=== PATIENT | female | born 1985 | race Caucasian/White ===

== ENCOUNTER → 2018-09-21 15:39 | Outpatient (CLI) | payer BC, SELFPAY ==
--- NOTE | 2018-09-21 15:41 | MR_ITS ---
MR lumbar spine wo con, MR 3-d myelogram/MRCP HISTORY: Low back pain, reported fracture by the patient. RT sided LBP. ITS.REASON: back pain ORDERING PHYSICIAN: Gen Yang MD PATIENT AGE: 33 years Comparison: None TECHNIQUE: Standard multiplanar multiecho sequences are performed without contrast. 3-D MIP and myelographic images are also rendered and reviewed FINDINGS: There is normal alignment. The spinal cord ends at the L1-L2 level. No obvious fracture or dislocation. No bone marrow edema evident within the lumbar vertebra. No disc herniation or canal stenosis. There is some mild facet and ligamentum flavum hypertrophy at L4-L5 and L5-S1 with mild bilateral foraminal narrowing. No paraspinal mass or paraspinal hematoma evident. IMPRESSION: 1. No acute finding. No fracture, disc herniation, or canal stenosis. 2. Mild bilateral foraminal narrowing at L4-L5 and L5-S1 from facet and ligamentum flavum hypertrophy
== END ==
PROVIDERS: PCP Emergency Medicine; Visit Provider Emergency Medicine
DX: S32.009A Unspecified fracture of unspecified lumbar vertebra, initial encounter for closed fracture (principal)
CPT/HCPCS: 72148; 76376

== ENCOUNTER → 2018-11-08 15:55 | Outpatient (POV) | payer BC, SELFPAY ==
[2018-11-08 16:06] VITALS: BP 158/98; PULSE 110; RESP 18; O2SAT 99
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
== END ==
PROVIDERS: PCP Emergency Medicine; Visit Provider Clinical Nurse Specialist Family Health
DX: M54.9 Dorsalgia, unspecified (principal); M99.83 Other biomechanical lesions of lumbar region; M46.00 Spinal enthesopathy, site unspecified
CPT/HCPCS: 99202

== ENCOUNTER → 2019-03-21 12:44 | Outpatient (POV) | payer BC, SELFPAY ==
[2019-03-21 13:21] VITALS: BP 153/98; PULSE 127; RESP 18; O2SAT 98; BMI 30.7
--- NOTE | 2019-03-21 13:37 | HMH.PAINSOAP ---
[facility] Pain Management SOAP Note Subjective:: Patient is a 33-year-old white female who we are treating for low back pain. Patient had an epidural injection back in November she stated it did not help her much she rates her pain today 4 out of 10 she states it gets worse throughout the day if she stands. She does state leaning forward does benefit her. She also has some positive facet loading. Patient and I had a long conversation in regards to moving forward. She has an MRI showing ligamentum flavum hypertrophy along with facet hypertrophy. ROS General: no recent weight change, no fever, no sleep disturbances Respiratory: no cough, no shortness of air, no recurring pulmonary infections Cardiovascular/Peripheral Vascular: No chest pain, No palpitations, no edema, no shortness of breath. Gastrointestinal: no incontinence, normal bowel movements reported Genitourinary: no incontinence Musculoskeletal: Back pain Psychiatric: normal mood/ affect, Neurological: [denies weakness in extremities], [denies balance issues] Objective:: Physical Exam General: Alert and oriented x3, no acute distress, pleasant and cooperative, [on room air] Lungs: Resps E/U, Symmetrical chest expansion, Eyes: PERRL Musculoskeletal: Flexion and extension of lumbar spine somewhat guarded secondary to pain, deep tendon reflexes normal, strength in upper and lower extremities [5/5], normal gait noted Neurological: speech clear, outside industrial sales representative equal, no gross sensory deficits Assessment:: Degenerative disc disease lumbar spine, ligamentum flavum hypertrophy, spinal stenosis, facet arthropathy Plan:: We will schedule an L4-L5 L5-S1 medial branch block bilaterally see if this is beneficial for the patient. If it is not we will follow-up with her and potentially discuss a vertiflex procedure. Patient's been instructed to call the office if she has any issues prior to her next appointment. She is currently not on any anticoagulation therapy. She is had this pain over 6 months. She is continuing a home stretching program. Dr. Hopkins has reviewed this note and agrees with this plan of care. This note was dictated using voice recognition software and may contain errors or omissions
== END ==
PROVIDERS: PCP Emergency Medicine; Visit Provider Clinical Nurse Specialist Family Health
DX: M51.36 Other intervertebral disc degeneration, lumbar region (principal); M46.00 Spinal enthesopathy, site unspecified; M48.00 Spinal stenosis, site unspecified; M12.88 Other specific arthropathies, not elsewhere classified, other specified site
CPT/HCPCS: 99212

== ENCOUNTER → 2019-03-29 11:47 | Outpatient (POV) | payer BC, SELFPAY ==
[2019-03-29 12:06] VITALS: BP 146/98; PULSE 119; RESP 18; O2SAT 98; BMI 31.9
--- NOTE | 2019-03-29 12:26 | XR_ITS ---
EXAM: XR lumbar spine 6V w bending HISTORY: ITS.REASON: BACK PAIN ORDERING PHYSICIAN: Gail Kumar APRN PATIENT AGE: 33 years COMPARISON: None FINDINGS: Normal alignment. No fracture or dislocation. No lytic or blastic change. No significant degenerative change. The disc spaces are preserved. Flexion-extension views are also obtained showing no evidence of abnormal subluxation in flexion or extension.. Incidental note made of spina bifida occulta of L1 IMPRESSION: Negative lumbar spine with no abnormal subluxation in flexion or extension
--- NOTE | 2019-03-29 16:00 | HMH.PAINSOAP ---
[facility] Pain Management SOAP Note Subjective:: Patient is a pleasant 33-year-old white female who presents today for low back pain. She is following up after a medial branch block/facet injection at L4-L5 and L5-S1. Patient says that this injection was not beneficial to her, but actually caused her worsening pain to her back after the injection. Patient says that she feels worse with standing and walking, but feels better when she leans forward. Patient has had pain for greater than 6 months. Patient has tried physical therapy, along with injective therapy, and anti-inflammatories with little to no relief. Patient is interested in discussing the Veriflex procedure. She had an MRI in the past that did show ligamentum flavum hypertrophy along with facet hypertrophy. Review of Systems General: No recent weight changes, no fever, no sleep disturbances Respiratory: No cough, no shortness of air, no recurring pulmonary infections Cardiovascular/peripheral vascular: No chest pain, no palpitations, no edema, no shortness of breath Gastrointestinal: No new onset incontinence, normal bowel movements reported Genitourinary: No new onset incontinence Musculoskeletal: Back pain Psychiatric: Normal mood/affect Neurological: [Denies weakness in extremities], [denies balance issues] Objective:: Physical exam General: Alert and oriented x3, no acute distress, pleasant and cooperative, [on room air] Lungs: Respirations even and unlabored, symmetrical chest expansion Eyes: PERRL Musculoskeletal: Flexion and extension of lumbar spine somewhat guarded secondary to pain, deep tendon reflexes normal, strength in upper and lower extremities [5/5], normal gait noted Neurological: Speech clear, dry ice maker equal, no gross sensory deficit Assessment:: Degenerative disc disease lumbar spine, ligamentum flavum hypertrophy, spinal stenosis, facet arthropathy Plan:: The patient would like to proceed with a vertical flex procedure. She is not on any anticoagulation therapy. She understands she will require x-rays prior to scheduling of the procedure. We will send her today for flexion and extension x-ray spine. We will follow-up with her after the x-ray to discuss the plan of care. She is been instructed to call the office if she has any concerns prior to her next appointment. Dr. Hopkins has reviewed this note and agrees with this plan of care. This note was dictated using voice recognition software and make contain errors or omissions.
--- NOTE | 2019-03-29 16:04 | P.CONS_ITS ---
[facility] Pain Management SOAP Note Subjective:: Patient is a pleasant 33-year-old white female who presents today for low back pain. She is following up after a medial branch block/facet injection at L4-L5 and L5-S1. Patient says that this injection was not beneficial to her, but actually caused her worsening pain to her back after the injection. Patient says that she feels worse with standing and walking, but feels better when she leans forward. Patient has had pain for greater than 6 months. Patient has tried physical therapy, along with injective therapy, and anti-inflammatories with little to no relief. Patient is interested in discussing the Veriflex procedure. She had an MRI in the past that did show ligamentum flavum hypertrop hy along with facet hypertrophy. Review of Systems General: No recent weight changes, no fever, no sleep disturbances Respiratory: No cough, no shortness of air, no recurring pulmonary infections Cardiovascular/peripheral vascular: No chest pain, no palpitations, no edema, no shortness of breath Gastrointestinal: No new onset incontinence, normal bowel movements reported Genitourinary: No new onset incontinence Musculoskeletal: Back pain Psychiatric: Normal mood/affect Neurological: [Denies weakness in extremities], [denies balance issues] Objective:: Physical exam General: Alert and oriented x3, no acute distress, pleasant and cooperative, [on room air] Lungs: Respirations even and unlabored, symmetrical chest expansion Eyes: PERRL Musculoskeletal: Flexion and extension of lumbar spine somewhat guarded secondary to pain, deep tendon reflexes normal, strength in upper and lower extremities [5/5], normal gait noted Neurological: Speech clear, bending machine operator equal, no gross sensory deficit Assessment:: Degenerative disc disease lumbar spine, ligamentum flavum hypertrophy, spinal stenosis, facet arthropathy Plan:: The patient would like to proceed with a vertical flex procedure. She is not on any anticoagulation therapy. She understands she will require x-rays prior to scheduling of the procedure. We will send her today for flexion and extension x-ray spine. We will follow-up with her after the x-ray to discuss the plan of care. She is been instructed to call the office if she has any concerns prior to her next appointment. Dr. Hopkins has reviewed this note and agrees with this plan of care. This note was dictated using voice recognition software and make contain errors or omissions.
== END ==
PROVIDERS: PCP Emergency Medicine; Visit Provider Clinical Nurse Specialist Family Health
DX: M51.36 Other intervertebral disc degeneration, lumbar region (principal); M46.00 Spinal enthesopathy, site unspecified; M48.00 Spinal stenosis, site unspecified; M79.3 Panniculitis, unspecified
CPT/HCPCS: 72114; 99212

== ENCOUNTER → 2019-04-05 09:36 | Outpatient (POV) | payer BC, SELFPAY ==
[2019-04-05 09:49] VITALS: BP 139/94; PULSE 84; RESP 18; O2SAT 99; BMI 30.4
--- NOTE | 2019-04-05 10:04 | HMH.PAINSOAP ---
[facility] Pain Management SOAP Note Subjective:: Patient is a pleasant 33-year-old white female who presents today for follow-up. She is being treated for low back pain with radicular symptoms. Patient was denied a vertiflex procedure. She is here today to discuss this. Patient says that she has tried all therapies and does not understand why she was denied. She says she only hurts when she takes care of her kids. She says that she has had this pain for longer than 6 months. She has also been performing a home stretching program. Patient says that she has been doing more physical activity recently which has increased her pain. She rates her pain a 6 out of 10 today. She would like to discuss other options for pain control. Review of Systems General: No recent weight changes, no fever, no sleep disturbances Respiratory: No cough, no shortness of air, no recurring pulmonary infections Cardiovascular/peripheral vascular: No chest pain, no palpitations, no edema, no shortness of breath Gastrointestinal: No new onset incontinence, normal bowel movements reported Genitourinary: No new onset incontinence Musculoskeletal: Back pain Psychiatric: Normal mood/affect Neurological: [Denies weakness in extremities], [denies balance issues] Objective:: Physical exam General: Alert and oriented x3, no acute distress, pleasant and cooperative, [on room air] Lungs: Respirations even and unlabored, symmetrical chest expansion Eyes: PERRL Musculoskeletal: Flexion and extension of lumbar spine somewhat guarded secondary to pain, deep tendon reflexes normal, strength in upper and lower extremities [5/5], normal gait noted Neurological: Speech clear, visually impaired teacher equal, no gross sensory deficit Assessment:: Degenerative disc disease lumbar spine, ligamentum flavum, spinal arthropathy Plan:: We did discuss other options concerning her pain. Patient is not interested in any type of biofeedback therapy, or physical therapy. She is, however, interested in dry needling. We will schedule the patient for dry needling with physical therapy and see her back in a month to reassess her symptoms at that time. She will continue home stretching, along with anti-inflammatories. She is been instructed to call the office if she has any concerns prior to her next appointment. Dr. Hopkins has reviewed this note and agrees with this plan of care. This note was dictated using voice recognition software and make contain errors or omissions.
== END ==
PROVIDERS: PCP Emergency Medicine; Visit Provider Clinical Nurse Specialist Family Health
DX: M51.36 Other intervertebral disc degeneration, lumbar region (principal); M12.88 Other specific arthropathies, not elsewhere classified, other specified site
CPT/HCPCS: 99212

== ENCOUNTER → 2020-08-24 13:41 | Outpatient (CLI) | payer OTHER, SELFPAY ==
[2020-08-26 09:02] LABS: Covid-19 Nasal PCR Sendout UK Not Detected
== END ==
PROVIDERS: PCP Emergency Medicine; Visit Provider Emergency Medicine
DX: Z03.818 Encounter for observation for suspected exposure to other biological agents ruled out (principal)
CPT/HCPCS: U0003

== ENCOUNTER 2021-04-15 15:47 | Emergency (ER) | payer OTHER, SELFPAY ==
[2021-04-15 15:47] VITALS: BP 156/100; PULSE 102; RESP 18; TEMP 36.8; O2SAT 97; BMI 30.7
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
[2021-04-15 18:35] VITALS: BP 133/91; PULSE 90; RESP 18; TEMP 36.9; O2SAT 94
== END 2021-04-15 18:36 | disposition home or self-care (01) ==
PROVIDERS: Emergency Provider Emergency Medicine; PCP Emergency Medicine
DX: M43.6 Torticollis (principal); V53.5XXA Driver of pick-up truck or van injured in collision with car, pick-up truck or van in traffic accident, initial encounter; Y92.414 Local residential or business street as the place of occurrence of the external cause
CPT/HCPCS: 70450; 72125; 99282

== ENCOUNTER → 2021-05-23 15:43 | Outpatient (CLI) | payer OTHER, SELFPAY ==
--- NOTE | 2021-05-23 15:43 | MR_ITS ---
PROCEDURE: MR LUMBAR SPINE WO CON CLINICAL INDICATION: back pain COMPARISON: MR SPLUMBWO MR lumbar spine wo con from 09/21/2018 TECHNIQUE: Standard multiplanar multiecho sequences are performed without contrast. 3-D MIP and myelographic images are also rendered and reviewed FINDINGS: Normal alignment. Spinal cord ends at the L1-L2 level. L1-L2: Unremarkable. L2-L3: Unremarkable. L3-L4: Unremarkable. L4-5: Mild facet and ligamentum hypertrophic change with mild bilateral lateral recess and mild left-sided foraminal narrowing. L5-S1: Minimal bulging disc. Facet and ligamentum hypertrophic change with mild bilateral foraminal narrowing left greater than right. No extruded herniated disc. No bony canal stenosis. IMPRESSION: 1. L4-5: Mild facet and ligamentum hypertrophic change with mild bilateral lateral recess and mild left-sided foraminal narrowing. L5-S1: Minimal bulging disc. Facet and ligamentum hypertrophic change with mild bilateral foraminal narrowing left greater than right. 2. No extruded herniated disc. 3. No bony canal stenosis. Dictated by: Darius Hair MD 05/24/2021 14:42 Darius Hair MD in [place] 05/24/2021 14:42
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
--- NOTE | 2021-05-23 17:03 | MR_ITS ---
PROCEDURE: MR HEAD/BRAIN WO CON CLINICAL INDICATION: concussion headache COMPARISON: CT CT HEAD/BRAIN WO CON from 04/15/2021 TECHNIQUE: Routine multiplanar multi echo sequences are performed without gadolinium enhancement. FINDINGS: No midline shift, mass effect, intracranial hemorrhage, or hydrocephalus is evident. No evidence of acute infarction. The cerebellopontine angle, cerebellum, and brainstem have an unremarkable appearance. The pituitary, optic chiasm, corpus callosum, and craniocervical junction are unremarkable. No mastoid effusion or sinus air-fluid level. There is mild leftward nasal septal deviation. The orbits have an unremarkable appearance the hippocampal structures are unremarkable in the temporal horns are symmetric. IMPRESSION: Negative MRI of the brain without contrast Dictated by: Darius Hair MD 05/24/2021 10:40 Darius Hair MD in [place] 05/24/2021 10:40
== END ==
PROVIDERS: PCP Emergency Medicine; Visit Provider Emergency Medicine
DX: M54.2 Cervicalgia (principal); M54.9 Dorsalgia, unspecified; S16.1XXA Strain of muscle, fascia and tendon at neck level, initial encounter; S06.0X9A Concussion with loss of consciousness of unspecified duration, initial encounter; V87.7XXA Person injured in collision between other specified motor vehicles (traffic), initial encounter
CPT/HCPCS: 70551; 72141; 72148; 76376

== ENCOUNTER 2021-06-01 11:41 | Emergency (ER) | payer OTHER, SELFPAY ==
--- NOTE | 2021-06-01 13:13 | HMH.EDUTC ---
[facility] [place] Clinical Impression: Strep throat, Exposure to COVID-19 virus Disposition: Home, Self-Care Condition on Discharge: Good Instructions: Strep Throat, DI for Strep Throat, DI for COVID-19 (Suspected or Confirmed ), Preventing the Spread of Coronavirus Discharge Instructions Additional Instructions: Drink plenty of fluids. Take tylenol or ibuprofen for pain or fever. Take the medications as directed. Follow up with your regular doctor. GO TO THE ER FOR ANY WORSENING SYMPTOMS Throw your tooth brush away and get a new one. Quarantine until you know the results of your covid-19 test. If it is positive, the health department should call you and give you further instructions about your length of Quarantine and other things. Notify your school or workplace of your results and follow their instructions regarding return to work/school. Prescriptions: Brompheniramine/Pseudoephed/Dm [Bromfed Dm Cough Syrup] 5 ml PO Q6HP PRN #240 ml PRN Reason: Cough Transmission Status: Received by [facility] Cefdinir [Omnicef 300mg Capsule] 300 mg PO BID #20 cap Transmission Status: Received by [facility] Referrals: Gen Yang MD [Primary Care Provider] - Forms: Work/School Release Time of Disposition: 14:04 Medical Decision Making - Medical Records Medical records reviewed: No: I reviewed the patient's medical records. - Mihir Inquiry Pt receiving controlled substance: No Vital Signs: 06/01/21 13:14 06/01/21 14:20 Temperature 97.8 F 97.8 F Temperature Source Oral Tympanic Pulse Rate 103 H Pulse Rate [Apical] 103 H Respiratory Rate 18 18 Blood Pressure 167/115 H Blood Pressure [Right Arm] 167/115 H Blood Pressure Mean [Right Arm] 132 Blood Pressure Source Automatic Cuff Blood Pressure Source [Right Arm] Automatic Cuff Blood Pressure Position Sitting Blood Pressure Position [Right Arm] Sitting 02 Sat by Pulse Oximetry 96 Oxygen Delivery Method Room Air Room Air - Lab Data Lab results reviewed: Yes: I reviewed the patient's lab results. Lab Results 06/01/21 13:23: Strep Scn Rapid Clinic Positive A 06/01/21 13:30: Chlamy pneumoniae PCR Not detected, Adenovirus (PCR) Not detected, B. pertussis DNA (PCR) Not detected, Coronavirus OC43 (PCR) Not detected, Coronavirus HKU1 (PCR) Not detected, Coronavirus 229E (PCR) Not detected, SARS-CoV-2 (PCR) Not detected, Coronavirus NL63 (PCR) Not detected, Human Metapneumovir PCR Not detected, Influenza A (H1) PCR Not detected, Influ A (H1N1/09) PCR Not detected, Influenza A (H3) PCR Not detected, Influenza Type A (PCR) Not detected, Influenza Type B (PCR) Not detected, M. pneumoniae (PCR) Not detected, Parainfluenza 1 (PCR) Not detected, Parainfluenza 2 (PCR) Not detected, Parainfluenza 3 (PCR) Not detected, Parainfluenza 4 (PCR) Not detected, RSV (PCR) Not detected, Entero/Rhino (PCR) Not detected [facility] [place] HPI - General Stated complaint: fever, cough,sore throat, soa, Time Seen by Provider: 06/01/21 13:13 - History of Present Illness Provider Complaint: She c/o sore throat, cough, low grade fever and chills for the past 3 days. She is a teacher. She has had the first shot of the 2 shot regimen for covid. - Related Data Previous Rx's Medication Instructions Recorded Lidocaine [Lidoderm 5% transdermal 1 each TP Q12H PRN #10 adh..patch 04/15/21 patch] clonazepam 0.5 mg tablet 0.5 mg PO TID #90 tab 05/01/21 tramadol 50 mg tablet 50 mg PO TID #90 tab 05/01/21 bisoprolol fumarate 5 mg tablet See Rx Instructions .ROUTE 05/22/21 .COMPLEX #90 tab duloxetine 30 mg capsule,delayed See Rx Instructions .ROUTE 05/22/21 release .COMPLEX #90 cap lisinopril 40 mg tablet 40 mg PO DAILY #90 tab 05/22/21 metformin 500 mg tablet 500 mg PO DAILY #30 tab 05/22/21 sumatriptan succinate 25 mg tablet See Rx Instructions .ROUTE 05/22/21 .COMPLEX #9 tab tizanidine 4 mg capsule 4 mg PO TID PRN #90 cap 05/22/21 amitriptyline 100
[2021-06-01 13:14] VITALS: BP 167/115; PULSE 103; RESP 18; TEMP 36.6; O2SAT 96; BMI 32.5
[2021-06-01 13:58] LABS: UTC Strep Screen (Rapid) Positive (Negative)
[2021-06-01 14:20] VITALS: BP 167/115; PULSE 103; RESP 18; TEMP 36.6; O2SAT 96
[2021-06-01 14:30] LABS: Adenovirus,PCR Not Detected (NotDetected); Bordetella Pertussis Not Detected (NotDetected); Chlamydophila Pneumoniae, PCR Not Detected (NotDetected); Coronavirus 19, PCR Not Detected (NotDetected); Coronavirus 229E Not Detected (NotDetected); Coronavirus NL63 Not Detected (NotDetected); Coronavirus OC43 Not Detected (NotDetected); Coronovirus HKU1,PCR Not Detected (NotDetected); Human Metapneumovirus Not Detected (NotDetected); Influenza A, PCR Not Detected (NotDetected); Influenza AH1, 2009 Not Detected (NotDetected); Influenza AH1, PCR Not Detected (NotDetected); Influenza AH3,PCR Not Detected (NotDetected); Influenza B, PCR Not Detected (NotDetected); Mycoplasma Pneumoniae, PCR Not Detected (NotDetected); Parainfluenza 1, PCR Not Detected (NotDetected); Parainfluenza 2, PCR Not Detected (NotDetected); Parainfluenza 3, PCR Not Detected (NotDetected); Parainfluenza 4, PCR Not Detected (NotDetected); Respiratory Syncytial Virus Not Detected (NotDetected); Rhinovirus/Enterovirus Not Detected (NotDetected)
== END 2021-06-01 14:21 | disposition home or self-care (01) ==
PROVIDERS: Emergency Provider Nurse Practitioner Family; PCP Emergency Medicine
DX: J02.0 Streptococcal pharyngitis (principal); Z20.822 Contact with and (suspected) exposure to COVID-19
CPT/HCPCS: 87581; 87632; 87798; 87880; 99202; C9803; G0463; U0003; U0005

== ENCOUNTER 2021-06-28 18:20 | Emergency (ER) | payer OTHER, SELFPAY ==
[2021-06-28 18:54] VITALS: BP 127/92; PULSE 110; RESP 20; TEMP 37.2; O2SAT 98; BMI 32.8
--- NOTE | 2021-06-28 19:00 | HMH.EDUTC ---
[facility] [place] Disposition Clinical Impression: Viral syndrome Disposition: Home, Self-Care Condition on Discharge: Good Instructions: DI for Viral Syndrome, Sore Throat, DI for Headache Additional Instructions: *Monitor Temp, Over the counter Motrin or Tylenol as directed/as needed Tylenol every 4 hours and Motrin every 6 hours (as long as your family doctor has told you that you can take it) for fever or pain. and straight to ER if unable to lower temp less than 101.0 after medication given *Warm salt water gargles may help to soothe the throat *Throat Lozenges *Warm fluids like tea with honey may help to soothe the throat *Sleep elevated *Humidifier/Vaporizer Your throat swab was sent for culture. Those results are typically sent to your primary care. Be sure to follow up in 2-3 days with your family doctor/primary care physician if no improvement so they can review those result and treat if necessary. If you don?t have a primary care doctor, I recommend you get one but in the mean time, you will have to return to a walk in clinic Follow up IMMEDIATELY for new or worsening symptoms or no Noticeable improvement over the next 48-72 hours. 911 for difficulty breathing or swallowing Referrals: Gen Yang MD [Primary Care Provider] - As needed Time of Disposition: 19:16 Medical Decision Making - Mihir Inquiry Pt receiving controlled substance: No Mihir was queried for this patient: No Vital Signs: 06/28/21 18:54 Temperature 98.9 F Temperature Source Temporal Artery Scan Pulse Rate [Right Brachial] 110 H Respiratory Rate 20 Blood Pressure [Right Arm] 127/92 H Blood Pressure Mean [Right Arm] 103 Blood Pressure Source [Right Arm] Automatic Cuff Blood Pressure Position [Right Arm] Standing 02 Sat by Pulse Oximetry 98 Oxygen Delivery Method Room Air - Lab Data Lab results reviewed: Yes: I reviewed the patient's lab results. Lab Results 06/28/21 18:46: Strep Scn Rapid Clinic Negative Orders (Tests/Meds): ORDERS Category Date Time Status Strep Screen Confirmation Stat Micro 06/28/21 18:46 Received [facility] [place] HPI - General Stated complaint: sore throat,vomiting REEVES Time Seen by Provider: 06/28/21 19:00 Mode of Arrival: Ambulatory Source of Information: Patient Limitations: No Limitations Description of Symptoms (Recalled from Triage Doc. by RN): PATIENT C/O SORE THROAT AND HEADACHE HEENT Symptoms (Recalled from RN notes): Yes Resp Symptoms (Recalled from RN notes): No Skin Symptoms (Recalled from RN notes): No MS Symptoms (Recalled from RN notes): No Functional Status (Recalled from RN notes): WNL - History of Present Illness Provider Complaint: Patient states that she thinks she may have strep throat States that she has been having headache and sore throat for about 3 days that hasnt got better and her children have had similar symptoms so she came in to get checked and tested - Related Data Previous Rx's Medication Instructions Recorded Lidocaine [Lidoderm 5% transdermal 1 each TP Q12H PRN #10 adh..patch 04/15/21 patch] clonazepam 0.5 mg tablet 0.5 mg PO TID #90 tab 05/01/21 tramadol 50 mg tablet 50 mg PO TID #90 tab 05/01/21 bisoprolol fumarate 5 mg tablet See Rx Instructions .ROUTE 05/22/21 .COMPLEX #90 tab duloxetine 30 mg capsule,delayed See Rx Instructions .ROUTE 05/22/21 release .COMPLEX #90 cap lisinopril 40 mg tablet 40 mg PO DAILY #90 tab 05/22/21 metformin 500 mg tablet 500 mg PO DAILY #30 tab 05/22/21 sumatriptan succinate 25 mg tablet See Rx Instructions .ROUTE 05/22/21 .COMPLEX #9 tab tizanidine 4 mg capsule 4 mg PO TID PRN #90 cap 05/22/21 amitriptyline 100 mg tablet 100 mg PO DAILY #90 tab 05/24/21 Brompheniramine/Pseudoephed/Dm 5 ml PO Q6HP PRN #240 ml 06/01/21 [Bromfed Dm Cough Syrup] Cefdinir [Omnicef 300mg Capsule] 300 mg PO BID #20 cap 06/01/21 Allergies Allergy/AdvReac Type Severity Reaction Status Date / Time No Known Allergies Allergy Verified
[2021-06-28 19:01] LABS: UTC Strep Screen (Rapid) Negative (Negative)
[2021-06-28 19:17] VITALS: BP 127/92; PULSE 110; RESP 20; TEMP 37.2; O2SAT 98
== END 2021-06-28 19:27 | disposition home or self-care (01) ==
PROVIDERS: Emergency Provider Nurse Practitioner; PCP Emergency Medicine
DX: B34.9 Viral infection, unspecified (principal); J02.9 Acute pharyngitis, unspecified; F41.8 Other specified anxiety disorders
CPT/HCPCS: 87880; 99202; G0463

== ENCOUNTER 2021-08-10 17:04 | Emergency (ER) | payer OTHER, SELFPAY ==
[2021-08-10 17:10] VITALS: BP 127/86; PULSE 109; RESP 19; TEMP 36.9; O2SAT 99; BMI 34.5
--- NOTE | 2021-08-10 17:41 | HMH.EDUTC ---
[facility] [place]: Cough Disposition: Home, Self-Care Condition on Discharge: Good Instructions: Cough, DI for COVID-19 (Suspected or Confirmed ), Preventing the Spread of Coronavirus Discharge Instructions Additional Instructions: ? Monitor temp. Tylenol every 4 hours as needed and / or ibuprofen every 6 hours as needed ( As long as your primary care physician has told you that it ok to take both. For fever/aches/pains ER if no less than 101 despite Tylenol or Motrin ? Humidifier/vaporizer or hot steamy shower *Tessalon Perles will not cause drowsiness but use at bedtime to help stop cough so that you may get some rest. Finish taking the Azithromycin Follow up IMMEDIATELY for new or worsening of symptoms OR no noticeable improvement over the next 48-72 hours. 911 immediately for any life threatening symptoms such as chest pain or difficulty breathing You were tested for today for COVID19 your test result should be back in the next 24-48 hours, you may check for your result on the [facility] [facility] portal if you have trouble logging on you may call for assistance or get you results in person from Health Information office Thursday 8am 430pm You was given a handout with instructions for Self Quarantine and Self isolation for while you wait on test results and what to do if they are positive If you are positive the Health Dept will be contacting you also Prescriptions: Benzonatate [Benzonatate 100mg cap] 100 mg PO Q8HP PRN #30 cap PRN Reason: Cough Transmission Status: Received by [facility] Referrals: Gen Yang MD [Primary Care Provider] - As needed Forms: Work/School Release Medical Decision Making - Mihir Inquiry Pt receiving controlled substance: No Mihir was queried for this patient: No Vital Signs: 08/10/21 17:10 08/10/21 18:02 Temperature 98.4 F 98.4 F Temperature Source Oral Pulse Rate 109 H Pulse Rate [Right Brachial] 109 H Respiratory Rate 19 19 Blood Pressure 127/86 Blood Pressure [Right Arm] 127/86 Blood Pressure Mean [Right Arm] 99 Blood Pressure Source [Right Arm] Automatic Cuff Blood Pressure Position [Right Arm] Sitting 02 Sat by Pulse Oximetry 99 Oxygen Delivery Method Room Air Orders (Tests/Meds): ED MEDICATIONS Discontinued Medications Generic Name Dose Route Start Last Admin Trade Name Freq PRN Reason Stop Dose Admin Ceftriaxone Sodium 1 gm 08/10/21 17:50 08/10/21 18:00 Ceftriaxone 1gm Vial IM 08/10/21 17:51 1 gm ONCE ONE Administration Lidocaine HCl 0 ml 08/10/21 17:50 08/10/21 18:00 Lidocaine 1% 5ml Pf Vial IM 08/10/21 17:51 2 ml ONCE ONE Administration Methylprednisolone Sodium Succinate 125 mg 08/10/21 17:50 08/10/21 18:00 Methylprednisolone Sod Succ 125mg Vial IM 08/10/21 17:51 125 mg ONCE ONE Administration ORDERS Category Date Time Status Covid-19 Nasal PCR ([facility]) Routine Lab 08/10/21 17:20 [place] [facility] [place] - General Stated complaint: cough, congestion Time Seen by Provider: 08/10/21 17:41 Mode of Arrival: Ambulatory Source of Information: Patient Limitations: No Limitations Description of Symptoms (Recalled from Triage Doc. by RN): PATIENT C/O CONGESTION, DRY COUGH AND FATIGUE X 3 DAYS HEENT Symptoms (Recalled from RN notes): Yes Resp Symptoms (Recalled from RN notes): Yes Skin Symptoms (Recalled from RN notes): No MS Symptoms (Recalled from RN notes): No Functional Status (Recalled from RN notes): wnl - History of Present Illness Provider Complaint: Patient states that she was recently exposed to someone that was positive for COVID states that she has been having bad cough, sinus congestion and feeling tired and achy for several days State that today her cough was still happening and she was tired from not being able to sleep from it so she came in to get tested for COVID and try to see if she could get something else for the cough - Related Data Previous Rx's M
[2021-08-10 18:02] VITALS: BP 127/86; PULSE 109; RESP 19; TEMP 36.9; O2SAT 99
== END 2021-08-10 18:13 | disposition home or self-care (01) ==
PROVIDERS: Emergency Provider Nurse Practitioner; PCP Emergency Medicine
DX: Z20.822 Contact with and (suspected) exposure to COVID-19 (principal); J02.9 Acute pharyngitis, unspecified; R05.1 Acute cough; R51.9 Headache, unspecified
CPT/HCPCS: 96372; 99202; C9803; G0463; U0003; U0005

== ENCOUNTER → 2021-09-19 11:31 | Outpatient (CLI) | payer OTHER, SELFPAY ==
--- NOTE | 2021-09-19 11:35 | XR_ITS ---
FINAL REPORT CLINICAL HISTORY: RT WRIST PAIN, after fall FINDINGS: 2 views of the right wrist were obtained. There is no acute fracture. There is no dislocation. The joint spaces are intact. There is no acute soft tissue abnormality. IMPRESSION: No acute process. Reviewed, Interpreted and Dictated by Sae Sharp MD Transcribed by Jose Urbina Authenticated by Sae Sharp MD on 09/19/2021 12:22:16 PM [facility]
== END ==
PROVIDERS: PCP Emergency Medicine; Visit Provider Nurse Practitioner Family
DX: M25.531 Pain in right wrist (principal)
CPT/HCPCS: 73100

== ENCOUNTER → 2021-11-01 16:00 | Outpatient (CLI) | payer OTHER, SELFPAY ==
[2021-11-01 18:43] LABS: HCG,Quantitative < 2 mIU/ml (0-5.42)
== END ==
PROVIDERS: Visit Provider Emergency Medicine
DX: O03.9 Complete or unspecified spontaneous abortion without complication (principal)
CPT/HCPCS: 84702

== ENCOUNTER → 2022-02-11 14:34 | Outpatient (CLI) | payer BC, OTHER, SELFPAY | PROVIDERS: PCP Emergency Medicine; Visit Provider Nurse Practitioner Obstetrics & Gynecology | DX: N92.6 Irregular menstruation, unspecified (principal) | CPT/HCPCS: 36415; 84702 ==

== ENCOUNTER → 2022-02-21 12:52 | Outpatient (CLI) | payer OTHER, SELFPAY ==
--- NOTE | 2022-02-21 12:52 | US_ITS ---
FINAL REPORT CLINICAL HISTORY: for dates FINDINGS: Sonographic images of the pelvis were obtained. A single, living intrauterine is noted. A yolk sac is present and measures 0.64 cm. Mio to rump length measures 2.05 cm which corresponds to 8 weeks 5 days gestation. Heartbeat is identified and measures 160 beats per minute. The right ovary is within normal limits. The left ovary is within normal limits. IMPRESSION: Single, living, intrauterine gestation with 8 weeks 5 days gestational age. Reviewed, Interpreted and Dictated by Manpreet Dunlap III, MD Transcribed by Yesy Aviles Authenticated and . [facility]
== END ==
PROVIDERS: PCP Emergency Medicine; Visit Provider Nurse Practitioner Obstetrics & Gynecology
DX: Z34.90 Encounter for supervision of normal pregnancy, unspecified, unspecified trimester (principal)
CPT/HCPCS: 76801

== ENCOUNTER 2022-03-03 20:22 | Emergency (ER) | payer BC, OTHER, SELFPAY ==
[2022-03-03 20:23] VITALS: BP 151/100; PULSE 133; RESP 16; TEMP 36.7; O2SAT 100; BMI 33.9
--- NOTE | 2022-03-03 20:33 | XR_ITS ---
PROCEDURE INFORMATION: Exam: XR Chest Exam date and time: 03/03/2022 8:51 PM Age: 36 years old Clinical indication: Cough; Additional info: Covid symptoms TECHNIQUE: Imaging protocol: Radiologic exam of the chest. Views: 2 views. COMPARISON: MR CERVICAL SPINE WO CON 05/23/2021 5:09 PM FINDINGS: Lungs: 8 mm nodular opacity within the right lower lung zone. No lobar consolidation. Pleural spaces: No pleural effusion. No pneumothorax. Heart/Mediastinum: No cardiomegaly. Bones/joints: Unremarkable. IMPRESSION: 8 mm opacity within the right lower lung zone which may be a nodule or granuloma. No lobar consolidation.
[2022-03-03 20:43] LABS: Influenza A, PCR Not Detected (NotDetected); Influenza B, PCR Not Detected (NotDetected)
[2022-03-03 21:04] LABS: Basophils # 0.1 K/mm3 (0-0.2); Basophils % 2.4 % (0.1-2.0); Eosinophils # 0.1 K/mm3 (0.0-0.4); Eosinophils % 1.2 % (0.1-12.0); Hematocrit 35.2 % (37.0-47.0); Hemoglobin 11.7 g/dL (12.2-16.2); Lymphocytes # 1.3 K/mm3 (0.7-4.5); Lymphocytes % 25.5 % (10-50); Mean Corpuscular HGB Conc 33.1 g/dL (31.8-35.4); Mean Corpuscular Hemoglobin 29.4 pg (27.0-31.2); Mean Corpuscular Volume 88.9 fl (81-99); Mean Platelet Volume 8.4 fl (7.4-10.4); Monocytes # 0.4 K/mm3 (0.1-1.0); Monocytes % 8.3 % (1.7-9.3); Neutrophils # 3.3 K/mm3 (1.8-7.8); Neutrophils % 62.6 % (37.0-80.0); Platelet Count 341 K/mm3 (142-424); Red Blood Count 3.96 M/mm3 (4.20-5.40); Red Cell Distribution Width 14.6 % (11.5-17.5); White Blood Count 5.2 K/mm3 (4.8-10.8)
[2022-03-03 21:11] LABS: Coronavirus 19, PCR Detected (NotDetected)
[2022-03-03 21:16] LABS: Chloride 100 mmol/L (98-107); Sodium 134 mmol/L (136-145)
[2022-03-03 21:17] LABS: Potassium 3.6 mmoL/L (3.5-5.1)
[2022-03-03 21:19] LABS: Alanine Aminotransferase 19 U/L (12-78); Albumin Level 4.4 g/dl (3.5-5.0); Albumin/Globulin Ratio 1.4 (1.1-1.8); Alkaline Phosphatase 56 U/L (38-126); Anion Gap 10.6 mEq/L (5-15); Aspartate Amino Transferase 29 U/L (14-36); Bilirubin,Total 0.2 mg/dl (0.2-1.3); Blood Urea Nitrogen 7 mg/dl (7-17); Carbon Dioxide 27 mmol/L (22.0-30.0); Creatinine Clearance Estimated 195 mL/min (50-200); Estimated Glomerular Filt Rate 113 ml/min (>60); GFR (African American) 137 ML/MIN (>60); Globulin 3.2 g/dL (1.3-3.2); Glucose 137 mg/dl (74-100); Total Protein,Serum 7.6 g/dl (6.3-8.2)
[2022-03-03 21:20] LABS: Calcium 9.3 mg/dl (8.4-10.2)
--- NOTE | 2022-03-03 22:09 | HMH.EDURI ---
ED Disposition Clinical Impression: COVID-19 Qualifiers: Weeks of gestation: 10 weeks Qualified Code(s): Z3A.10 - 10 weeks gestation of Disposition: Home, Self-Care Condition on Discharge: Good Instructions: DI for COVID-19 (Suspected or Confirmed ) Additional Instructions: fluids and call ob in am Referrals: Gen Yang MD [Primary Care Provider] - - Critical Care Critical Care Time: No Attestation: On 03/03/22, the high probability of a clinically significant, sudden or life threatening deterioration of the following system(s) required my full and direct attention, intervention and personal management. The time I documented below is in addition to time spent performing reported procedures but includes the following listed in this critical care notation. Medical Decision Making - Medical Records Medical records reviewed: Yes: I reviewed the patient's medical records. - Mihir Inquiry Pt receiving controlled substance: No Vital Signs: 03/03/22 20:23 Temperature 98.1 F Temperature Source Oral Pulse Rate [Left Radial] 133 H Respiratory Rate 16 Blood Pressure [Right Arm] 151/100 H Blood Pressure Mean [Right Arm] 117 Blood Pressure Source [Right Arm] Automatic Cuff Blood Pressure Position [Right Arm] Sitting 02 Sat by Pulse Oximetry 100 Oxygen Delivery Method Room Air - Lab Data Lab results reviewed: Yes: I reviewed the patient's lab results. Lab Results 03/03/22 20:26: SARS-CoV-2 (PCR) Detected A, Influenza A Untype (PCR) Not detected, Influenza Type B (PCR) Not detected 03/03/22 20:57: WBC 5.2, RBC 3.96 L, Hgb 11.7 L, Hct 35.2 L, MCV 88.9, MCH 29.4, MCHC 33.1, RDW 14.6, Plt Count 341, MPV 8.4, Neut % (Auto) 62.6, Lymph % (Auto) 25.5, [place] % (Auto) 8.3, Eos % (Auto) 1.2, Baso % (Auto) 2.4 H, Neut # (Auto) 3.3, Lymph # (Auto) 1.3, [place] # (Auto) 0.4, Eos # (Auto) 0.1, Baso # (Auto) 0.1 03/03/22 20:57: Sodium 134 L, Potassium 3.6, Chloride 100, Carbon Dioxide 27, Anion Gap 10.6, BUN 7, Creatinine 0.60, Estimated Creat Clear 195, Estimated GFR 113, Est GFR ( Amer) 137, Glucose 137 H, Calcium 9.3, Total Bilirubin 0.2, AST 29, ALT 19, Alkaline Phosphatase 56, Total Protein 7.6, Albumin 4.4, Globulin 3.2, Albumin/Globulin Ratio 1.4 Result diagrams: 03/03/22 20:57 03/03/22 20:57 Orders (Tests/Meds): ED MEDICATIONS Discontinued Medications Generic Name Dose Route Start Last Admin Trade Name Freq PRN Reason Stop Dose Admin Acetaminophen 650 mg 03/03/22 23:11 03/03/22 23:13 Acetaminophen 325mg Tab PO 03/03/22 23:12 650 mg ONCE ONE Administration Sodium Chloride 1,000 mls @ 999 mls/hr 03/03/22 20:45 03/03/22 20:44 Sod Chlor 0.9% 1000ml Bag IV 03/03/22 21:45 999 mls/hr .Q1H1M KAT Administration Sodium Chloride 1,000 mls @ 999 mls/hr 03/03/22 22:30 03/03/22 22:32 Sod Chlor 0.9% 1000ml Bag IV 03/03/22 23:30 999 mls/hr .Q1H1M KAT Administration Promethazine HCl 25 mg 03/03/22 22:18 03/03/22 22:32 Promethazine Hcl 25mg/Ml 1ml Vial IV 03/03/22 22:19 25 mg ONCE ONE Administration Sodium Chloride 25 ml 03/03/22 22:18 Sodium Chloride 0.9% 25ml Bag IV 03/03/22 22:19 ONCE ONE - Radiology Data #1 Image(s): Chest Image Reviewed: Yes I have reviewed radiologist's interpretation Preliminary Findings: Normal/NAD - Physician Consults Physician Consulted: shae Reason -: Pt condition Medical Decision Narrative: covid-19 with stable exam and labs - URI/Sore Throat HPI - General Chief Complaint: Upper Respiratory Infection Stated Complaint: exposed to covid, SOA, body aches cough sore throa Time Seen by Provider: 03/03/22 22:09 Mode of Arrival: Ambulatory Source of Information: Patient, Medical Record Limitations: No Limitations Description of Symptoms (Recalled from ER Triage Doc. by RN): PT REPORTS RECENT KNOWN COVID EXPOSURE. PT STATES SHE IS COUGHING AND ACHES ALL OVER AND HAS NAUSEA. - Histor
--- NOTE | 2022-03-03 22:12 | PC.NURSE ---
Trey on phone radhath Dr ibarra @ this time
[2022-03-04 00:05] VITALS: BP 156/73; PULSE 83; RESP 18; TEMP 37.2; O2SAT 97
== END 2022-03-04 00:11 | disposition home or self-care (01) ==
PROVIDERS: Emergency Provider Emergency Medicine; PCP Emergency Medicine
DX: U07.1 COVID-19 (principal); J06.9 Acute upper respiratory infection, unspecified; F32.A Depression, unspecified; F41.9 Anxiety disorder, unspecified; I10 Essential (primary) hypertension; G43.909 Migraine, unspecified, not intractable, without status migrainosus; M35.00 Sjogren syndrome, unspecified; Z79.82 Long term (current) use of aspirin
CPT/HCPCS: 71046; 80053; 85025; 96361; 96374; 99284; C9803; U0003; U0005

== ENCOUNTER → 2022-03-26 16:52 | Outpatient (CLI) | payer OTHER, SELFPAY | PROVIDERS: Visit Provider Obstetrics & Gynecology | DX: Z34.90 Encounter for supervision of normal pregnancy, unspecified, unspecified trimester (principal); N39.0 Urinary tract infection, site not specified | CPT/HCPCS: 87086 ==

== ENCOUNTER → 2022-03-31 16:57 | Outpatient (CLI) | payer OTHER, SELFPAY ==
[2022-03-31 18:01] LABS: Basophils % 0.2 % (0.1-2.0); Eosinophils # 0.3 K/mm3 (0.0-0.4); Eosinophils % 3.2 % (0.1-12.0); Hemoglobin 10.9 g/dL (12.2-16.2); Lymphocytes # 2.1 K/mm3 (0.7-4.5); Lymphocytes % 25.6 % (10-50); Mean Corpuscular HGB Conc 33.1 g/dL (31.8-35.4); Mean Corpuscular Hemoglobin 28.6 pg (27.0-31.2); Mean Corpuscular Volume 86.4 fl (81-99); Mean Platelet Volume 7.3 fl (7.4-10.4); Monocytes # 0.3 K/mm3 (0.1-1.0); Monocytes % 3.5 % (1.7-9.3); Neutrophils # 5.6 K/mm3 (1.8-7.8); Neutrophils % 67.5 % (37.0-80.0); Platelet Count 340 K/mm3 (142-424); Red Blood Count 3.82 M/mm3 (4.20-5.40); Red Cell Distribution Width 13.9 % (11.5-17.5); White Blood Count 8.3 K/mm3 (4.8-10.8)
[2022-04-02 08:15] LABS: HSV 1 IgG, Type Spec <0.91 index (0.00-0.90); HSV 2 IgG, Type Spec <0.91 index (0.00-0.90); Rubella Antibodies, IgG 2.78 index (Immune >0.99)
[2022-04-02 09:13] LABS: HIV Screen 4th Generation wRfx Non Reactive (Non Reactive); Hepatitis B Surface Antigen Negative (Negative); Hepatitis C Antibody 0.1 s/co ratio (0.0-0.9)
[2022-04-02 12:17] LABS: Rapid Plasma Reagin Ab Titer Non Reactive (NonRea<1:1)
== END ==
PROVIDERS: Nurse Practitioner Obstetrics & Gynecology; PCP Emergency Medicine; Visit Provider Obstetrics & Gynecology
DX: Z34.90 Encounter for supervision of normal pregnancy, unspecified, unspecified trimester (principal)
CPT/HCPCS: 36415; 85025; 86592; 86695; 86703; 86762; 86790; 86850; 87340; 87380; G0432

== ENCOUNTER → 2022-04-29 16:29 | Outpatient (CLI) | payer OTHER, SELFPAY ==
[2022-04-29 17:19] LABS: Creatinine,Urine Random 238 mg/dL (Not Estab.)
[2022-04-29 17:20] LABS: Microalbumin/Creatinine Ratio 5.1
[2022-04-29 17:26] LABS: Chloride 104 mmol/L (98-107); Potassium 3.9 mmoL/L (3.5-5.1); Sodium 135 mmol/L (136-145)
[2022-04-29 17:29] LABS: Alanine Aminotransferase 13 U/L (12-78); Albumin Level 3.9 g/dl (3.5-5.0); Albumin/Globulin Ratio 1.3 (1.1-1.8); Alkaline Phosphatase 55 U/L (38-126); Anion Gap 9.9 mEq/L (5-15); Aspartate Amino Transferase 20 U/L (14-36); Blood Urea Nitrogen 6 mg/dl (7-17); Carbon Dioxide 25 mmol/L (22.0-30.0); Estimated Glomerular Filt Rate 140 ml/min (>60); GFR (African American) 169 ML/MIN (>60); Globulin 2.9 g/dL (1.3-3.2); Total Protein,Serum 6.8 g/dl (6.3-8.2)
[2022-04-29 17:30] LABS: Bilirubin,Total < 0.1 mg/dl (0.2-1.3); Calcium 9.3 mg/dl (8.4-10.2); Glucose 106 mg/dl (74-100)
== END ==
PROVIDERS: PCP Emergency Medicine; Visit Provider Obstetrics & Gynecology
DX: O10.919 Unspecified pre-existing hypertension complicating pregnancy, unspecified trimester (principal)
CPT/HCPCS: 36415; 80053; 82043; 82570

== ENCOUNTER → 2022-05-16 14:58 | Outpatient (CLI) | payer OTHER, SELFPAY ==
--- NOTE | 2022-05-16 14:59 | US_ITS ---
FINAL REPORT CLINICAL HISTORY: 20 week anatomy scan; advanced maternal age FINDINGS: There is a single live intrauterine gestation. Presentation is breech. The cervix is closed and measures 3.3 cm. Placenta is posterior and grade 1. Cardiac activity is confirmed at 149 bpm. The fetus is active. Three-vessel cord with satisfactory umbilical cord insertion. Four-chamber heart is noted. brain and ventricles are unremarkable. Chest and diaphragm are unremarkable. ABDOMEN: Both kidneys are unremarkable. Stomach is unremarkable. SPINE: No anomalies identified. Both arms and legs noted. AMNIOTIC FLUID: Appropriate amount. MEASUREMENTS: ULTRASOUND AGE: 20 weeks 4 days. GESTATION AGE: 20 weeks 5 days. ESTIMATED WEIGHT: 357 g GROWTH PERCENTILE: 33% BPD: 4.8 cm consistent with 20 weeks 5 days. OFD: 6.1 cm consistent with 20 weeks 5 days. HC: 17.3 cm consistent with 19 weeks 6 days. AC: 15.3 cm consistent with 20 weeks 4 days. FL: 3.4 cm consistent with 20 weeks 5 days. CEREBELLUM: 2.1 cm consistent with 20 weeks 6 days. HC/AC: 1.13 CI: 79% FL/BPD: 70% FL/AC: 22% IMPRESSION: Single living IUP with an ultrasound age of 20 weeks 5 days. Reviewed, Interpreted and Dictated by Manpreet Dunlap III, MD Transcribed by Jose Urbina Authenticated and [facility]
== END ==
PROVIDERS: PCP Emergency Medicine; Visit Provider Obstetrics & Gynecology
DX: Z34.90 Encounter for supervision of normal pregnancy, unspecified, unspecified trimester (principal); Z3A.20 20 weeks gestation of pregnancy
CPT/HCPCS: 76811

== ENCOUNTER 2022-06-19 23:06 | Observation (INO) | payer OTHER, SELFPAY ==
[2022-06-19 22:10] VITALS: BP 146/96; PULSE 125; RESP 18; TEMP 37.1; O2SAT 99; BMI 34.7
[2022-06-19 22:20] VITALS: BP 138/100
[2022-06-19 22:30] VITALS: BP 133/93
[2022-06-19 22:40] VITALS: BP 140/97
[2022-06-20] VITALS (7 sets, daily range): BP systolic 138–164; BP diastolic 77–101; PULSE 114–123; RESP 16–18; TEMP 36.6–37.2; O2SAT 97
[2022-06-20 00:03] LABS: Coronavirus 19, PCR Not Detected (NotDetected); Influenza A, PCR Not Detected (NotDetected); Influenza B, PCR Not Detected (NotDetected)
[2022-06-20 00:11] LABS: Basophils # 0.1 K/mm3 (0-0.2); Basophils % 0.5 % (0.1-2.0); Eosinophils # 0.4 K/mm3 (0.0-0.4); Eosinophils % 3.2 % (0.1-12.0); Hematocrit 35.9 % (37.0-47.0); Hemoglobin 11.9 g/dL (12.2-16.2); Lymphocytes # 2.8 K/mm3 (0.7-4.5); Lymphocytes % 21.4 % (10-50); Mean Corpuscular HGB Conc 33.2 g/dL (31.8-35.4); Mean Corpuscular Hemoglobin 28.8 pg (27.0-31.2); Mean Corpuscular Volume 86.6 fl (81-99); Mean Platelet Volume 8.9 fl (7.4-10.4); Monocytes # 0.5 K/mm3 (0.1-1.0); Monocytes % 3.8 % (1.7-9.3); Neutrophils # 9.4 K/mm3 (1.8-7.8); Neutrophils % 71.1 % (37.0-80.0); Platelet Count 338 K/mm3 (142-424); Red Blood Count 4.15 M/mm3 (4.20-5.40); Red Cell Distribution Width 13.8 % (11.5-17.5); White Blood Count 13.3 K/mm3 (4.8-10.8)
[2022-06-20 00:13] LABS: Alanine Aminotransferase 19 U/L (12-78); Albumin Level 3.8 g/dl (3.5-5.0); Albumin/Globulin Ratio 1.1 (1.1-1.8); Alkaline Phosphatase 91 U/L (38-126); Anion Gap 15.7 mEq/L (5-15); Aspartate Amino Transferase 23 U/L (14-36); Blood Urea Nitrogen 6 mg/dl (7-17); Calcium 9.1 mg/dl (8.4-10.2); Carbon Dioxide 23 mmol/L (22.0-30.0); Chloride 102 mmol/L (98-107); Creatinine Clearance Estimated 198 mL/min (50-200); Estimated Glomerular Filt Rate 112 ml/min (>60); GFR (African American) 136 ML/MIN (>60); Globulin 3.4 g/dL (1.3-3.2); Glucose 102 mg/dl (74-100); Potassium 3.7 mmoL/L (3.5-5.1); Sodium 137 mmol/L (136-145); Total Protein,Serum 7.2 g/dl (6.3-8.2)
[2022-06-20 00:14] LABS: Bilirubin,Total < 0.1 mg/dl (0.2-1.3)
[2022-06-20 00:47] LABS: Microscopic, Urine URINE MICROSCOPIC (MICROSCOPIC)
[2022-06-20 00:48] LABS: Appearance,Urine CLEAR (Clear); Bilirubin,Urine Negative (Negative); Blood, Urine Negative (Negative); Color,Urine YELLOW (Yellow); Glucose,Urine (UA) Negative (Negative); Ketones,Urine 1+ (Negative); Leukocyte Esterase,Urine Negative (Negative); Nitrate,Urine Negative (Negative); PH,Urine 6.5 (5.0-8.5); Protein,Urine Negative (Negative); Specific Gravity, Urine >= 1.030 (1.005-1.030); Urobilinogen,Urine 0.2 EU/dl (0.2)
[2022-06-20 00:59] LABS: Bacteria,Urine 1+ /lpf; Mucus,Urine 1+ /lpf
[2022-06-20 01:28] LABS: Amphetamine/Metha Screen,Urine Negative ng/ml (<1000)
[2022-06-20 01:29] LABS: Barbiturates Screen,Urine Negative ng/ml (<200)
[2022-06-20 01:30] LABS: Benzodiazepines Screen,Urine Negative ng/ml (<200)
[2022-06-20 01:31] LABS: Cannabinoid Screen,Urine Negative ng/ml (<50); Cocaine Screen,Urine Negative ng/ml (<300)
[2022-06-20 01:32] LABS: Methadone Screen,Urine Negative ng/ml (<300)
[2022-06-20 01:35] LABS: Opiate Screen,Urine Negative ng/ml (<300)
[2022-06-20 01:36] LABS: Phencyclidine Screen,Urine Negative ng/ml (<25)
--- NOTE | 2022-06-20 09:15 | EXP.HPDC ---
General Admission date:: 06/19/22 Discharge date: 06/20/22 *Admission Date: 06/19/22 *Chief complaint: Nausea, vomiting, elevated blood pressure *History of present illness: Mrs. Erendira Ahmadi is a 37 yo at 25w5d who presented to [facility] L&D with complaint of elevated blood pressure at home, nausea and vomiting and not feeling well. She has history of chronic hypertension. She is currently taking Labetalol 200 mg at 0630, 300 mg at 1430 and 200 mg at 2230. However, because of the nausea and vomiting she does not think she kept the 1430 dose down. She also complains of feeling very dehydrated secondary to vomiting. She is taking a baby Aspirin 81 mg daily. She has had intermitttent nausea and vomiting throughout the . Reports good movement. No pelvic pain or vaginal bleeding. [facility] Medical History (Updated 06/20/22 @ 09:28 by Arcelia Fajardo DO) Nausea and vomiting No significant past medical history Social History Smoking Status: Never smoker alcohol intake: never substance use type: denies use current occupational status: employed Travel in the last 8 weeks: None household members: family housing: house caffeine: Yes Review of Systems Review of Systems Review of systems:: pertinent systems reviewed and negative unless documented below Constitutional Constitutional: Reports headache(s) ENT Ears, Nose, Mouth, and Throat: Reports headache(s) *Gastrointestinal Gastrointestinal: Reports nausea and Reports vomiting *Neurologic Neurologic: Reports headache(s) Exam Data for Last 24 hours Vital signs and Labs for Last 24 Hours: Temp Pulse Resp BP Pulse Ox 98.9 F 115 H 17 152/88 H 99 06/20/22 06:29 06/20/22 06:44 06/20/22 06:29 06/20/22 06:44 06/19/22 22:10 Laboratory Results - last 24 hr 06/19/22 23:55: WBC 13.3 H, RBC 4.15 L, Hgb 11.9 L, Hct 35.9 L, MCV 86.6, MCH 28.8, MCHC 33.2, RDW 13.8, Plt Count 338, MPV 8.9, Neut % (Auto) 71.1, Lymph % (Auto) 21.4, [place] % (Auto) 3.8, Eos % (Auto) 3.2, Baso % (Auto) 0.5, Neut # (Auto) 9.4 H, Lymph # (Auto) 2.8, [place] # (Auto) 0.5, Eos # (Auto) 0.4, Baso # (Auto) 0.1 06/19/22 23:55: Sodium 137, Potassium 3.7, Chloride 102, Carbon Dioxide 23, Anion Gap 15.7 H, BUN 6 L, Creatinine 0.60, Estimated Creat Clear 198, Estimated GFR 112, Est GFR ( Amer) 136, Glucose 102 H, Calcium 9.1, Total Bilirubin < 0.1 L, AST 23, ALT 19, Alkaline Phosphatase 91, Total Protein 7.2, Albumin 3.8, Globulin 3.4 H, Albumin/Globulin Ratio 1.1 06/19/22 23:55: SARS-CoV-2 (PCR) Not detected, Influenza A Untype (PCR) Not detected, Influenza Type B (PCR) Not detected 06/20/22 00:00: Urine Color Yellow, Urine Appearance Clear, Urine pH 6.5, Ur Specific Bledsoe >= 1.030, Urine Protein Negative, Urine Glucose (UA) Negative, Urine Ketones 1+, Urine Blood Negative, Urine Nitrate Negative, Urine Bilirubin Negative, Urine Urobilinogen 0.2, Ur Leukocyte Esterase Negative, Urine RBC 3-5, Urine WBC 3-5, Ur Squamous Epith Cells 3-5, Urine Bacteria 1+, Urine Mucus 1+ 06/20/22 00:00: Urine Opiates Screen Negative, Urine Methadone Screen Negative, Ur Barbituates Screen Negative, Ur Phencyclidine Scrn Negative, Ur Amphetamines Screen Negative, U Benzodiazepines Scrn Negative, Urine Cocaine Screen Negative, U Marijuana (THC) Screen Negative I & O for Last 24 hours: Intake & Output 06/17/22 06/18/22 06/19/22 06/20/22 23:59 23:59 23:59 23:59 Weight 215 lb Constitutional Constitutional: no acute distress and average body habitus *Routine HEENT Exam Head: Present normocephalic Eye: Absent conjunctivae pink ENT: Present mucous membranes moist *Routine Respiratory Exam Respiratory: Present CTA bilaterally and normal respiratory effort *Routine Cardiovascular Exam Cardiovascular: Present RRR *Routine Abdominal Exam Abdominal: Present soft (Gravid); Absent tenderness *Routine Rectal Exam Rectal:: deferred *Routine Genitalia Ex
== END 2022-06-20 10:26 | disposition home or self-care (01) ==
LOC: OBOUT 23:10 → OB 23:10
PROVIDERS: Admitting Provider Obstetrics & Gynecology; PCP Obstetrics & Gynecology; Visit Provider Obstetrics & Gynecology
DX: O10.912 Unspecified pre-existing hypertension complicating pregnancy, second trimester (principal); Z3A.25 25 weeks gestation of pregnancy; R11.2 Nausea with vomiting, unspecified; F41.9 Anxiety disorder, unspecified; F32.A Depression, unspecified; G43.909 Migraine, unspecified, not intractable, without status migrainosus
CPT/HCPCS: 59025; 80053; 80305; 81001; 85025; 96360; 96367; C9803; G0378; J2405; U0003; U0005

== ENCOUNTER → 2022-07-03 08:13 | Outpatient (CLI) | payer OTHER, SELFPAY ==
[2022-07-03 08:37] LABS: MANUAL DIFFERENTIAL MANUAL DIFFERENTIAL (MANUAL DIFF)
[2022-07-03 08:42] LABS: Basophils # 0.1 K/mm3 (0-0.2); Basophils % 0.5 % (0.1-2.0); Eosinophils # 0.4 K/mm3 (0.0-0.4); Eosinophils % 3.9 % (0.1-12.0); Hematocrit 32.2 % (37.0-47.0); Hemoglobin 10.8 g/dL (12.2-16.2); Lymphocytes # 2.3 K/mm3 (0.7-4.5); Lymphocytes % 23.8 % (10-50); Mean Corpuscular HGB Conc 33.4 g/dL (31.8-35.4); Mean Corpuscular Hemoglobin 28.8 pg (27.0-31.2); Mean Corpuscular Volume 86.3 fl (81-99); Mean Platelet Volume 9.6 fl (7.4-10.4); Monocytes # 0.4 K/mm3 (0.1-1.0); Monocytes % 3.8 % (1.7-9.3); Neutrophils # 6.5 K/mm3 (1.8-7.8); Neutrophils % 67.9 % (37.0-80.0); Platelet Count 313 K/mm3 (142-424); Red Blood Count 3.73 M/mm3 (4.20-5.40); Red Cell Distribution Width 13.4 % (11.5-17.5); White Blood Count 9.6 K/mm3 (4.8-10.8)
[2022-07-03 10:06] LABS: Eosinophils % 1 % (0-3); Lymphocytes % 17 % (10-50); Monocytes % 2 % (2-9); Neutrophils % 80 % (42-76); Platelet Estimate Normal; RBC Morphology Normal; Total Cells Counted 100
== END ==
PROVIDERS: PCP Emergency Medicine; Visit Provider Obstetrics & Gynecology
DX: Z34.90 Encounter for supervision of normal pregnancy, unspecified, unspecified trimester (principal)
CPT/HCPCS: 36415; 85007; 85014; 85018; 85048; 85049

== ENCOUNTER 2022-07-07 14:20 | Outpatient (CLI) | payer OTHER, SELFPAY ==
--- NOTE | 2022-07-07 14:29 | US_ITS ---
FINAL REPORT CLINICAL HISTORY: Large for gestational age FINDINGS: ULTRASOUND PELVIS/2ND TRIMESTER TECHNIQUE: Sonographic images of the gravid uterus were obtained. FINDINGS: Single intrauterine is present. Cardiac activity is confirmed. heart rate is 156. No anomalies are seen. Appropriate amount of amniotic fluid is present. Placenta is posterior, grade 1. Presentation is cephalic. Growth parameters are as follows: BPD: 7.14 cm corresponding to 28 weeks 5 days Head circumference: 25.89 cm corresponding to 28 weeks 2 days Abdominal circumference: 24.28 cm corresponding to 28 weeks 4 days Femur length: 0.04 cm corresponding to 27 weeks 1 days heart rate: 156 bpm weight: 1162 g Estimated gestational age: 28 weeks 2 days IMPRESSION: Single living intrauterine with estimated gestational age of 28 weeks 2 days. Reviewed, Interpreted and Dictated by Manpreet Dunlap III, MD Transcribed by Anne Marie Ochoa Authenticated and [facility]
[2022-07-07 15:58] VITALS: BP 141/89; PULSE 63; RESP 17; TEMP 36.8; O2SAT 100; BMI 35.0
[2022-07-07 16:08] VITALS: BMI 35.0
[2022-07-07 16:15] LABS: Microscopic, Urine URINE MICROSCOPIC (MICROSCOPIC)
[2022-07-07 16:28] LABS: Appearance,Urine CLEAR (Clear); Bilirubin,Urine Negative (Negative); Blood, Urine Negative (Negative); Color,Urine YELLOW (Yellow); Glucose,Urine (UA) Negative (Negative); Ketones,Urine Negative (Negative); Leukocyte Esterase,Urine TRACE (Negative); Nitrate,Urine Negative (Negative); Protein,Urine Negative (Negative); Specific Gravity, Urine <= 1.005 (1.005-1.030); Urobilinogen,Urine 0.2 EU/dl (0.2)
[2022-07-07 16:41] LABS: Amphetamine/Metha Screen,Urine Negative ng/ml (<1000)
[2022-07-07 16:42] LABS: Barbiturates Screen,Urine Negative ng/ml (<200)
[2022-07-07 16:43] LABS: Benzodiazepines Screen,Urine Negative ng/ml (<200); Cannabinoid Screen,Urine Negative ng/ml (<50)
[2022-07-07 16:44] LABS: Cocaine Screen,Urine Negative ng/ml (<300)
[2022-07-07 16:45] LABS: Methadone Screen,Urine Negative ng/ml (<300); Opiate Screen,Urine Negative ng/ml (<300)
[2022-07-07 16:46] LABS: Phencyclidine Screen,Urine Negative ng/ml (<25)
[2022-07-07 17:24] LABS: WBC,Urine Occasional #/hpf (0-3)
== END 2022-07-07 17:20 | disposition home or self-care (01) ==
LOC: RAD 14:21 → OB 15:27
PROVIDERS: Nurse Practitioner Obstetrics & Gynecology; PCP Emergency Medicine; Visit Provider Obstetrics & Gynecology
DX: O36.60X0 Maternal care for excessive fetal growth, unspecified trimester, not applicable or unspecified (principal)
CPT/HCPCS: 59025; 76816; 80305; 81001; G0463

== ENCOUNTER 2022-07-09 10:14 | Outpatient (CLI) | payer OTHER, SELFPAY ==
[2022-07-09 11:00] VITALS: BP 158/110; PULSE 112; RESP 16; TEMP 36.8; O2SAT 96; BMI 35.3
[2022-07-09 11:50] VITALS: BP 138/80
== END 2022-07-09 11:58 | disposition home or self-care (01) ==
LOC: OBOUT 10:16 → OB 10:20
PROVIDERS: PCP Emergency Medicine; Visit Provider Obstetrics & Gynecology
DX: O21.0 Mild hyperemesis gravidarum (principal); Z3A.28 28 weeks gestation of pregnancy; R19.7 Diarrhea, unspecified
CPT/HCPCS: 59025; 96365; 96367; G0463; J2405

== ENCOUNTER 2022-07-17 11:08 | Outpatient (CLI) | payer OTHER, SELFPAY ==
[2022-07-17 12:30] VITALS: BP 118/75; PULSE 95; RESP 18; TEMP 36.6; O2SAT 98; BMI 36.3
== END 2022-07-17 13:25 | disposition home or self-care (01) ==
LOC: OBOUT 11:10 → OB 11:12
PROVIDERS: PCP Emergency Medicine; Visit Provider Obstetrics & Gynecology
DX: O26.893 Other specified pregnancy related conditions, third trimester (principal); Z3A.29 29 weeks gestation of pregnancy; R11.0 Nausea
CPT/HCPCS: 96365; 96367; G0463

== ENCOUNTER → 2022-07-17 13:33 | Outpatient (CLI) | payer OTHER, SELFPAY ==
[2022-07-17 14:22] LABS: Glucose,Fasting 100 mg/dl (74-100)
[2022-07-17 15:20] LABS: Glucose 1 Hour 162 mg/dL (74-100)
== END ==
PROVIDERS: PCP Emergency Medicine; Visit Provider Obstetrics & Gynecology
DX: O99.810 Abnormal glucose complicating pregnancy; Z3A.29 29 weeks gestation of pregnancy
CPT/HCPCS: 36415; 82951

== ENCOUNTER 2022-07-23 15:22 | Outpatient (CLI) | payer OTHER, SELFPAY ==
[2022-07-23 15:50] VITALS: BP 163/107; PULSE 115; RESP 20; TEMP 37; O2SAT 98; BMI 36.1
[2022-07-23 16:55] VITALS: BP 174/116
[2022-07-23 17:19] LABS: Influenza A, PCR Not Detected (NotDetected); Influenza B, PCR Not Detected (NotDetected)
[2022-07-23 17:19] LABS: Microscopic, Urine URINE MICROSCOPIC (MICROSCOPIC)
[2022-07-23 17:29] LABS: Appearance,Urine CLEAR (Clear); Bilirubin,Urine Negative (Negative); Blood, Urine Negative (Negative); Color,Urine YELLOW (Yellow); Glucose,Urine (UA) TRACE (Negative); Ketones,Urine Negative (Negative); Leukocyte Esterase,Urine 1+ (Negative); Nitrate,Urine Negative (Negative); PH,Urine 6.5 (5.0-8.5); Protein,Urine Negative (Negative); Urobilinogen,Urine 0.2 EU/dl (0.2)
[2022-07-23 17:30] VITALS: BP 140/99
[2022-07-23 17:41] LABS: Barbiturates Screen,Urine Negative ng/ml (<200)
[2022-07-23 17:41] LABS: Basophils # 0.1 K/mm3 (0-0.2); Basophils % 0.5 % (0.1-2.0); Eosinophils # 0.3 K/mm3 (0.0-0.4); Eosinophils % 3.5 % (0.1-12.0); Hematocrit 32.6 % (37.0-47.0); Hemoglobin 10.7 g/dL (12.2-16.2); Lymphocytes # 2.1 K/mm3 (0.7-4.5); Mean Corpuscular HGB Conc 32.7 g/dL (31.8-35.4); Mean Corpuscular Hemoglobin 28.2 pg (27.0-31.2); Mean Corpuscular Volume 86.2 fl (81-99); Mean Platelet Volume 8.9 fl (7.4-10.4); Monocytes # 0.4 K/mm3 (0.1-1.0); Monocytes % 4.5 % (1.7-9.3); Neutrophils # 6.1 K/mm3 (1.8-7.8); Neutrophils % 68.5 % (37.0-80.0); Platelet Count 295 K/mm3 (142-424); Red Blood Count 3.79 M/mm3 (4.20-5.40); Red Cell Distribution Width 14.1 % (11.5-17.5)
[2022-07-23 17:42] LABS: Benzodiazepines Screen,Urine Negative ng/ml (<200)
[2022-07-23 17:43] LABS: Amphetamine/Metha Screen,Urine Negative ng/ml (<1000); Methadone Screen,Urine Negative ng/ml (<300)
[2022-07-23 17:44] LABS: Cannabinoid Screen,Urine Negative ng/ml (<50); Cocaine Screen,Urine Negative ng/ml (<300)
[2022-07-23 17:46] LABS: Phencyclidine Screen,Urine Negative ng/ml (<25)
[2022-07-23 17:50] LABS: Creatinine,Urine Random 41 mg/dL (Not Estab.)
[2022-07-23 17:51] LABS: Bacteria,Urine 1+ /lpf; Yeast,Urine 1+ /lpf
[2022-07-23 17:52] LABS: Microalbumin < 6.000 mg/L (0-16.7)
[2022-07-23 17:53] LABS: Opiate Screen,Urine Negative ng/ml (<300)
[2022-07-23 18:01] LABS: Alanine Aminotransferase 15 U/L (12-78); Aspartate Amino Transferase 22 U/L (14-36); Blood Urea Nitrogen 5 mg/dl (7-17); Calcium 9.1 mg/dl (8.4-10.2); Carbon Dioxide 25 mmol/L (22.0-30.0); Chloride 105 mmol/L (98-107); Creatinine Clearance Estimated 247 mL/min (50-200); Estimated Glomerular Filt Rate 139 ml/min (>60); GFR (African American) 168 ML/MIN (>60); Glucose 102 mg/dl (74-100); Magnesium 1.6 mg/dl (1.6-2.3); Sodium 137 mmol/L (136-145); Uric Acid 3.9 mg/dl (2.5-6.2)
[2022-07-23 18:28] LABS: Coronavirus 19, PCR Detected (NotDetected)
[2022-07-23 18:37] LABS: Fibrinogen 425 mg/dL (229.9-363.5); INR 0.87 (0.9-1.1); Prothrombin Time 9.5 seconds (10.1-12.5)
[2022-07-23 18:41] LABS: Activated Partial Thrombo Time 18.1 seconds (22.8-30.6)
== END 2022-07-23 18:28 | disposition home or self-care (01) ==
LOC: OBOUT 15:23 → OB 15:25
PROVIDERS: PCP Emergency Medicine; Visit Provider Obstetrics & Gynecology
DX: O26.893 Other specified pregnancy related conditions, third trimester (principal); Z3A.30 30 weeks gestation of pregnancy
CPT/HCPCS: 80048; 80305; 81001; 82043; 82570; 83735; 84450; 84460; 84550; 85025; 85378; 85384; 85610; 85730; 87086; C9803; U0003; U0005

== ENCOUNTER 2022-07-31 16:11 | Outpatient (CLI) | payer OTHER, SELFPAY ==
[2022-07-31 16:31] VITALS: BMI 36.3
--- NOTE | 2022-07-31 16:32 | US_ITS ---
PROCEDURE INFORMATION: Exam: US Biophysical Profile Without Non-Stress Test Exam date and time: 07/31/2022 5:24 PM Age: 37 years old Clinical indication: Other: Non reactive nst in office today; ; Patient HX: Gestational diabetic elevated BP; Additional info: Non reacctive nst in office TECHNIQUE: Imaging protocol: US biophysical profile without non-stress testing. COMPARISON: US OB /MATERNAL DETAIL 05/16/2022 3:01 PM FINDINGS: heart rate: Embryonic/ cardiac activity is identified, at a rate of 147 bpm. presentation: There is a single live intrauterine gestation in cephalic presentation. Good movement and tone are visualized. Placenta: The placenta is fundal and grade 2. The cervix is within range of normal measuring 3.4 cm. Amniotic fluid index: ROBERT measures 22.9 cm. BIOPHYSICAL PROFILE: breathing movement (BPP): Two out of 2. body movement (BPP): 2 out of 2. tone (BPP): 2 out of 2. Amniotic fluid (BPP): 2out of 2. BIOMETRY: Gestational age (AUA): Estimated gestational age based on LMP is 30 weeks and 4 days. IMPRESSION: 1. Biophysical profile score is 8 out of 8. 2. ROBERT equals 22.9 cm.
[2022-07-31 16:44] VITALS: BP 114/75; PULSE 100; RESP 20; TEMP 36.8; O2SAT 99; BMI 36.1
== END 2022-07-31 18:36 | disposition home or self-care (01) ==
LOC: OBOUT 16:14 → OB 16:15
PROVIDERS: PCP Emergency Medicine; Visit Provider Obstetrics & Gynecology
DX: O26.893 Other specified pregnancy related conditions, third trimester (principal); Z3A.31 31 weeks gestation of pregnancy
CPT/HCPCS: 59025; 76819; 96365; G0463

== ENCOUNTER 2022-08-05 15:08 | Outpatient (CLI) | payer OTHER, SELFPAY ==
[2022-08-05 15:36] VITALS: BMI 35.3
--- NOTE | 2022-08-05 15:37 | US_ITS ---
PROCEDURE INFORMATION: Exam: US Biophysical Profile Without Non-Stress Test Exam date and time: 08/05/2022 4:31 PM Age: 37 years old Clinical indication: Abnormal findings; Abnormal radiological screening; Third trimester (=28 weeks 0 days); ; Patient HX: Non reactive stress in drs office--- diabetic -- hypertension -- on BP meds; Additional info: Non-reactive nst TECHNIQUE: Imaging protocol: US biophysical profile without non-stress testing. COMPARISON: US OB BIOPHYSICAL PROFILE 07/31/2022 5:24 PM FINDINGS: heart rate: 147 bpm presentation: presentation there is a single live intrauterine gestation in cephalic presentation Amniotic fluid index: 15.02 cm the placenta is posterior. BIOPHYSICAL PROFILE: breathing movement (BPP): 2 out of 2. body movement (BPP): 2 out of 2. tone (BPP): 2 out of 2. Amniotic fluid (BPP): 2 out of 2. BIOMETRY: Gestational age (AUA): Estimated gestational age by LMP 32 weeks 2 days. MATERNAL ANATOMY: Cervix: Cervical length: 2.6 cm IMPRESSION: 1. Biophysical profile score is 8/8. 2. Amniotic fluid index equals 15.02 cm.
[2022-08-05 15:45] VITALS: BP 140/120; PULSE 120; RESP 18; TEMP 36.9; O2SAT 100; BMI 35.3
[2022-08-05 16:00] VITALS: BP 170/110
[2022-08-05 16:20] VITALS: BP 142/92
[2022-08-05 16:30] VITALS: BP 142/92
[2022-08-05 17:08] LABS: Microalbumin/Creatinine Ratio 20.9
[2022-08-05 17:14] LABS: Creatinine,Urine Random 144 mg/dL (Not Estab.)
[2022-08-05 17:22] LABS: Basophils % 0.2 % (0.1-2.0); Eosinophils # 0.2 K/mm3 (0.0-0.4); Eosinophils % 2.3 % (0.1-12.0); Hematocrit 29.2 % (37.0-47.0); Lymphocytes # 1.9 K/mm3 (0.7-4.5); Lymphocytes % 20.5 % (10-50); Mean Corpuscular HGB Conc 34.4 g/dL (31.8-35.4); Mean Corpuscular Hemoglobin 28.2 pg (27.0-31.2); Mean Corpuscular Volume 82.2 fl (81-99); Mean Platelet Volume 9.8 fl (7.4-10.4); Monocytes # 0.3 K/mm3 (0.1-1.0); Monocytes % 3.2 % (1.7-9.3); Neutrophils # 6.8 K/mm3 (1.8-7.8); Neutrophils % 73.8 % (37.0-80.0); Platelet Count 259 K/mm3 (142-424); Red Blood Count 3.55 M/mm3 (4.20-5.40); Red Cell Distribution Width 14.5 % (11.5-17.5); White Blood Count 9.2 K/mm3 (4.8-10.8)
[2022-08-05 17:34] LABS: D-Dimer 1.21 ug/mL (0.0-0.5)
[2022-08-05 17:40] VITALS: BP 111/69
[2022-08-05 17:41] LABS: Alanine Aminotransferase 15 U/L (12-78); Anion Gap 14.9 mEq/L (5-15); Aspartate Amino Transferase 22 U/L (14-36); Blood Urea Nitrogen 7 mg/dl (7-17); Carbon Dioxide 20 mmol/L (22.0-30.0); Chloride 105 mmol/L (98-107); Creatinine Clearance Estimated 173 mL/min (50-200); Estimated Glomerular Filt Rate 94 ml/min (>60); GFR (African American) 114 ML/MIN (>60); Glucose 157 mg/dl (74-100); Potassium 3.9 mmoL/L (3.5-5.1); Sodium 136 mmol/L (136-145); Uric Acid 4.6 mg/dl (2.5-6.2)
[2022-08-05 18:17] LABS: Activated Partial Thrombo Time 21.6 seconds (22.8-30.6); INR 0.95 (0.9-1.1); Prothrombin Time 10.3 seconds (10.1-12.5)
[2022-08-05 18:56] LABS: Fibrinogen 423 mg/dL (229.9-363.5)
== END 2022-08-05 18:05 | disposition home or self-care (01) ==
LOC: OBOUT 15:10 → OB 15:11
PROVIDERS: PCP Emergency Medicine; Visit Provider Obstetrics & Gynecology
DX: O26.893 Other specified pregnancy related conditions, third trimester (principal); Z3A.32 32 weeks gestation of pregnancy
CPT/HCPCS: 36415; 59025; 76819; 80048; 82043; 82570; 84450; 84460; 84550; 85025; 85378; 85384; 85610; 85730; 96360; 96372; G0463

== ENCOUNTER → 2022-08-06 16:20 | Outpatient (CLI) | payer OTHER, SELFPAY ==
[2022-08-06 19:29] LABS: Total Volume,Urine 1450 mL (600-1600)
[2022-08-06 19:38] LABS: Total Protein 24 Hour,Urine 131 mg/24 hr (40-90)
== END ==
PROVIDERS: PCP Emergency Medicine; Visit Provider Obstetrics & Gynecology
DX: Z34.90 Encounter for supervision of normal pregnancy, unspecified, unspecified trimester (principal); Z3A.32 32 weeks gestation of pregnancy
CPT/HCPCS: 84155

== ENCOUNTER 2022-08-08 11:31 | Outpatient (CLI) | payer OTHER, SELFPAY ==
[2022-08-08 12:41] VITALS: BP 111/69; PULSE 92; RESP 18; TEMP 36.6; O2SAT 98; BMI 35.5
== END 2022-08-08 13:30 | disposition home or self-care (01) ==
LOC: OBOUT 11:32 → OB 11:33
PROVIDERS: PCP Emergency Medicine; Visit Provider Nurse Practitioner Obstetrics & Gynecology
DX: O36.8130 Decreased fetal movements, third trimester, not applicable or unspecified (principal); Z3A.32 32 weeks gestation of pregnancy
CPT/HCPCS: 59025; 96365; G0463; J2405

== ENCOUNTER → 2022-08-12 09:49 | Outpatient (CLI) | payer OTHER, SELFPAY ==
--- NOTE | 2022-08-12 09:53 | US_ITS ---
FINAL REPORT CLINICAL HISTORY: non reactive nst FINDINGS: There is a single live intrauterine gestation. Presentation is cephalic. The cervix is closed and measures 3.0 cm. Placenta is posterior, grade 2. Cardiac activity is confirmed at 149 bpm. Fetus is active and practice breathing is noted. ROBERT: 14.32 cm GESTATION AGE: 33 weeks 2 days. BREATHIN/2 MOVEMENT: 2/2 TONE: 2/2 FLUID VOLUME: 2/2 BPP SCORE: 88 IMPRESSION: Single living IUP with an gestational age of 33 weeks 2 days. BPP SCORE: 8 ROBERT: 14.32 cm Reviewed, Interpreted and Dictated by Mago Garcia MD Transcribed by Mariella Segovia Authenticated and [facility]
== END ==
PROVIDERS: PCP Emergency Medicine; Visit Provider Obstetrics & Gynecology
DX: O28.8 Other abnormal findings on antenatal screening of mother (principal)
CPT/HCPCS: 76819

== ENCOUNTER → 2022-08-15 08:30 | Outpatient (CLI) | payer OTHER, SELFPAY ==
--- NOTE | 2022-08-15 08:44 | US_ITS ---
FINAL REPORT CLINICAL HISTORY: lga FINDINGS: There is a single live intrauterine gestation. Presentation is cephalic. Placenta is grade 2. Cardiac activity is confirmed at 150 bpm. Fetus is active. The amniotic fluid index is 11.52 cm. The visualized anatomy is grossly unremarkable. GESTATION AGE: 33 weeks 5 days. BREATHIN MOVEMENT: 2 TONE: 2 FLUID VOLUME: 2 BPP SCORE: 8 IMPRESSION: Single living IUP with an ultrasound age of 33 weeks 5 days. BPP SCORE: 8/8 Reviewed, Interpreted and Dictated by Sae Sharp MD Transcribed by Leslie Prasad Authenticated and [facility]
== END ==
PROVIDERS: PCP Emergency Medicine; Visit Provider Obstetrics & Gynecology
DX: O36.60X0 Maternal care for excessive fetal growth, unspecified trimester, not applicable or unspecified (principal)
CPT/HCPCS: 76819

== ENCOUNTER 2022-08-22 12:01 | Outpatient (CLI) | payer OTHER, SELFPAY ==
[2022-08-22 12:15] VITALS: BMI 36.8
--- NOTE | 2022-08-22 12:21 | US_ITS ---
FINAL REPORT CLINICAL HISTORY: non reactive nst FINDINGS: TRANSABDOMINAL ULTRASOUND There is a single live intrauterine gestation. Presentation is cephalic. The cervix is closed and measures 3.9 cm. Placenta is posterior, grade 2. Cardiac activity is confirmed at 160 bpm. Fetus is active and practice breathing is noted. ROBERT: 10.98 cm, borderline. GESTATION AGE: 34 weeks 5 days. BREATHIN/2 MOVEMENT: 2/2 TONE: 2/2 FLUID VOLUME: 2/2 BPP SCORE: 8/8 IMPRESSION: Single living IUP with a gestational age of 34 weeks 5 days. BPP SCORE: 8/8 ROBERT: 10.98 cm, borderline. Reviewed, Interpreted and Dictated by Manpreet Dunlap III, MD Transcribed by Mariella Segovia Authenticated and [facility]
[2022-08-22 12:33] VITALS: BP 147/96; PULSE 95; RESP 18; TEMP 36.7; O2SAT 98; BMI 36.6
== END 2022-08-22 13:56 | disposition home or self-care (01) ==
LOC: OB 16:52 → OBOUT 08-25 14:49
PROVIDERS: PCP Emergency Medicine; Visit Provider Obstetrics & Gynecology
DX: O26.893 Other specified pregnancy related conditions, third trimester (principal); Z3A.34 34 weeks gestation of pregnancy
CPT/HCPCS: 59025; 76819; G0378; G0463

== ENCOUNTER → 2022-08-28 11:30 | Outpatient (CLI) | payer OTHER, SELFPAY | PROVIDERS: PCP Obstetrics & Gynecology; Visit Provider Obstetrics & Gynecology | DX: Z34.90 Encounter for supervision of normal pregnancy, unspecified, unspecified trimester (principal) | CPT/HCPCS: 86403 ==

== ENCOUNTER 2022-09-09 04:49 | Inpatient (IN) | payer OTHER, SELFPAY ==
[2022-09-09] VITALS (18 sets, daily range): BP systolic 96–229; BP diastolic 53–121; PULSE 91–129; RESP 18–20; TEMP 36.4–36.9; O2SAT 99; BMI 37.5; BMI 38.4
[2022-09-09 05:52] LABS: POC Glucose,Bedside 100 (70-110)
[2022-09-09 06:18] LABS: Microscopic, Urine URINE MICROSCOPIC (MICROSCOPIC)
[2022-09-09 06:18] LABS: Coronavirus 19, PCR Not Detected (NotDetected); Influenza A, PCR Not Detected (NotDetected); Influenza B, PCR Not Detected (NotDetected)
[2022-09-09 06:31] LABS: Appearance,Urine CLEAR (Clear); Bilirubin,Urine Negative (Negative); Blood, Urine Negative (Negative); Color,Urine YELLOW (Yellow); Glucose,Urine (UA) Negative (Negative); Ketones,Urine Negative (Negative); Leukocyte Esterase,Urine TRACE (Negative); Nitrate,Urine Negative (Negative); Protein,Urine Negative (Negative); Specific Gravity, Urine <= 1.005 (1.005-1.030); Urobilinogen,Urine 0.2 EU/dl (0.2)
[2022-09-09 06:35] LABS: Basophils # 0.1 K/mm3 (0-0.2); Basophils % 0.6 % (0.1-2.0); Eosinophils # 0.3 K/mm3 (0.0-0.4); Eosinophils % 3.5 % (0.1-12.0); Hematocrit 30.4 % (37.0-47.0); Hemoglobin 10.1 g/dL (12.2-16.2); Lymphocytes # 2.1 K/mm3 (0.7-4.5); Lymphocytes % 26.2 % (10-50); Mean Corpuscular HGB Conc 33.2 g/dL (31.8-35.4); Mean Corpuscular Hemoglobin 26.6 pg (27.0-31.2); Mean Corpuscular Volume 80.1 fl (81-99); Mean Platelet Volume 9.9 fl (7.4-10.4); Monocytes # 0.3 K/mm3 (0.1-1.0); Monocytes % 3.6 % (1.7-9.3); Neutrophils # 5.3 K/mm3 (1.8-7.8); Neutrophils % 66.1 % (37.0-80.0); Platelet Count 295 K/mm3 (142-424); Red Blood Count 3.79 M/mm3 (4.20-5.40); Red Cell Distribution Width 14.6 % (11.5-17.5); White Blood Count 8.1 K/mm3 (4.8-10.8)
[2022-09-09 06:42] LABS: Barbiturates Screen,Urine Negative ng/ml (<200); Benzodiazepines Screen,Urine Negative ng/ml (<200)
[2022-09-09 06:43] LABS: Amphetamine/Metha Screen,Urine Negative ng/ml (<1000)
[2022-09-09 06:44] LABS: Cannabinoid Screen,Urine Negative ng/ml (<50); Cocaine Screen,Urine Negative ng/ml (<300)
[2022-09-09 06:45] LABS: Methadone Screen,Urine Negative ng/ml (<300)
[2022-09-09 06:46] LABS: Opiate Screen,Urine Negative ng/ml (<300); Phencyclidine Screen,Urine Negative ng/ml (<25)
[2022-09-09 06:52] LABS: Bacteria,Urine Trace /lpf
--- NOTE | 2022-09-09 08:24 | EXP.OB.APHP ---
OB - H&P: HPI Antepartum History of Present Illness Chief complaint: Scheduled induction of labor History of present illness: Mrs Erendira Ahmadi is a 37 yo at 37w2d, by first trimester ultrasound with EDC 09/28/22, who presents to [facility] L&D for scheduled induction of labor secondary to CHTN on medication. She also has GDMA2 and is taking insulin. She is taking Labetalol 200 mg at 0630, 300 mg at 1430 and 300 mg at 2230. [facility] has been managing her blood sugars. She is taking Lantus 28 units in the PM. She reports baby is very active. No leakage of fluid or vaginal bleeding. She has history of migraines and has had headaches during . She was taking mag oxide for headaches with improvement. History of Present Criteria for establishing EDC:: LMP confirmed by 1st trimester US care: good care Ultrasounds: normal mid trimester US Obstetrical complications: gestational diabetes (on insulin) and other (Chronic hypertension) Labs Blood type: A (+) positive Rubella: immune RPR/VDRL: nonreactive GBS status: negative HBsAG: negative PFSH PFS Disclaimer: The information contained in this section may have been updated after the patient was seen, as this information can be updated by other users. Medical History (Updated 09/09/22 @ 08:54 by Arcelia Fajardo DO) 37 weeks gestation of Atopic dermatitis Cervical strain, acute Chronic hypertension affecting Gestational diabetes Lumbar transverse process fracture Maternal obesity affecting , antepartum Nausea and vomiting No significant past medical history Partial thickness burn of back Family History Other No significant family history Social History Smoking Status: Never smoker alcohol intake: never substance use type: denies use current occupational status: unemployed Travel in the last 8 weeks: None household members: family housing: house caffeine: Yes Review of Systems Review of Systems Review of systems:: pertinent systems reviewed and negative unless documented below Meds Home Medications and Allergies Home Medications Medication Instructions Recorded Confirmed Type vits 75-iron 28 mg-folic 1 tab PO DAILY Supplement 02/12/22 09/09/22 History acid 800 mcg-omega-3 oral combo pack (One A Day Women's DHA) aspirin 81 mg tablet,delayed 81 mg PO DAILY HEART HEALTH 03/26/22 09/09/22 History release insulin glargine 100 unit/mL (3 10 unit SQ HS Diabetes 08/20/22 09/09/22 History mL) subcutaneous pen (Lantus Solostar U-100 Insulin) insulin aspart U-100 100 unit/mL 28 unit SQ DAILY Diabetes 08/28/22 09/09/22 History (3 mL) subcutaneous pen labetalol 100 mg tablet 100 mg PO 1430,2100 Hypertension 09/09/22 09/09/22 History labetalol 200 mg tablet 200 mg PO TID Hypertension 09/09/22 09/09/22 History ondansetron 4 mg disintegrating 4 mg PO Q6HP PRN nausea and 09/09/22 09/09/22 History tablet vomiting pantoprazole 40 mg tablet,delayed 40 mg PO DAILY GERD 09/09/22 09/09/22 History release (Protonix) promethazine 25 mg tablet 25 mg PO Q6HP PRN nausea and 09/09/22 09/09/22 History vomiting New Prescriptions to Start Prescriptions: Allergies Allergy/AdvReac Type Severity Reaction Status Date / Time No Known Allergies Allergy Verified 09/01/22 14:08 OB - H&P: Exam Physical Exam Vital signs: Temp Pulse Resp BP Pulse Ox 98.5 F 95 H 18 134/83 99 09/09/22 06:41 09/09/22 06:41 09/09/22 06:41 09/09/22 06:41 09/09/22 06:41 Constitutional no acute distress Routine HEENT Exam Head: Present normocephalic and atraumatic Eye: Absent conjunctivae pink ENT: Present mucous membranes moist and dentition normal Routine Neck Exam Present full ROM Routine Respiratory Exam Present CTA bilaterally and normal respiratory effor
--- NOTE | 2022-09-09 08:31 | P.CONPHA_ITS ---
Pharmacy Intervention Comments: MEDICATION RECONCILIATION COMPLETED ON PATIENT USING EXTERNAL FILL HISTORY FROM PHARMACY AND LIST FROM [facility] OFF[facility]. -KATHY KHOURYD
--- NOTE | 2022-09-09 08:31 | HMH.PHAINT1 ---
Pharmacy Intervention Comments: MEDICATION RECONCILIATION COMPLETED ON PATIENT USING EXTERNAL FILL HISTORY FROM PHARMACY AND LIST FROM [facility]. -KATHY KHOURYD
[2022-09-09 10:11] LABS: Basophils # 0.1 K/mm3 (0-0.2); Basophils % 0.6 % (0.1-2.0); Eosinophils # 0.4 K/mm3 (0.0-0.4); Eosinophils % 4.2 % (0.1-12.0); Hematocrit 31.2 % (37.0-47.0); Hemoglobin 10.7 g/dL (12.2-16.2); Lymphocytes # 2.4 K/mm3 (0.7-4.5); Lymphocytes % 24.1 % (10-50); Mean Corpuscular HGB Conc 34.2 g/dL (31.8-35.4); Mean Corpuscular Hemoglobin 26.5 pg (27.0-31.2); Mean Corpuscular Volume 77.5 fl (81-99); Mean Platelet Volume 9.6 fl (7.4-10.4); Monocytes # 0.3 K/mm3 (0.1-1.0); Monocytes % 3.1 % (1.7-9.3); Neutrophils # 6.6 K/mm3 (1.8-7.8); Platelet Count 295 K/mm3 (142-424); Red Blood Count 4.02 M/mm3 (4.20-5.40); Red Cell Distribution Width 14.6 % (11.5-17.5); White Blood Count 9.8 K/mm3 (4.8-10.8)
[2022-09-09 10:32] LABS: D-Dimer 1.27 ug/mL (0.0-0.5)
[2022-09-09 10:41] LABS: Anion Gap 13.1 mEq/L (5-15); Blood Urea Nitrogen 9 mg/dl (7-17); Calcium 9.3 mg/dl (8.4-10.2); Carbon Dioxide 19 mmol/L (22.0-30.0); Chloride 108 mmol/L (98-107); Creatinine Clearance Estimated 188 mL/min (50-200); Estimated Glomerular Filt Rate 94 ml/min (>60); GFR (African American) 114 ML/MIN (>60); Glucose 105 mg/dl (74-100); Potassium 4.1 mmoL/L (3.5-5.1); Sodium 136 mmol/L (136-145)
[2022-09-09 10:53] LABS: INR 0.89 (0.9-1.1); Prothrombin Time 9.7 seconds (10.1-12.5)
[2022-09-09 10:54] LABS: Activated Partial Thrombo Time 21.7 seconds (22.8-30.6); Fibrinogen 383 mg/dL (229.9-363.5)
[2022-09-09 11:05] LABS: Alanine Aminotransferase 17 U/L (12-78); Aspartate Amino Transferase 25 U/L (14-36); Uric Acid 4.3 mg/dl (2.5-6.2)
--- NOTE | 2022-09-09 11:36 | EXP.ANES.CKL ---
[facility] Disclaimer: The information contained in this section may have been updated after the patient was seen, as this information can be updated by other users. Medical History (Updated 09/09/22 @ 08:54 by Arcelia Fajardo DO) 37 weeks gestation of Atopic dermatitis Cervical strain, acute Chronic hypertension affecting Gestational diabetes Lumbar transverse process fracture Maternal obesity affecting , antepartum Nausea and vomiting No significant past medical history Partial thickness burn of back Family History Other No significant family history Social History Smoking Status: Never smoker alcohol intake: never substance use type: denies use current occupational status: unemployed Travel in the last 8 weeks: None household members: family housing: house caffeine: Yes [facility] Anesthesia Checklist Patient Identification Patient Identification: Arm Band and Family Structural Data Admitted From: Direct Admit Planned Operative Procedure/s: Elpidural for Labor Verified Documents: Surgical Consent and History and Physical NPO Status Verified Time NPO: 00:00 Additional verifications Patient : Yes Anesthesia Reactions: No Hx Blood Transfusions: No Blood Transfusion Reaction: No Cephalosporin Allergy: No Previous Colonoscopy: No Airway Assessment C-Spine Mobility Assessed: Yes TMJ Mobility Assessed: Yes Dentition: Good Dentition Neurological Assessment Level of Consciousness: Awake, Alert, Appropriate and Follows Commands Hx Seizures: No Numbness or tingling in extremities: No Anesthesia Plan Anesthesia Risk discussed: Yes ASA Class: II Anesthesia Type: Epidural Preoperative Comments Pre-Operative Comments: Gestational Hypertension
--- NOTE | 2022-09-09 11:38 | PC.NURSE ---
CALLED DR. ALMODOVAR'S OFFICE TO SPEAK TO HER; AWAITING RETURN CALL.
[2022-09-09 11:39] LABS: Magnesium 1.8 mg/dl (1.6-2.3)
--- NOTE | 2022-09-09 11:47 | PC.NURSE ---
SPOKE WITH DR. ALMODOVAR ABOUT PT'S BP. STATED TO GIVE PROCARDIA 10MG P0 X1 NOW AND RECHECK BP IN 20MIN.
[2022-09-09 15:08] LABS: POC Glucose,Bedside 100 (70-110)
--- NOTE | 2022-09-09 15:40 | EXP.LABOR.NO ---
Labor Note Subjective: Date: 09/09/22 Time: 15:40 irregular contractions and nausea Objective: Cervical Dilation:: 6 Effacement:: 70% Station: -1 Membranes: spontaneously ruptured Comment:: light meconium Fetus: Monitoring?: Yes monitoring type:: Internal and External Assessment: Labor progressing?: Yes All Active Problems (Updated 09/09/22 @ 08:54 by Arcelia Fajardo DO) 37 weeks gestation of (Acute) Maternal obesity affecting , antepartum (Acute) Chronic hypertension affecting (Acute) Atopic dermatitis (Acute) Gestational diabetes (Acute) Nausea and vomiting (Acute) Anxiety (Chronic) Depression (Chronic) Back pain (Chronic) 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
[2022-09-09 15:52] LABS: Magnesium 4.2 mg/dl (1.6-2.3)
--- NOTE | 2022-09-09 18:21 | EXP.DN ---
Delivery Note Delivery Date:: 09/09/22 Delivery Time:: 18:09 Anesthesia Type: Epidural Was labor medically induced?: Yes Induction method: per pitocin protocol Gestational age (weeks): 37 delivered prior to 39 weeks?: Yes Justification for early elective delivery:: Benign Hypertension (Chronic hypertension) and Gestational Diabetes Infant Gender: Female at 1 minute: 8 at 5 minutes: 9 Delivery Procedure:: Mom complete with epidural. Pushed for approximately one contraction. Head delivered spontaneously over intact perineum in OA position. Nuchal cord x 1, easily reduced. Anterior shoulder delivered with gentle downward pressure. Posterior shoulder and remainder of body delivered spontaneously. Baby placed on maternal abdomen, mouth and nares bulb suctioned, warmed/dried and stimulated. Delayed cord clamping was performed for 60 seconds. Cord was clamped and cut by father of baby. Cord blood was obtained. Dr. Smith present for delivery. Placenta delivered spontaneously and intact. Placenta will be sent to pathology for review. No lacerations. Mom and baby were skin to skin and doing well after delivery. Live female baby (baby's name is Mariaelena) APGARs 8, 9 EBL 100 mL Placental Delivery Description: Spontaneous
[2022-09-10] VITALS (22 sets, daily range): BP systolic 98–178; BP diastolic 53–105; PULSE 93–115; RESP 18–20; TEMP 36.5–36.7; O2SAT 96–100
--- NOTE | 2022-09-10 08:18 | EXP.ACUTE.PN ---
Subjective *Date: 09/10/22 *Time: 08:18 Interval history: PPD # 1 s/p Resting comfortably in bed. Admits to headache and feeling crummy. She has history of migraines. She is formula feeding. Appropriate lochia. She states she wishes she could get some sleep. She is currently on mag sulfate. Mag sulfate is due to be discontinued at 1800 tonight. She denies vision changes, RUQ/epigastric pain. She admits swelling has improved. She is voiding without difficulty and passing flatus. Tolerating regular diet. Denies fever/chills, chest pain and shortness of breath. Medical Exam Vital signs and Labs for Last 24 Hours: Vital Signs Temp Pulse Resp BP BP Pulse Ox 09/10/22 06:36 109 H 132/83 09/10/22 06:06 105 H 136/75 09/10/22 05:36 115 H 147/87 H 09/10/22 05:05 111 H 178/102 H 09/10/22 05:00 97.7 F 113 H 19 168/105 H 98 09/10/22 04:58 115 H 173/102 H 09/10/22 03:58 106 H 162/94 H 09/10/22 02:58 100 H 123/91 H 09/10/22 01:58 93 H 114/83 09/10/22 00:58 99 H 116/62 09/09/22 23:58 92 H 116/66 09/09/22 22:55 91 H 105/55 L 09/09/22 22:40 93 H 104/57 L 09/09/22 22:25 93 H 96/54 L 09/09/22 22:10 92 H 97/53 L 09/09/22 21:53 96 H 105/56 L 09/09/22 21:23 121 H 120/73 09/09/22 21:15 129 H 135/80 09/09/22 20:45 121 H 143/92 H 09/09/22 20:15 129 H 151/98 H 09/09/22 20:00 125 H 138/102 H 09/09/22 19:45 118 H 163/99 H 09/09/22 19:30 117 H 162/100 H 09/09/22 19:15 166/105 H 09/09/22 19:00 97.5 F L 120 H 20 161/99 H 99 09/09/22 10:56 229/121 H 09/09/22 09:30 175/107 H Intake and Output 09/09/22 09/10/22 09/10/22 23:59 07:59 15:59 Intake Total 1377 / 1377 Output Total 1100 / 1100 1900 / 1900 Balance -1100 / -1100 -523 / -523 Intake: Intake, Total IV Amount 1377 / 1377 Magnesium Sulfate in Water 20 507 / 507 gm In 500 ml @ 2 GM/HR 50 mls/ hr IV .Q10H KAT Rx#:[id number] Ringers Solution,Lactated 1,000 870 / 870 ml @ 75 mls/hr IV .[id number] KAT Rx#:[id number] Output: Output, Urine Amount 1900 / 1900 Output, Urine Amount (Catheter) 1100 / 1100 Quinn 1100 / 1100 Other: Number of Voids 1 Laboratory Results - last 24 hr 09/09/22 10:00: WBC 9.8, RBC 4.02 L, Hgb 10.7 L, Hct 31.2 L, MCV 77.5 L, MCH 26.5 L, MCHC 34.2, RDW 14.6, Plt Count 295, MPV 9.6, Neut % (Auto) 68.0, Lymph % (Auto) 24.1, [place] % (Auto) 3.1, Eos % (Auto) 4.2, Baso % (Auto) 0.6, Neut # (Auto) 6.6, Lymph # (Auto) 2.4, [place] # (Auto) 0.3, Eos # (Auto) 0.4, Baso # (Auto) 0.1 09/09/22 10:00: PT 9.7 L, INR 0.89 L, APTT 21.7 L, Fibrinogen 383 H 09/09/22 10:00: D-Dimer 1.27 H, Sodium 136, Potassium 4.1, Chloride 108 H, Carbon Dioxide 19 L, Anion Gap 13.1, BUN 9, Creatinine 0.70, Estimated Creat Clear 188, Estimated GFR 94, Est GFR ( Amer) 114, Glucose 105 H, Uric Acid 4.3, Calcium 9.3, AST 25, ALT 17 09/09/22 10:00: Magnesium 1.8 09/09/22 14:59: POC Glucose 100 09/09/22 15:38: Magnesium 4.2 H D 09/09/22 18:25: Magnesium 5.0 H D I & O for Labs for Last 24 Hours: Intake & Output 09/07/22 09/08/22 09/09/22 09/10/22 23:59 23:59 23:59 23:59 Intake Total 1377 / 1377 Output Total 1100 / 1100 1900 / 1900 Balance -1100 / -1100 -523 / -523 Weight 238 lb Head: Present atraumatic and normocephalic ENT: Present normal exam Neck: Present normal inspection and full ROM Respiratory: Present CTA bilaterally and normal respiratory effort Cardiac: Present Reg Rate and Rhythm GI: Present soft; Absent distention or tenderness Comments:: Uterine fundus firm and below umbilicus Rectal (female): Present deferred (female): Present deferred Extremities: Present full ROM and edema (+2 bilateral lower extremity swelling); Absent calf tenderness Neuro: Present Grossly Intact and moves all extremities Assessment and Plan *Assessmen
[2022-09-10 09:04] LABS: Basophils % 0.3 % (0.1-2.0); Eosinophils # 0.1 K/mm3 (0.0-0.4); Eosinophils % 0.8 % (0.1-12.0); Hematocrit 25.4 % (37.0-47.0); Lymphocytes # 1.6 K/mm3 (0.7-4.5); Lymphocytes % 14.4 % (10-50); Mean Corpuscular HGB Conc 34.1 g/dL (31.8-35.4); Mean Corpuscular Hemoglobin 26.7 pg (27.0-31.2); Mean Corpuscular Volume 78.4 fl (81-99); Mean Platelet Volume 9.9 fl (7.4-10.4); Monocytes # 0.3 K/mm3 (0.1-1.0); Monocytes % 2.8 % (1.7-9.3); Neutrophils # 8.8 K/mm3 (1.8-7.8); Neutrophils % 81.6 % (37.0-80.0); Platelet Count 274 K/mm3 (142-424); Red Blood Count 3.24 M/mm3 (4.20-5.40); Red Cell Distribution Width 14.9 % (11.5-17.5); White Blood Count 10.8 K/mm3 (4.8-10.8)
[2022-09-10 09:05] LABS: Chloride 104 mmol/L (98-107); Sodium 132 mmol/L (136-145)
[2022-09-10 09:06] LABS: Potassium 3.8 mmoL/L (3.5-5.1)
[2022-09-10 09:07] LABS: Hemoglobin 8.7 g/dL (12.2-16.2)
[2022-09-10 09:08] LABS: Fibrinogen 318 mg/dL (229.9-363.5)
[2022-09-10 09:09] LABS: Magnesium 5.5 mg/dl (1.6-2.3)
[2022-09-10 09:25] LABS: Alanine Aminotransferase 16 U/L (12-78); Albumin/Globulin Ratio 1.1 (1.1-1.8); Alkaline Phosphatase 146 U/L (38-126); Anion Gap 8.8 mEq/L (5-15); Aspartate Amino Transferase 25 U/L (14-36); Bilirubin,Total 0.1 mg/dl (0.2-1.3); Blood Urea Nitrogen 5 mg/dl (7-17); Calcium 6.1 mg/dl (8.4-10.2); Carbon Dioxide 23 mmol/L (22.0-30.0); Creatinine Clearance Estimated 219 mL/min (50-200); Estimated Glomerular Filt Rate 112 ml/min (>60); GFR (African American) 136 ML/MIN (>60); Globulin 2.8 g/dL (1.3-3.2); Glucose 156 mg/dl (74-100); Lactate Dehydrogenase 241 U/L (313-618); Total Protein,Serum 5.8 g/dl (6.3-8.2)
--- NOTE | 2022-09-10 10:03 | CA_ITS ---
APPROVED REPORT EXAM: Comprehensive 2D, Doppler, and color-flow Echocardiogram [employer] Technician: CARMEL Bains, RVS Ht: 5 ft 6 in Wt: 238lbs BSA: 2.15 BP: 139/84 mmHg Indications: HTN, [id number], 1 day , Auto immune disorder, Identical twin Echo Enhancing Agent Comments: Patient upright and supine during exam-poor acoustic and limited windows. 2D Dimensions IVSd 1.45 cm F: 0.6-1.0 LVEF (Visual) 68.10 % PWd 0.76 cm F: 0.6 - 1.0 LVDd 4.39 cm F: 3.9 - 5.3 LVDs 2.73 cm F: 2.2 - 3.5 LVOT 1.98 cm (M/F) 1.5-2.5 M-Mode Dimensions RVDd 1.29 cm (0.9-2.6) LA Diam 3.63 cm (1.9-4.0) LVDd 4.46 cm (3.5-5.7) Ao Diam 3.33 cm (2.0-3.7) LVDs 3.05 cm (3.5-5.7) IVSd 1.16 cm (0.6-1.1) PWd 0.87 cm (0.6-1.1) EF (Teich) 59.80% EPSs 0.24 cm FS 31.60% EDV (Teich) 90.50 mL TAPSE 2.60 (<1.7) ESV (Teich) 36.40 mL LV Diastology E Decel Time 150.00 (160-240 msec) E/A Ratio 1.03 MED E' 8.00 (< 7 cm/sec) MED A' 11.80 cm/s E'/MED E' Ratio 9.76 (>14) LAT E' 8.40 (<10 cm/sec) LAT A' 9.10 cm/s E/LAT E' Ratio 9.30 (>14) Aortic Valve AoV Peak Suraj. 125.00 (50-130 cm/s) AO Peak GR. 6.20 mmHg AO Mean GR. 3.10 (<5 mmHg) AO VTI 21.61 (18-25 cm) Mitral Valve MV A Velocity 76.00 (40-130 cm/s) E/A Ratio 1.03 MV Decel. Time 150.00 (160-240 ms) Pulmonary Valve PV Peak Velocity 100.00 (50-150 cm/s) Tricuspid Valve TR P. Velocity 147.00 cm/s Left Ventricle Left atrium is normal size, left ventricle is normal size, preserved left ventricular systolic function, estimated ejection fraction 55% with no regional wall motion abnormality, diastolic parameters are within normal range. Right Ventricle Right atrium and right ventricle are normal size and contractility. Aortic Valve Aortic valve is grossly normal, there is no aortic stenosis or aortic insufficiency. Mitral Valve Mitral valve is grossly normal, there is no mitral stenosis, there is trace mitral regurgitation. Tricuspid Valve Tricuspid grossly normal, there is trace tricuspid regurgitation, tricuspid regurgitation jet velocity is inadequate for calculation of the right ventricular systolic pressure. Pulmonic Valve Pulmonic valve is poorly visualized. Great Vessels Aortic root is normal size. Inferior vena cava is poorly visualized. Pericardium No significant pericardial effusion noted. Conclusion 1. Normal left ventricular size, preserved left ventricular systolic function, estimated ejection fraction 55% with no regional wall motion abnormality, diastolic parameters are within normal range. 2. Trace mitral and tricuspid regurgitation. 3. No significant pericardial effusion. 4. Inferior vena cava is poorly visualized. Electronically signed by : Tremaine Fong MD 09/10/2022 20:47:08
--- NOTE | 2022-09-10 11:16 | EXP.CARD.CON ---
History of Present Illness History of Present Illness Consult date: 09/10/22 Requesting physician: Arcelia Fajardo Chief complaint: high BP History of present illness: This is a 37-year-old white female who presented to the hospital for a scheduled induction of labor secondary to gestational diabetes and chronic hypertension. The patient delivered her baby yesterday but during the laboring process the patient did have a significantly elevated blood pressure. The patient was given multiple doses of labetalol as well as Procardia IR. Her blood pressure elevated again this morning and she was given additional Procardia IR. Cardiology was consulted for her labile blood pressure. The patient reports that she is feeling much better now that her blood pressure has improved. She denies any chest pain or pressure. She denies any shortness of breath. She does have lower extremity edema that started yesterday when her blood pressure was high. She states that this has improved. She denies any fever, chills, nausea, vomiting, diarrhea, PND or orthopnea. She states that she is getting a magnesium infusion and it just makes her feel bad right now. [facility] Disclaimer: The information contained in this section may have been updated after the patient was seen, as this information can be updated by other users. Medical History (Updated 09/10/22 @ 11:20 by Connie Saleh APRN) 37 weeks gestation of Atopic dermatitis Cervical strain, acute Chronic hypertension affecting Gestational diabetes Lumbar transverse process fracture Maternal obesity affecting , antepartum Nausea and vomiting No significant past medical history Obesity Partial thickness burn of back Status post normal vaginal delivery Family History Other No significant family history Social History Smoking Status: Never smoker alcohol intake: never substance use type: denies use current occupational status: unemployed Travel in the last 8 weeks: None household members: family housing: house caffeine: Yes Review of Systems Review of Systems Review of systems:: pertinent systems reviewed and negative unless documented below Constitutional Constitutional: Reports system reviewed and no additional complaints, except as documented and Reports lethargy Eyes Eyes: Reports system reviewed and no additional complaints, except as documented ENT Ears, Nose, Mouth, and Throat: Reports system reviewed and no additional complaints, except as documented *Cardiovascular Cardiovascular: Reports system reviewed and no additional complaints, except as documented, Denies chest pain, Denies dyspnea and Reports leg edema *Respiratory Respiratory: Reports system reviewed and no additional complaints, except as documented and Denies dyspnea *Gastrointestinal Gastrointestinal: Reports system reviewed and no additional complaints, except as documented *Genitourinary Genitourinary: Reports system reviewed and no additional complaints, except as documented *Musculoskeletal Musculoskeletal: Reports system reviewed and no additional complaints, except as documented Integumentary/Breasts Skin/Breast: Reports system reviewed and no additional complaints, except as documented *Neurologic Neurologic: Reports system reviewed and no additional complaints, except as documented Psychiatric Psychiatric: Reports system reviewed and no additional complaints, except as documented Endocrine Endocrine: Reports system reviewed and no additional complaints, except as documented Hematologic/Lymphatic Hematologic/Lymphatic: Reports system reviewed and no additional complaints, except as documented Allergic/Immunologic Allergic/Immunologic: Reports system reviewed and no additional complaints, except as documented Exam Data for Last 24 hours Vital signs and Labs for Last 24 Hours:
[2022-09-11 00:16] VITALS: BP 119/70; PULSE 88; RESP 17
[2022-09-11 04:40] VITALS: BP 157/100; PULSE 107; RESP 18; TEMP 36.8; O2SAT 100
[2022-09-11 05:29] VITALS: BP 116/63; PULSE 92; RESP 18; TEMP 36.7
--- NOTE | 2022-09-11 09:29 | EXP.CARD.PN ---
Subjective Subjective Date: 09/11/22 Time: 09:00 Principal diagnosis: htn Interval history: This is a 37-year-old white female who presented to the hospital for scheduled induction secondary to gestational diabetes and chronic hypertension. During her delivery the patient's blood pressure got significantly elevated and cardiology was consulted secondary to her labile blood pressures. She was started on bisoprolol yesterday and her blood pressure has been stable since that time. She denies any chest pain or pressure. She denies any shortness of breath. She still has lower extremity edema which is improving. She has delivered and her blood pressure is now under better control so we do anticipate this continuing to improve. She denies any fever, chills, nausea, vomiting, diarrhea, PND or orthopnea. Exam Data for Last 24 hours Vital signs and Labs for Last 24 Hours: Temp Pulse Resp BP Pulse Ox 98.1 F 92 H 18 116/63 100 09/11/22 05:29 09/11/22 05:29 09/11/22 05:29 09/11/22 05:29 09/11/22 04:40 I & O for Last 24 hours: Intake & Output 09/08/22 09/09/22 09/10/22 09/11/22 23:59 23:59 23:59 23:59 Intake Total 1377 / 1377 Output Total 1100 / 1100 3900 / 3900 Balance -1100 / -1100 -2523 / -2523 Weight 238 lb Narrative: Echocardiogram shows: 1.? Normal left ventricular size, preserved left ventricular systolic function, estimated ejection fraction 55% with no regional wall motion abnormality, diastolic parameters are within normal range. 2.? Trace mitral and tricuspid regurgitation. 3.? No significant pericardial effusion. 4.? Inferior vena cava is poorly visualized. Constitutional Constitutional: no acute distress and obese *Routine HEENT Exam Head: Present normocephalic and atraumatic ENT: Present mucous membranes moist *Routine Neck Exam Neck: Present supple, full ROM and normal carotid upstroke; Absent JVD, carotid bruit or lymphadenopathy *Routine Respiratory Exam Respiratory: Present CTA bilaterally, normal respiratory effort, able to speak in complete sentences and symmetric chest movement *Routine Cardiovascular Exam Cardiovascular: Present RRR, Normal S1 and Normal S2; Absent murmur or gallop *Routine Abdominal Exam Abdominal: Present soft and normoactive bowel sounds; Absent tenderness, distended or organomegaly *Routine Extremities Exam Extremities: Present edema (Trace to 1+ bilateral lower extremity edema), full ROM, pulses intact and normal capillary refill; Absent cyanosis or clubbing *Routine Skin Exam Skin: Present intact and warm; Absent erythema *Routine Neurological Exam Neurological: Present alert, oriented X3 and CN II-XII intact; Absent sensory deficit or motor deficit Routine Psychiatric Exam Psychiatric: Present normal affect Progress Note: A&P Assessment and plan (1) Chronic hypertension: Status: Acute (2) Status post normal vaginal delivery: Status: Acute (3) Chronic hypertension affecting : Status: Acute (4) AMA (advanced maternal age) multigravida 35+: Status: Acute (5) Obesity: Status: Acute (6) Gestational diabetes: Problem details: GDMA2 on Insulin Status: Acute Assessment and Plan Assessment and Plan for All Diagnoses:: Plan: 1. The patient was admitted to the hospital for scheduled induction secondary to gestational diabetes and chronic hypertension affecting . The patient's blood pressure was significantly elevated during delivery and she got multiple doses of labetalol and Procardia IR. Yesterday IV labetalol and Procardia were stopped. The patient has been started on bisoprolol 5 mg p.o. daily for better blood pressure control and her blood pressure has been stable since that time. Bisoprolol is preferred over labetalol secondary to tachyphylaxis and a longer acting medication with a longer half-life will cause less fluctuations. Continue bisoprolol 5 mg p.o. daily on an outpatient basis. 2. Her ec
--- NOTE | 2022-09-11 10:10 | EXP.DC.SUM ---
General Admission date:: 09/09/22 Discharge date: 09/11/22 HPI HPI HPI: PPD # 2 s/p Doing well. Pain controlled. Light lochia. She is formula feeding. She states she is feeling better. She completed 24 hours of mag sulfate. She is voiding without difficulty and passing flatus. Tolerating regular diet. Denies fever/chills, chest pain and shortness of breath. Admits to lower extremity swelling. Hospital Course Hospital Course Hospital Course: Mrs Erendira Ahmadi is a 37 yo at 37w2d, by first trimester ultrasound with EDC 09/28/22, who presented to [facility] for scheduled induction of labor secondary to CHTN on medication. She also has GDMA2 and is taking insulin. She is taking Labetalol 200 mg at 0630, 300 mg at 1430 and 300 mg at 2230. PDC has been managing her blood sugars. She was taking Lantus 28 units in the PM. During induction she had severe range blood pressures. She received IV Labetalol 20mg an then 40 mg. She then received Procardia IR 10mg followed by 20 mg with improvement in blood pressure. She was also started on mag sulfate. PIH labs were within normal limits. PPD # 1 she was doing okay. She was on mag sulfate and feeling tired with mild headache. Appropriate lochia. Formula feeding. Blood pressures continued to be labile . Cardiology was consulted. She was tolerating regular diet. She was voiding without difficulty and passing flatus. Heart was regular rate and rhythm. Lungs were clear to auscultation. Abdomen was soft, nontender. She had +2 bilateral lower extremity edema. No calf tenderness. PPD# 2 feeling well. Mag sulfate was discontinued 24 hours after delivery. BP improved with change in medication and management by cardiology. Formula feeding. Light lochia. Tolerating regular diet. Voiding without difficulty and passing flatus. Heart was regular rate and rhythm. Lungs clear to auscultation. Abdomen soft, nontender. She had +2 bilateral lower extremity edema. No calf tenderness to palpation. She was discharged home on PPD #2 with follow-up in 4 days for BP check and 2 week follow-up with cardiology. Exam Data for Last 24 hours Vital signs and Labs for Last 24 Hours: Temp Pulse Resp BP Pulse Ox 98.1 F 92 H 18 116/63 100 09/11/22 05:29 09/11/22 05:29 09/11/22 05:29 09/11/22 05:29 09/11/22 04:40 I & O for Last 24 hours: Intake & Output 09/08/22 09/09/22 09/10/22 09/11/22 23:59 23:59 23:59 23:59 Intake Total 1377 / 1377 Output Total 1100 / 1100 3900 / 3900 Balance -1100 / -1100 -2523 / -2523 Weight 238 lb Constitutional Constitutional: no acute distress *Routine HEENT Exam Head: Present normocephalic and atraumatic Eye: Absent conjunctivae pink ENT: Present mucous membranes moist and dentition normal *Routine Neck Exam Neck: Present full ROM *Routine Respiratory Exam Respiratory: Present CTA bilaterally and normal respiratory effort *Routine Cardiovascular Exam Cardiovascular: Present RRR *Routine Abdominal Exam Abdominal: Present soft and normoactive bowel sounds; Absent tenderness Comments: uterine fundus firm and below umbilicus *Routine Rectal Exam Patient deferred: visual exam *Routine Exam Patient deferred: external exam *Routine Extremities Exam Extremities: Present edema (+2 bilateral lower extremity edema) and full ROM; Absent calf tenderness *Routine Neurological Exam Neurological: Present alert, oriented X3 and moving all extremities Routine Psychiatric Exam Psychiatric: Present normal affect and cooperative DS: Diagnosis Discharge Diagnosis (1) Status post normal vaginal delivery: Status: Acute (2) Chronic hypertension affecting : Status: Acute (3) Chronic hypertension: Status: Acute (4) AMA (advanced maternal age) multigravida 35+: Status: Acute (5) Obesity: Status: Acute (6) Gestational diabetes: Status: Acute Problem details: GDMA2 on Insulin (7) Acute blood loss anemia:
== END 2022-09-11 11:30 | disposition home or self-care (01) | DRG 806 ==
PROVIDERS: Admitting Provider Obstetrics & Gynecology; PCP Emergency Medicine; Visit Provider Obstetrics & Gynecology
DX: O24.424 Gestational diabetes mellitus in childbirth, insulin controlled (principal); O10.02 Pre-existing essential hypertension complicating childbirth; Z37.0 Single live birth; Z3A.37 37 weeks gestation of pregnancy; O69.81X0 Labor and delivery complicated by cord around neck, without compression, not applicable or unspecified
CPT/HCPCS: 59409; 36415; 59025; 80048; 80053; 80305; 81001; 82962; 83615; 83735; 84450; 84460; 84550; 85025; 85378; 85384; 85610; 85730; 86850; 93306; 94761; C1758; C9803; G0283; J2405; U0003; U0005

== ENCOUNTER 2022-09-14 16:17 | Inpatient (IN) | payer OTHER, SELFPAY ==
[2022-09-14] VITALS (23 sets, daily range): BP systolic 92–224; BP diastolic 70–137; PULSE 118–149; RESP 15–22; TEMP 36.8–37.2; O2SAT 93–100; BMI 35.5
--- NOTE | 2022-09-14 16:50 | PC.NURSE ---
Radiology has been called about an ultrasound for patient
--- NOTE | 2022-09-14 16:55 | US_ITS ---
PROCEDURE INFORMATION: Exam: US Nonobstetric Pelvis; Complete Exam date and time: 09/14/2022 5:59 PM Age: 37 years old Clinical indication: Other: Bleeding; Additional info: Vaginal bleeding/pain, post part 09/09/22 TECHNIQUE: Imaging protocol: Transabdominal pelvic nonobstetric ultrasound. Complete exam. Real time ultrasound with image documentation. COMPARISON: US OB BIOPHYSICAL PROFILE 08/22/2022 1:22 PM FINDINGS: Uterus: Heterogeneous low level internal echoes are present within the endometrial cavity. Endometrial stripe measures 2.3 cm. No myometrial masses. Anteverted uterus measures 16 x 7.9 x 9.7 cm. Right ovary/adnexa: Ovary is normal. No mass. Normal blood flow. Left ovary/adnexa: Ovary is normal. No mass. Normal blood flow. Intraperitoneal space: No adnexal masses or free fluid. Ovaries are not visualized. Urinary bladder: Normal. IMPRESSION: 1. Endometrial fluid and hematoma is present causing abnormal thickening of the endometrial stripe. No abnormal color Doppler signals are present in the endometrium to suggest active hemorrhage. Retained products of conception are not likely but cannot be entirely excluded. Consider endometritis. 2. No adnexal masses or free fluid. 3. Ovaries are not visualized. 4. Enlarged uterus is not unexpected 5 days .
[2022-09-14 17:03] LABS: Basophils # 0.1 K/mm3 (0-0.2); Basophils % 0.8 % (0.1-2.0); Eosinophils # 0.5 K/mm3 (0.0-0.4); Eosinophils % 6.3 % (0.1-12.0); Hematocrit 28.4 % (37.0-47.0); Hemoglobin 9.4 g/dL (12.2-16.2); Lymphocytes # 2.1 K/mm3 (0.7-4.5); Lymphocytes % 25.6 % (10-50); Mean Corpuscular HGB Conc 33.1 g/dL (31.8-35.4); Mean Corpuscular Hemoglobin 26.4 pg (27.0-31.2); Mean Corpuscular Volume 79.7 fl (81-99); Mean Platelet Volume 8.2 fl (7.4-10.4); Microscopic, Urine URINE MICROSCOPIC (MICROSCOPIC); Monocytes # 0.3 K/mm3 (0.1-1.0); Monocytes % 3.6 % (1.7-9.3); Neutrophils # 5.2 K/mm3 (1.8-7.8); Neutrophils % 63.6 % (37.0-80.0); Platelet Count 384 K/mm3 (142-424); Red Blood Count 3.56 M/mm3 (4.20-5.40); Red Cell Distribution Width 15.1 % (11.5-17.5); White Blood Count 8.1 K/mm3 (4.8-10.8)
[2022-09-14 17:06] LABS: Chloride 102 mmol/L (98-107); Sodium 138 mmol/L (136-145)
[2022-09-14 17:07] LABS: Potassium 3.7 mmoL/L (3.5-5.1)
[2022-09-14 17:09] LABS: Alanine Aminotransferase 100 U/L (12-78); Albumin Level 3.9 g/dl (3.5-5.0); Albumin/Globulin Ratio 1.1 (1.1-1.8); Alkaline Phosphatase 240 U/L (38-126); Anion Gap 13.7 mEq/L (5-15); Aspartate Amino Transferase 136 U/L (14-36); Bilirubin,Total 0.5 mg/dl (0.2-1.3); Blood Urea Nitrogen 4 mg/dl (7-17); Carbon Dioxide 26 mmol/L (22.0-30.0); Creatinine Clearance Estimated 173 mL/min (50-200); Estimated Glomerular Filt Rate 94 ml/min (>60); GFR (African American) 114 ML/MIN (>60); Globulin 3.5 g/dL (1.3-3.2); Total Protein,Serum 7.4 g/dl (6.3-8.2)
[2022-09-14 17:10] LABS: Calcium 8.7 mg/dl (8.4-10.2); Glucose 105 mg/dl (74-100)
[2022-09-14 17:25] LABS: Appearance,Urine CLEAR (Clear); Bilirubin,Urine Negative (Negative); Blood, Urine 3+ (Negative); Color,Urine YELLOW (Yellow); Glucose,Urine (UA) Negative (Negative); Ketones,Urine Negative (Negative); Leukocyte Esterase,Urine 2+ (Negative); Nitrate,Urine POSITIVE (Negative); Protein,Urine TRACE (Negative)
--- NOTE | 2022-09-14 17:42 | PC.NURSE ---
has been paged
--- NOTE | 2022-09-14 17:43 | PC.NURSE ---
on the phone with
--- NOTE | 2022-09-14 17:43 | PC.NURSE ---
Patient head to US
--- NOTE | 2022-09-14 17:49 | PC.NURSE ---
has been paged
--- NOTE | 2022-09-14 17:54 | XR_ITS ---
PROCEDURE INFORMATION: Exam: XR Chest Exam date and time: 09/14/2022 7:00 PM Age: 37 years old Clinical indication: Pain; Angina pectoris; Additional info: Cp TECHNIQUE: Imaging protocol: Radiologic exam of the chest. Views: 1 view. Portable chest x-ray COMPARISON: CR XR CHEST 2V 03/03/2022 8:51 PM FINDINGS: Lungs: No airspace consolidation. 8 mm nodular density superimposed upon the posterior right 8th rib and lung base is unchanged. Pleural spaces: No pleural effusion. No pneumothorax. Heart/Mediastinum: No abnormalities. No cardiomegaly. No pulmonary vascular congestion. Bones/joints: No fractures or bone lesions. IMPRESSION: 1. No acute findings in the chest. 2. 8 mm nodular density related to the right lung base is unchanged since 03/03/2022. Chest x-ray follow-up is suggested within 18 months to document stability. Alternatively, CT of the chest without contrast would be useful.
--- NOTE | 2022-09-14 17:54 | ECG_ITS ---
APPROVED REPORT Exam: Resting ECG HR:126 bpm ECG Measurements Heart Rate 126 AXES WY 146 P 51 QRSd 81 QRS -13 QT 281 T 30 QTc 356 Conclusion SINUS TACHYCARDIA VOLTAGE CRITERIA FOR LVH [MEETS CRITERIA IN ONE OF: R(aVL), S(V1), R(V5), R(V5/V6)+S(V1)] Atrial abnormality Late r wave progression ABNORMAL ECG UNCONFIRMED REPORT Electronically signed by : Linus Olivera MD 09/16/2022 17:00:32
--- NOTE | 2022-09-14 18:05 | HMH.EDGENADL ---
Discharge Plan Disposition Patient Disposition: Admitted As Inpatient Condition: Serious Prescriptions Prescriptions: No Action sumatriptan succinate 50 mg tablet 50 mg PO Q2H PRN (Reason: migraine headache) Qty: 30 0RF Rx Instructions: do not exceed 4 doses per 24 hrs duloxetine 20 mg capsule,delayed release(DR/EC) 20 mg PO BID Qty: 60 2RF tizanidine 4 mg capsule 8 mg PO TID Qty: 180 0RF clonazepam [Klonopin] 0.5 mg tablet 0.5 mg PO TID Qty: 90 0RF tramadol 50 mg tablet 50 mg PO TID Qty: 90 0RF bisoprolol fumarate 5 mg Tablet 5 mg PO DAILY Qty: 30 2RF Referrals Follow up/Referrals: Provider,Referral, MD [Primary Care Provider] - See instructions Clinical Impressions Clinical Impression: Hypertensive emergency, Sinus tachycardia, Abdominal pain, bleeding, UTI (urinary tract infection), Elevated liver enzymes, Anemia Instructions Patient Instructions: DI for Acute Abdominal Pain Discharge ED Provider: Joey Madison General Adult HPI General Chief complaint: Abdominal Pain Stated complaint: post , adm pain, poss UTI, poss high BP Time Seen by Provider: 09/14/22 17:31 Mode of Arrival: Ambulatory Source of Information: Patient and Parent(s) Limitations: No Limitations Description of Symptoms (Recalled from ER Triage Doc. by RN): c/o lower abdomen pain with frequent urination and lower bilateral leg swelling and REEVES. Pt is post delivery of 5 days. PT states that she has had high bp before and her bp medicine was changed during , pt was sent home with bisoprolol 5 mg daily po per cardiology. Pt is having increased bleeding from delivery and is going through 10 or more briefs per pt, mother states these are not fully saturated, she just likes to stay clean. History of Present Illness HPI narrative: The patient is 5 days. She has multiple complaints. Her blood pressure is high. She has lower abdominal pain. She has frequent urination. She has bilateral leg swelling. She has headaches. She has nausea. She has some mild anterior chest pain and some shortness of breath. She is having vaginal bleeding, passing clots about the size of walnuts. Denies blurry vision. She has a history of hypertension preceding her , she had been on labetalol and lisinopril prior to . Lisinopril was discontinued during and she was on labetalol 3 times a day. Her blood pressure was extremely high in the peripartum period. She was given IV labetalol as well as Procardia. She was treated with magnesium. Cardiology was consulted. She had an echocardiogram. Medication was changed from labetalol to bisoprolol at the time of discharge. Related Data Previous Rx's Medication Instructions Recorded bisoprolol fumarate 5 mg tablet 5 mg PO DAILY #30 tabs 09/11/22 clonazepam 0.5 mg tablet (Klonopin) 0.5 mg PO TID #90 tabs 09/11/22 duloxetine 20 mg capsule,delayed 20 mg PO BID #60 caps 09/11/22 release sumatriptan succinate 50 mg tablet 50 mg PO Q2H PRN migraine headache 09/11/22 #30 tabs tizanidine 4 mg capsule 8 mg PO TID #180 caps 09/11/22 tramadol 50 mg tablet 50 mg PO TID #90 tabs 09/11/22 Allergies Allergy/AdvReac Type Severity Reaction Status Date / Time No Known Allergies Allergy Verified 09/01/22 14:08 [facility] Disclaimer: The information contained in this section may have been updated after the patient was seen, as this information can be updated by other users. Medical History (Updated 09/14/22 @ 19:59 by Joey Madison MD) 37 weeks gestation of Acute blood loss anemia Atopic dermatitis Cervical strain, acute Chronic hypertension affecting Gestational diabetes Lumbar transverse process fracture Maternal obesity affecting , antepartum Nausea and vomiting No significant past medical history Obesity Partial thickness burn of back Status post normal vaginal delivery F
[2022-09-14 18:19] LABS: RBC,Urine 20-50 #/hpf (0-3); Squamous Epithelial Cell,Urine Occasional #/hpf (0-5)
[2022-09-14 18:26] LABS: NT Pro Brain Natriuretic Pep. 411 pg/mL (0-125)
[2022-09-14 18:35] LABS: Troponin I < 0.01 ng/ml (0.00-0.034)
--- NOTE | 2022-09-14 18:47 | PC.NURSE ---
Yohana Chris and RILEY Herrera at BS
--- NOTE | 2022-09-14 18:51 | PC.NURSE ---
multiple trips to the bathroom. pt tolerated well. mother assisted pt and myself
--- NOTE | 2022-09-14 19:30 | PC.NURSE ---
pt requesting update from MD. HOPE aware
[2022-09-14 19:55] LABS: Coronavirus 19, PCR Not Detected (NotDetected); Influenza A, PCR Not Detected (NotDetected); Influenza B, PCR Not Detected (NotDetected)
[2022-09-14 20:09] LABS: Lactate Dehydrogenase 368 U/L (313-618)
[2022-09-14 20:14] LABS: Fibrinogen 479 mg/dL (229.9-363.5)
[2022-09-14 20:42] LABS: INR 0.86 (0.9-1.1); Prothrombin Time 9.4 seconds (10.1-12.5)
--- NOTE | 2022-09-14 21:04 | EXP.HP ---
History of Present Illness *Admission Date: 09/14/22 *Reason for visit:: Abdominal Pain, Nausea, Painful and frequent urination, BLE swelling *History of present illness: Ms. Erendira Ahmadi is a 37-year-old female with a past medical history of Chronic Hypertension, Gestational DM, Sjogrens, Migraine Headaches, Anxiety Disorder. She presented to [facility] with complaints of Colicky mid lower quadrant abdominal pain, nausea, headache, painful and frequent urination that has worsened over a 3-day period since being discharged from the facility on 09/11/2022. The patient was admitted on 09/09 and gave . During that hospitalizaton she had elevated blood pressure readings and was evaluated by Cardiology. She underwent an echocardiogram that showed normal LVSF and preserved EF. She was treated with Bisoprolol at discharge with follow-up in the Cardiology clinic. She reports that symptoms were present but has worsened over a 3-day period. Upon evaluation in the ER blood pressure was 204/128. Hgb was 9.4. Platelets were 384. AST is 136, ALT 100. Cxray shows no acute cardiopulmonary findings. TVUS showed endometrial fluid and hematoma causing abnormal thicking of the endometrial stripe. Urinalysis showed trace protein, 2 plus leukoesterase, 3-5 wbc and was positive for nitrates. Case was discussed with ER Physician Dr. Madison who consulted OBGYN and Cardiology in the ER. The patient was placed on a Nipride gtt. The patient will be admitted with initial impression: Hypertensive Emergency, further labs and testing will be obtained to work through differentials. The plan of care was discussed with the patient and her mother at bedside. Both verbalized understanding and agreement with the plan of care. [facility] Disclaimer: The information contained in this section may have been updated after the patient was seen, as this information can be updated by other users. Medical History 37 weeks gestation of Acute blood loss anemia Atopic dermatitis Cervical strain, acute Chronic hypertension affecting Gestational diabetes Lumbar transverse process fracture Maternal obesity affecting , antepartum Nausea and vomiting No significant past medical history Obesity Partial thickness burn of back Status post normal vaginal delivery Family History Other No significant family history Social History Smoking Status: Never smoker alcohol intake: never substance use type: denies use current occupational status: unemployed Travel in the last 8 weeks: None household members: family housing: house caffeine: Yes Review of Systems Review of Systems Review of systems:: pertinent systems reviewed and negative unless documented below Constitutional Constitutional: Reports headache(s), Reports lethargy and Denies weakness Eyes Eyes: Reports system reviewed and no additional complaints, except as documented ENT Ears, Nose, Mouth, and Throat: Reports headache(s) *Cardiovascular Cardiovascular: Reports chest pain *Respiratory Respiratory: Reports system reviewed and no additional complaints, except as documented *Gastrointestinal Gastrointestinal: Reports abdominal pain and Reports nausea *Genitourinary Genitourinary: Reports dysuria, Reports hematuria and Reports urinary urgency *Musculoskeletal Musculoskeletal: Denies numbness Integumentary/Breasts Skin/Breast: Reports system reviewed and no additional complaints, except as documented *Neurologic Neurologic: Reports headache(s), Denies numbness and Denies weakness Psychiatric Psychiatric: Reports system reviewed and no additional complaints, except as documented Endocrine Endocrine: Reports system reviewed and no additional complaints, except as documented Hematologic/Lymphati
[2022-09-14 21:29] LABS: Troponin I < 0.01 ng/ml (0.00-0.034)
--- NOTE | 2022-09-14 21:52 | PC.NURSE ---
family concerned about BP. obtained a manual BP of 170/110. Increased gtt rate to 0.8mcg/kg/min (33ml/hr)
--- NOTE | 2022-09-14 22:18 | PC.NURSE ---
PT ARRIVED TO FLOOR VIA STRETCHER AT THIS TIME
--- NOTE | 2022-09-14 23:00 | HMH.ITSTN ---
spoke with nurse. not able to bring patient down at this time. Nurse will call me when patient can come down for ct.
[2022-09-14 23:31] LABS: Basophils # 0.1 K/mm3 (0-0.2); Basophils % 0.6 % (0.1-2.0); Eosinophils # 0.5 K/mm3 (0.0-0.4); Eosinophils % 6.1 % (0.1-12.0); Hematocrit 27.4 % (37.0-47.0); Hemoglobin 9.1 g/dL (12.2-16.2); Lymphocytes # 1.5 K/mm3 (0.7-4.5); Lymphocytes % 18.7 % (10-50); Mean Corpuscular HGB Conc 33.1 g/dL (31.8-35.4); Mean Corpuscular Hemoglobin 25.8 pg (27.0-31.2); Mean Platelet Volume 8.3 fl (7.4-10.4); Monocytes # 0.4 K/mm3 (0.1-1.0); Monocytes % 4.5 % (1.7-9.3); Neutrophils # 5.8 K/mm3 (1.8-7.8); Platelet Count 430 K/mm3 (142-424); Red Blood Count 3.52 M/mm3 (4.20-5.40); Red Cell Distribution Width 15.3 % (11.5-17.5); White Blood Count 8.2 K/mm3 (4.8-10.8)
[2022-09-14 23:49] LABS: Alanine Aminotransferase 137 U/L (12-78); Albumin Level 3.8 g/dl (3.5-5.0); Albumin/Globulin Ratio 1.2 (1.1-1.8); Alkaline Phosphatase 279 U/L (38-126); Anion Gap 11.7 mEq/L (5-15); Aspartate Amino Transferase 206 U/L (14-36); Bilirubin,Total 0.3 mg/dl (0.2-1.3); Blood Urea Nitrogen 4 mg/dl (7-17); Calcium 8.6 mg/dl (8.4-10.2); Carbon Dioxide 27 mmol/L (22.0-30.0); Chloride 100 mmol/L (98-107); Creatinine Clearance Estimated 173 mL/min (50-200); Estimated Glomerular Filt Rate 94 ml/min (>60); GFR (African American) 114 ML/MIN (>60); Globulin 3.2 g/dL (1.3-3.2); Glucose 135 mg/dl (74-100); Potassium 3.7 mmoL/L (3.5-5.1); Sodium 135 mmol/L (136-145)
[2022-09-15] VITALS (21 sets, daily range): BP systolic 101–164; BP diastolic 42–108; PULSE 81–140; RESP 15–22; TEMP 36.7–37.1; O2SAT 90–99; BMI 37.1
--- NOTE | 2022-09-15 00:01 | CT_ITS ---
PROCEDURE INFORMATION: Exam: CT Head Without Contrast Exam date and time: 09/15/2022 12:15 AM Age: 37 years old Clinical indication: Pain; Headache; Additional info: Severe headache TECHNIQUE: Imaging protocol: Computed tomography of the head without contrast. Radiation optimization: All CT scans at this facility use at least one of these dose optimization techniques: automated exposure control; mA and/or kV adjustment per patient size (includes targeted exams where dose is matched to clinical indication); or iterative reconstruction. COMPARISON: MR HEAD/BRAIN WO CON 05/23/2021 5:09 PM FINDINGS: Brain: No mass effect or midline shift. No intracranial hemorrhage. No intracranial edema. No evidence of acute territorial ischemia. No significant white matter disease. Cerebral ventricles: No ventriculomegaly. Paranasal sinuses: No acute findings. No fluid levels. Mastoid air cells: No significant mastoid effusion. Bones/joints: No acute fracture. Soft tissues: No acute findings. IMPRESSION: No acute intracranial findings.
--- NOTE | 2022-09-15 00:08 | CT_ITS ---
PROCEDURE INFORMATION: Exam: CT Abdomen And Pelvis Without Contrast Exam date and time: 09/15/2022 12:18 AM Age: 37 years old Clinical indication: Abdominal pain; Prior surgery; Surgery date: 3-7 days post-operative; Additional info: Abdominal pain, recent delivery, elevated lft's TECHNIQUE: Imaging protocol: Computed tomography of the abdomen and pelvis without contrast. Radiation optimization: All CT scans at this facility use at least one of these dose optimization techniques: automated exposure control; mA and/or kV adjustment per patient size (includes targeted exams where dose is matched to clinical indication); or iterative reconstruction. COMPARISON: US PELVIC 09/14/2022 5:59 PM FINDINGS: Lungs: Calcified granuloma noted in the right lower lobe. Basilar lung parenchyma is otherwise clear. Heart: Normal heart size. Liver: Normal configuration. Homogeneous parenchyma. Gallbladder and bile ducts: Prior cholecystectomy. No biliary tree dilation or high-density retained stones appreciated. No biliary tree dilation. Pancreas: Normal. No ductal dilation. Spleen: Normal. No splenomegaly. Adrenal glands: Normal configuration. Kidneys and ureters: Minimal prominence of the right ureter is likely physiologic in the setting of recent . No features of renal obstruction. Stomach and bowel: Large volume retained fecal debris noted throughout the colon. Postprandial stomach. Normal caliber small bowel. Appendix: Normal appendix is confirmed. Intraperitoneal space: No free air. No significant fluid collection. Vasculature: Normal caliber arterial structures. Lymph nodes: No enlarged lymph nodes. Urinary bladder: Unremarkable as visualized. Reproductive: Enlarged uterus compatible with recent state. Bones/joints: No fracture or destructive lesion. Soft tissues: Unremarkable. IMPRESSION: 1. Homogeneous liver parenchyma. No evidence of biliary obstruction. No abnormality to explain abnormal liver function tests. 2. Moderate fecal debris throughout the colon may reflect constipation which could be symptomatic. Otherwise no abnormality to explain patient's abdomen pain.
--- NOTE | 2022-09-15 00:10 | PC.NURSE ---
PT LEFT FLOOR VIA BED TO CT SCAN AT THIS TIME
--- NOTE | 2022-09-15 00:25 | PC.NURSE ---
PT ARRIVED BACK TO FLOOR VIA BED AT THIS TIME
[2022-09-15 00:32] LABS: Troponin I < 0.01 ng/ml (0.00-0.034)
[2022-09-15 02:28] LABS: Chloride 101 mmol/L (98-107); Potassium 3.7 mmoL/L (3.5-5.1); Sodium 135 mmol/L (136-145)
[2022-09-15 02:30] LABS: Basophils # 0.1 K/mm3 (0-0.2); Basophils % 0.6 % (0.1-2.0); Blood Urea Nitrogen 4 mg/dl (7-17); Creatinine Clearance Estimated 202 mL/min (50-200); Eosinophils # 0.5 K/mm3 (0.0-0.4); Eosinophils % 5.1 % (0.1-12.0); Estimated Glomerular Filt Rate 112 ml/min (>60); GFR (African American) 136 ML/MIN (>60); Hematocrit 25.5 % (37.0-47.0); Hemoglobin 8.7 g/dL (12.2-16.2); Lymphocytes # 1.7 K/mm3 (0.7-4.5); Lymphocytes % 18.9 % (10-50); Mean Corpuscular HGB Conc 34.2 g/dL (31.8-35.4); Mean Corpuscular Hemoglobin 26.5 pg (27.0-31.2); Mean Corpuscular Volume 77.6 fl (81-99); Mean Platelet Volume 8.1 fl (7.4-10.4); Monocytes # 0.4 K/mm3 (0.1-1.0); Monocytes % 4.3 % (1.7-9.3); Neutrophils # 6.2 K/mm3 (1.8-7.8); Platelet Count 447 K/mm3 (142-424); Red Blood Count 3.29 M/mm3 (4.20-5.40); Red Cell Distribution Width 15.5 % (11.5-17.5); White Blood Count 8.7 K/mm3 (4.8-10.8)
[2022-09-15 02:31] LABS: Alanine Aminotransferase 114 U/L (12-78); Albumin Level 3.5 g/dl (3.5-5.0); Albumin/Globulin Ratio 1.1 (1.1-1.8); Alkaline Phosphatase 254 U/L (38-126); Anion Gap 9.7 mEq/L (5-15); Aspartate Amino Transferase 141 U/L (14-36); Bilirubin,Total 0.2 mg/dl (0.2-1.3); Calcium 8.3 mg/dl (8.4-10.2); Carbon Dioxide 28 mmol/L (22.0-30.0); Globulin 3.1 g/dL (1.3-3.2); Glucose 142 mg/dl (74-100); Lactate Dehydrogenase 339 U/L (313-618); Total Protein,Serum 6.6 g/dl (6.3-8.2)
--- NOTE | 2022-09-15 03:21 | PC.NURSE ---
Nipride decreased to 1mcg/kg/min at this time. BP 128/72
--- NOTE | 2022-09-15 03:33 | PC.NURSE ---
Nipride gtt decreased to 0.8mcg/kg/min at this time. BP 120/75
--- NOTE | 2022-09-15 04:56 | PC.NURSE ---
Pt remains on Nipride gtt. Currently infusing @ 3mcg/kg/min. Titrated per protocol and per Jesús HOPE orders. MD Fields consulted this shift for BP and HR. New orders received and carried out. CBC, CMP, LHD labs ordered. Dilaudid 2 mg IV and Metoprolol tartrate 100 mg PO ordered in addition to 50 mg PO KAT this shift. Echo scheduled in AM. VS have improved. HR 120s. BP 142/82 at this time. Pt's abdominal pain is currently controlled and declined any additional medication at this time. Call light within reach. Mother at bedside.
--- NOTE | 2022-09-15 05:02 | PC.NURSE ---
Nipride titration 2245 - 1 mcg/kg/min 2308 - 2 mcg/kg/min 2345 - 3 mcg/kg/min 0200 - 2 mcg/kg/min 0321 - 1 mcg/kg/min 0333 - 0.8 mcg/kg/min 0348 - 1 mcg/kg/min 0405 - 3 mcg/kg/min
[2022-09-15 06:48] LABS: Basophils # 0.1 K/mm3 (0-0.2); Basophils % 0.5 % (0.1-2.0); Eosinophils # 0.5 K/mm3 (0.0-0.4); Eosinophils % 4.6 % (0.1-12.0); Hematocrit 26.5 % (37.0-47.0); Hemoglobin 8.9 g/dL (12.2-16.2); Lymphocytes # 1.9 K/mm3 (0.7-4.5); Lymphocytes % 18.2 % (10-50); Mean Corpuscular HGB Conc 33.5 g/dL (31.8-35.4); Mean Corpuscular Hemoglobin 26.2 pg (27.0-31.2); Mean Corpuscular Volume 78.2 fl (81-99); Mean Platelet Volume 8.8 fl (7.4-10.4); Monocytes # 0.4 K/mm3 (0.1-1.0); Monocytes % 3.7 % (1.7-9.3); Neutrophils # 7.5 K/mm3 (1.8-7.8); Neutrophils % 73.1 % (37.0-80.0); Platelet Count 442 K/mm3 (142-424); Red Blood Count 3.39 M/mm3 (4.20-5.40); Red Cell Distribution Width 15.3 % (11.5-17.5); White Blood Count 10.3 K/mm3 (4.8-10.8)
[2022-09-15 06:55] LABS: Alanine Aminotransferase 101 U/L (12-78); Albumin Level 3.5 g/dl (3.5-5.0); Albumin/Globulin Ratio 1.1 (1.1-1.8); Alkaline Phosphatase 256 U/L (38-126); Anion Gap 11.6 mEq/L (5-15); Aspartate Amino Transferase 120 U/L (14-36); Bilirubin,Total 0.3 mg/dl (0.2-1.3); Blood Urea Nitrogen 5 mg/dl (7-17); Calcium 8.4 mg/dl (8.4-10.2); Carbon Dioxide 25 mmol/L (22.0-30.0); Chloride 101 mmol/L (98-107); Creatinine Clearance Estimated 213 mL/min (50-200); Estimated Glomerular Filt Rate 112 ml/min (>60); GFR (African American) 136 ML/MIN (>60); Globulin 3.2 g/dL (1.3-3.2); Glucose 139 mg/dl (74-100); Potassium 3.6 mmoL/L (3.5-5.1); Sodium 134 mmol/L (136-145); Total Protein,Serum 6.7 g/dl (6.3-8.2)
--- NOTE | 2022-09-15 07:12 | ECG_ITS ---
APPROVED REPORT Exam: Resting ECG HR:136 bpm ECG Measurements Heart Rate 136 AXES DE 134 P 68 QRSd 77 QRS 59 QT 291 T 44 QTc 371 Conclusion SINUS TACHYCARDIA MODERATE ST DEPRESSION [0.05+ mV ST DEPRESSION] ABNORMAL ECG UNCONFIRMED REPORT Electronically signed by : Linus Olivera MD 09/15/2022 20:02:38
[2022-09-15 07:43] LABS: Thyroid Stimulating Hormone 0.31 uIU/mL (0.465-4.68)
--- NOTE | 2022-09-15 08:00 | CA_ITS ---
APPROVED REPORT EXAM: Comprehensive 2D, Doppler, and color-flow Echocardiogram Equipment Cleaner: [employer] CRT Ht: 5 ft 6 in Wt: 220lbs BSA: 2.08 BP: 103/55 mmHg Indications: POST 6 DAYS, TACHYCARDIA, EDEMA, HTN CRISIS, AUTOIMMUNE DISORDER, IDENTICAL TWIN, EF 09/09/22 55% M-Mode Dimensions RVDd 2.26 cm (0.9-2.6) LA Diam 3.03 cm (1.9-4.0) LVDd 3.76 cm (3.5-5.7) Ao Diam 3.63 cm (2.0-3.7) LVDs 2.40 cm (3.5-5.7) IVSd 1.51 cm (0.6-1.1) PWd 0.84 cm (0.6-1.1) EF (Teich) 66.60% FS 36.20% EDV (Teich) 60.40 mL ESV (Teich) 20.20 mL Conclusion 1. Limited echocardiogram was obtained to evaluate left ventricular systolic function. 2. Normal left ventricular size, hyperdynamic left ventricular systolic function, estimated ejection fraction over 65% with no regional wall motion abnormality. 3. No significant pericardial effusion noted. Electronically signed by : Tremaine Fong MD 09/16/2022 06:18:59
--- NOTE | 2022-09-15 08:02 | CT_ITS ---
PROCEDURE INFORMATION: Exam: CTA Chest With Contrast Exam date and time: 09/15/2022 9:45 AM Age: 37 years old Clinical indication: Tachypnea; Additional info: R/O pe-- complications and high blood pressure after 5 days ago-- tachycardia TECHNIQUE: Imaging protocol: Computed tomographic angiography of the chest with contrast. 3D rendering (Not supervised by radiologist): MIP and/or 3D reconstructed images were created by the technologist. Radiation optimization: All CT scans at this facility use at least one of these dose optimization techniques: automated exposure control; mA and/or kV adjustment per patient size (includes targeted exams where dose is matched to clinical indication); or iterative reconstruction. Contrast material: [id number]; Contrast volume: 70 ml; Contrast route: INTRAVENOUS (IV); COMPARISON: CR XR CHEST PORTABLE 09/14/2022 7:00 PM FINDINGS: Pulmonary arteries: The pulmonary arteries are poorly opacified such that evaluation of the peripheral pulmonary arteries is considered nondiagnostic. Otherwise, no evidence of a large central pulmonary embolus. Aorta: No aortic aneurysm. No aortic dissection. Lungs: Mild reticular and ground-glass type opacities in the lungs, greater in the basilar regions. Findings are likely at least in part due to linear atelectasis/fibrosis, but mild edema or pneumonitis could be considered. Calcified granuloma in the right lower lobe. Mild mosaic attenuation, compatible with air trapping. Pleural spaces: Trace pleural effusions and/or pleural thickening. Heart: No cardiomegaly. No significant pericardial effusion. Lymph nodes: No abnormally enlarged lymph nodes. Gallbladder and bile ducts: Cholecystectomy. Bones/joints: No acute fracture. Soft tissues: Unremarkable. IMPRESSION: 1. The pulmonary arteries are poorly opacified such that evaluation of the peripheral pulmonary arteries is considered nondiagnostic (much of the contrast is in a systemic arterial phase). Otherwise, no evidence of a large central pulmonary embolus. 2. Mild reticular and ground-glass type opacities in the lungs, greater in the basilar regions. Findings are likely at least in part due to linear atelectasis/fibrosis, but mild edema or pneumonitis could be considered. 3. Trace pleural effusions and/or pleural thickening. 4. Other findings as detailed in the body of the report.
--- NOTE | 2022-09-15 08:03 | HMH.PHAINT1 ---
Pharmacy Intervention Comments: Medication reconciliation completed for patient using external fill history and discharge summary from previous visit.
--- NOTE | 2022-09-15 08:47 | HMH.ITSTN ---
I called nurse Leah she said when patient stands she becomes tachycardic-- she is currently having a consult with her Dr she will call me back when pt is ready
--- NOTE | 2022-09-15 09:33 | EXP.GYNCONS ---
History of Present Illness *Admission Date: 09/14/22 *History of present illness: Ms. Erendira Ahmadi is a 37-year-old female [id number] with a past medical history of Chronic Hypertension, Gestational DM, Sjogrens, Migraine Headaches, Anxiety Disorder. She is 6 days s/p normal . She was taking Labetalol q 8 hours during - 200 mg, 300mg and then 200 mg. She was delivered at 37w2d for CHTN in . While in Labor her BP became severe range and labile and she was started on mag sulfate for preeclampsia. She also received IV Labetalol and PO Procardia to help stablize BP. She received mag sulfate during labor and for 24 hours . Mag level was therapeutic during treatment. Blood pressures continued to be labile after delivery. Cardiology was consulted. She underwent an echocardiogram that showed normal LVSF and preserved EF. She was treated with Bisoprolol at discharge with follow-up in the Cardiology clinic. She presented to [facility] on 09/14/22 with complaints of colicky suprapubic pain, nausea, headache, painful and frequent urination that has worsened over a 3-day period since being discharged from the facility on 09/11/2022. UA demonstrated positive Nitrates. Urine culture was sent and she was given Rocephin 1 gram in ED. Upon evaluation in the ER blood pressure was 204/128. Hgb was 9.4. Platelets were 384. AST is 136, ALT 100. Chest Xray showed no acute cardiopulmonary findings. TVUS was performed showed endometrial fluid and hematoma causing abnormal thickening of the endometrial stripe. Ovaries within normal limits. The patient was placed on a Nipride gtt. Patient examined at bedside this morning. She states suprapubic pain is much better. Headache has resolved. She states her current pad is saturated but she hasn't changed it since her visit to the ED last night. She is formula feeding. She states she feels better today. Denies fever/chills, chest pain and shortness of breath. Admits to continued nausea. Admits to improvement in bilateral lower extremity swelling. She had bilateral lower extremity swelling in and during labor and . [facility] Disclaimer: The information contained in this section may have been updated after the patient was seen, as this information can be updated by other users. Medical History 37 weeks gestation of Acute blood loss anemia Atopic dermatitis Cervical strain, acute Chronic hypertension affecting Gestational diabetes Lumbar transverse process fracture Maternal obesity affecting , antepartum Nausea and vomiting No significant past medical history Obesity Partial thickness burn of back Status post normal vaginal delivery Family History Other No significant family history Social History Smoking Status: Never smoker alcohol intake: never substance use type: denies use current occupational status: unemployed Travel in the last 8 weeks: None household members: family housing: house caffeine: Yes Review of Systems Review of Systems Review of systems:: pertinent systems reviewed and negative unless documented below Constitutional Constitutional: Reports headache(s) (resolved) and Denies weakness ENT Ears, Nose, Mouth, and Throat: Reports headache(s) (resolved) *Cardiovascular Cardiovascular: Denies chest pain and Denies dyspnea *Respiratory Respiratory: Denies dyspnea *Gastrointestinal Gastrointestinal: Reports abdominal pain (suprapubic pain improved) and Reports nausea *Musculoskeletal Musculoskeletal: Denies numbness and Reports other (lower extremity swelling) *Neurologic Neurologic: Reports headache(s) (resolved), Denies numbness and Denies weakness Meds Home Medications and Allergies Home Medications Medication Instructions
--- NOTE | 2022-09-15 10:53 | EXP.CARD.CON ---
History of Present Illness History of Present Illness Consult date: 09/15/22 Requesting physician: Al Oconnell Chief complaint: Lower abdominal pain, nausea, headache, elevated blood pressure, shortness Additional Medical History:: Significant past medical history Chronic hypertension Gestational diabetes mellitus Sjogren's Migraine headaches Anxiety disorder 37-week gestation of History of present illness: 37-year-old white female presented to emergency department on 09/14/2022 with complaints of mid lower abdominal pain, nausea, headache, lower extremity edema and elevated blood pressure x3 days since being discharged from this facility on 09/11/2022. Patient was admitted on 09/09/2022 for vaginal delivery. During hospitalization patient suffered from elevated blood pressure readings and was consulted by cardiology. She underwent an echocardiogram which showed normal left ventricular size, preserved left ventricular systolic function, estimated ejection fraction 55% with no regional wall motion abnormalities, diastolic parameters are within normal range. Patient was treated with bisoprolol and discharged home with follow-up in the cardiology clinic. Upon initial evaluation in the ER blood pressure was noted to be 204/128. Labs as follow: Hemoglobin 9.4, platelets 384, AST 136, ALT 100. Chest x-ray was negative for acute cardiopulmonary findings. Transvaginal ultrasound showed endometrial fluid and hematoma causing abnormal thickening of the endometrial stripe. Urinalysis showed trace protein 2+ leukoesterase, 3-5 WBCs and was positive for nitrates. Patient was started on night pride drip and admitted for hypertensive emergency. Upon examination patient is resting comfortably, denies chest pain. Reports mild shortness of air that has improved since admission. Patient is tachycardic with rate in the 120s. Blood pressure is controlled on night pride drip. A.m. labs reviewed. CTA chest pending. [facility] Disclaimer: The information contained in this section may have been updated after the patient was seen, as this information can be updated by other users. Medical History 37 weeks gestation of Acute blood loss anemia Atopic dermatitis Cervical strain, acute Chronic hypertension affecting Gestational diabetes Lumbar transverse process fracture Maternal obesity affecting , antepartum Nausea and vomiting No significant past medical history Obesity Partial thickness burn of back Status post normal vaginal delivery Family History Other No significant family history Social History Smoking Status: Never smoker alcohol intake: never substance use type: denies use current occupational status: unemployed Travel in the last 8 weeks: None household members: family housing: house caffeine: Yes Review of Systems Constitutional Constitutional: Reports headache(s) (resolved) and Denies weakness ENT Ears, Nose, Mouth, and Throat: Reports headache(s) (resolved) *Cardiovascular Cardiovascular: Reports dyspnea and Reports palpitations *Respiratory Respiratory: Reports dyspnea *Musculoskeletal Musculoskeletal: Denies numbness *Neurologic Neurologic: Reports headache(s) (resolved), Denies numbness and Denies weakness Endocrine Endocrine: Reports palpitations Exam Data for Last 24 hours Vital signs and Labs for Last 24 Hours: Temp Pulse Resp BP Pulse Ox 98.0 F 137 H 17 109/50 L 94 L 09/15/22 08:00 09/15/22 08:00 09/15/22 08:00 09/15/22 08:00 09/15/22 08:00 Laboratory Results - last 24 hr 09/14/22 16:40: Urine Color Yellow, Urine Appearance Clear, Urine pH 7.0, Ur Specific [place] 1.010, Urine Protein Trace, Urine Glucose (UA) Negative, Urine Ketones Negative, Urine Blood 3+, Urine Nitrate Positive, U
--- NOTE | 2022-09-15 11:13 | PC.NURSE ---
pt noted to still have vaginal bleeding, pt is 6 days post . pt to start pad count today.
--- NOTE | 2022-09-15 14:50 | PC.NURSE ---
1430 spoke with Jacquie to clarify metoprolol dosage. max dose of metoprolol tartrate is 450mg per 24 hrs. per jacquie, do not give now dose of 100mg metoprolol tartrate, just start new order of 100mg q6h at 1700 as ordered.
--- NOTE | 2022-09-15 15:12 | PC.NURSE ---
late entry: start of shift nitroprusside drip at 3mcg decreased to 2mcg at 1030 (bp 99/52) decreased to 1mcg at 1500 (bp 119/65)
--- NOTE | 2022-09-15 16:12 | PC.NURSE ---
received notification that pt is c/o headache at 1600, 1613 rounded on pt to address REEVES, pt sleeping at this time.
--- NOTE | 2022-09-15 17:39 | EXP.ACUTE.PN ---
Subjective *Date: 09/15/22 *Time: 17:39 Interval history: States she feels somewhat better today. Denies any nausea or vomiting. Wanting to go home to see her baby, informed her that we need to have her on a stable regimen before we can do that. Tolerating p.o. intake. No confusion. Mother at bedside. Medical Exam Vital signs and Labs for Last 24 Hours: Vital Signs Temp Pulse Pulse Pulse Resp BP BP 09/15/22 14:24 94 H 20 115/58 L 09/15/22 13:00 81 20 115/64 09/15/22 11:00 87 20 135/69 09/15/22 12:00 94 H 09/15/22 16:00 93 H 20 133/98 H 09/15/22 14:00 102 H 20 155/100 H 09/15/22 12:00 89 22 125/78 09/15/22 12:00 98.1 F 09/15/22 08:30 140 H 09/15/22 10:00 95 H 16 09/15/22 09:00 115 H 16 09/15/22 08:00 137 H 17 09/15/22 08:00 136 H 09/15/22 08:00 98.0 F 09/15/22 06:57 110 H 09/14/22 22:00 120 H 09/15/22 06:00 131 H 20 09/15/22 04:00 98.2 F 122 H 15 09/15/22 00:00 98.2 F 16 09/14/22 23:00 121 H 20 175/112 H 09/15/22 04:00 09/15/22 03:00 125 H 09/14/22 22:45 98.2 F 119 H 20 180/122 H 09/15/22 03:00 132 H 16 09/15/22 01:00 134 H 09/15/22 02:00 126 H 09/15/22 00:00 121 H 09/14/22 22:05 99.0 F 128 H 18 154/110 H 09/14/22 21:15 128 H 154/110 H 09/14/22 21:00 121 H 156/107 H 09/14/22 20:52 124 H 148/111 H 09/14/22 20:33 149/105 H 09/14/22 20:15 128 H 142/101 H 09/14/22 19:36 133 H 156/105 H 09/14/22 19:31 149 H 92/70 L 09/14/22 19:22 134 H 150/94 H 09/14/22 19:07 142 H 22 182/113 H 09/14/22 18:59 134 H 22 168/103 H 09/14/22 18:47 135 H 19 181/104 H 09/14/22 18:30 123 H 15 160/110 H 09/14/22 18:14 136 H 204/128 H 09/14/22 17:41 129 H 193/127 H BP Pulse Ox 09/15/22 14:24 96 09/15/22 13:00 95 09/15/22 11:00 93 L 09/15/22 12:00 09/15/22 16:00 96 09/15/22 14:00 95 09/15/22 12:00 94 L 09/15/22 12:00 09/15/22 08:30 93 L 09/15/22 10:00 115/77 99 09/15/22 09:00 101/42 L 96 09/15/22 08:00 109/50 L 94 L 09/15/22 08:00 09/15/22 08:00 09/15/22 06:57 09/14/22 22:00 09/15/22 06:00 155/75 H 98 09/15/22 04:00 164/75 H 94 L 09/15/22 00:00 09/14/22 23:00 95 09/15/22 04:00 93 L 09/15/22 03:00 94 L 09/14/22 22:45 96 09/15/22 03:00 128/72 93 L 09/15/22 01:00 134/82 91 L 09/15/22 02:00 133/70 90 L 09/15/22 00:00 158/108 H 94 L 09/14/22 22:05 09/14/22 21:15 09/14/22 21:00 09/14/22 20:52 09/14/22 20:33 09/14/22 20:15 94 L 09/14/22 19:36 93 L 09/14/22 19:31 96 09/14/22 19:22 96 09/14/22 19:07 97 09/14/22 18:59 97 09/14/22 18:47 99 09/14/22 18:30 99 09/14/22 18:14 100 09/14/22 17:41 100 Intake and Output 09/15/22 09/15/22 09/15/22 07:59 15:59 23:59 Intake Total 318.45 / 570.45 252 / 570.45 Output Total 600 / 600 Balance -281.55 / -29.55 252 / -29.55 Intake: Intake, Total IV Amount 318.45 / 570.45 252 / 570.45 Output: Output, Urine Amount 600 / 600 Other: Number of Unmeasured Voids 0 Weight 104.922 kg Patient Weight 09/15/22 23:59 Weight 104.922 kg Laboratory Results - last 24 hr 09/14/22 16:40: Urine RBC 20-50, Urine WBC 3-5, Ur Squamous Epith Cells Occasional, Urine Bacteria None 09/14/22 16:40: Troponin I < 0.01 09/14/22 16:40: NT-Pro-B Natriuret Pep 411 H 09/14/22 16:40: Lactate Dehydrogenase 368 09/14/22 16:40: Fibrinogen 479 H 09/14/22 16:40: PT 9.4 L, INR 0.86 L, APTT 21.0 L 09/14/22 19:46: SARS-CoV-2 (PCR) Not detected, Influenza A Untype (PCR) Not detected, Influenza Type B (PCR) Not detected 09/14/22 21:00: Troponin I < 0.01 09/14/22 23:20: WBC 8.2, RBC 3.52 L, Hgb 9.1 L, Hct 27.4 L, MCV 78.0 L, MCH 25.8 L, MCHC 33.1, RDW
--- NOTE | 2022-09-15 21:28 | PC.NURSE ---
She is A&Ox4. She reported pain in her lower abdomen and requested medication. She rated her pain 4/10. Hospitalist notified and order obtained for pyridium. She has been voiding per [facility]. Potty hat placed in [facility] and family and patient educated to use call light to notify staff when she has voided so it can be measured. Her mother is at the bedside with her. She states she has bleed through 1 pad today. She refuses her SCDS. Continues on RA. She reports her last BM was today. She continues on the nipride gtt at this time.
[2022-09-16] VITALS (9 sets, daily range): BP systolic 93–170; BP diastolic 53–117; PULSE 70–112; RESP 18–20; TEMP 36.4–37.3; O2SAT 92–99; BMI 37.1
--- NOTE | 2022-09-16 00:50 | PC.NURSE ---
Nipride gtt off at 0045. Orders from Dr. Marie to hold am dose of metoprolol if HR <80.
--- NOTE | 2022-09-16 06:12 | PC.NURSE ---
Pt has c/o burning with urination, constipation and discomfort to lower abdominal area, pelvic area. Pt has requested pain medication t/o shift. She has also requested medication for nausea. Nipride gtt was restarted at 0200 due to hypertension. It was started @ 0.3 mcg/kg/min and titrated per protocol. Pt has been up to [facility] this shift. Has had 4 changes of pads. Pt states bleeding is unchanged. VS currently stable at this time. NSR on telemetry. Mother is at bedside.
[2022-09-16 06:35] LABS: Basophils % 0.6 % (0.1-2.0); Eosinophils # 0.3 K/mm3 (0.0-0.4); Eosinophils % 4.4 % (0.1-12.0); Hematocrit 23.9 % (37.0-47.0); Hemoglobin 8.2 g/dL (12.2-16.2); Lymphocytes # 1.9 K/mm3 (0.7-4.5); Lymphocytes % 30.5 % (10-50); Mean Corpuscular HGB Conc 34.2 g/dL (31.8-35.4); Mean Corpuscular Hemoglobin 26.6 pg (27.0-31.2); Mean Corpuscular Volume 77.6 fl (81-99); Mean Platelet Volume 8.4 fl (7.4-10.4); Monocytes # 0.3 K/mm3 (0.1-1.0); Monocytes % 4.7 % (1.7-9.3); Neutrophils # 3.8 K/mm3 (1.8-7.8); Neutrophils % 59.9 % (37.0-80.0); Platelet Count 397 K/mm3 (142-424); Red Blood Count 3.08 M/mm3 (4.20-5.40); Red Cell Distribution Width 15.6 % (11.5-17.5); White Blood Count 6.4 K/mm3 (4.8-10.8)
[2022-09-16 06:42] LABS: Alanine Aminotransferase 88 U/L (12-78); Albumin Level 3.3 g/dl (3.5-5.0); Albumin/Globulin Ratio 1.1 (1.1-1.8); Alkaline Phosphatase 234 U/L (38-126); Aspartate Amino Transferase 93 U/L (14-36); Bilirubin,Total 0.3 mg/dl (0.2-1.3); Blood Urea Nitrogen 6 mg/dl (7-17); Calcium 8.4 mg/dl (8.4-10.2); Carbon Dioxide 25 mmol/L (22.0-30.0); Chloride 105 mmol/L (98-107); Creatinine Clearance Estimated 182 mL/min (50-200); Estimated Glomerular Filt Rate 94 ml/min (>60); GFR (African American) 114 ML/MIN (>60); Globulin 2.9 g/dL (1.3-3.2); Glucose 133 mg/dl (74-100); Magnesium 1.8 mg/dl (1.6-2.3); Sodium 134 mmol/L (136-145); Total Protein,Serum 6.2 g/dl (6.3-8.2)
[2022-09-16 07:00] LABS: Anion Gap 7.9 mEq/L (5-15); Potassium 3.9 mmoL/L (3.5-5.1)
--- NOTE | 2022-09-16 10:43 | P.PN_ITS ---
Subjective Subjective Date: 09/16/22 Time: 08:00 Principal diagnosis: Hypertensive emergency Interval history: Patient sitting up in bed denies chest pain or shortness of breath. Reports feeling good and would like to go home. Currently off drip. Currently normal sinus rhythm rate 89, blood pressure 125/75. Exam Data for Last 24 hours Vital signs and Labs for Last 24 Hours: Temp Pulse Resp BP Pulse Ox 97.6 F 82 20 93/54 L 99 09/16/22 08:00 09/16/22 09:10 09/16/22 08:00 09/16/22 08:00 09/16/22 09:10 Laboratory Results - last 24 hr 09/16/22 06:11: WBC 6.4 D, RBC 3.08 L, Hgb 8.2 L, Hct 23.9 L, MCV 77.6 L, MCH 26.6 L, MCHC 34.2, RDW 15.6, Plt Count 397, MPV 8.4, Neut % (Auto) 59.9, Lymph % (Auto) 30.5, [place] % (Auto) 4.7, Eos % (Auto) 4.4, Baso % (Auto) 0.6, Neut # (Auto) 3.8, Lymph # (Auto) 1.9, [place] # (Auto) 0.3, Eos # (Auto) 0.3, Baso # (Auto) 0.0 09/16/22 06:11: Sodium 134 L, Potassium 3.9, Chloride 105, Carbon Dioxide 25, Anion Gap 7.9, BUN 6 L, Creatinine 0.70, Estimated Creat Clear 182, Estimated GFR 94, Est GFR ( Amer) 114, Glucose 133 H, Calcium 8.4, Magnesium 1.8, Total Bilirubin 0.3, AST 93 H, ALT 88 H, Alkaline Phosphatase 234 H, Total Protein 6.2 L, Albumin 3.3 L, Globulin 2.9, Albumin/Globulin Ratio 1.1 I & O for Last 24 hours: Intake & Output 09/13/22 09/14/22 09/15/22 09/16/22 23:59 23:59 23:59 23:59 Intake Total 61.176 / 61.176 2393.45 / 2393.45 145 / 145 Output Total 100 / 100 600 / 800 500 / 500 Balance -38.824 / -38.824 1793.45 / 1593.45 -355 / -355 Weight 220 lb 231 lb 5 oz 231 lb 0.711 oz Microbiology Reports for the Last 24 Hours: Microbiology 09/14/22 16:40 Urine,Clean Catch Urine Culture - Preliminary Progress Note: A&P Assessment and plan (1) Hypertensive emergency: Status: Acute (2) Migraine headache: Status: Acute (3) UTI (urinary tract infection): Problem details: Received 1 gram Rocephin IV Status: Acute (4) Sjogren's disease: Status: Acute Assessment and Plan Assessment and Plan for All Diagnoses:: Hypertensive emergency -Blood pressure currently well controlled on Nipride drip. -Currently on Nipride and and well controlled. Try to wean from drip 09/16/2022-blood pressure is stable off drip. Pressure 125/75. We will change medication to metoprolol succinate 150 mg p.o. twice daily per Dr. Marie. Sinus tachycardia -CTA chest-pulmonary arteries are poorly opacified such that evaluation of the peripheral pulmonary arteries is considered nondiagnostic.? Otherwise no evidence of large central pulmonary emboli noted.? Mild reticular and ground glass type opacities in the lungs, greater in the basilar regions.? Findings are likely at least in part due to linear atelectasis/fibrosis, but mild edema or pneumonitis could be considered.? Trace pleural effusions and/or pleural thickening noted. 09/16/2022-resolved. Normal sinus rhythm rate 89 CV summary: CV stable for discharge. Please send patient home on metoprolol succinate 150 mg twice daily. Patient needs to keep a twice a day blood pressure log and follow-up in office in 1 week, sooner as needed.
[2022-09-16 10:49] LABS: Microscopic, Urine URINE MICROSCOPIC (MICROSCOPIC)
--- NOTE | 2022-09-16 11:40 | EXP.ACUTE.PN ---
Subjective *Date: 09/16/22 *Time: 11:40 Interval history: Patient resting comfortably this morning. She states abdominal pain has resolved. Still had some burning with urination. Denies headaches. States she feels better and would like to go home. She admits she changed her pad twice yesterday and admits the bleeding seems normal. Denies fever/chill, chest pain and shortness of breath. Admits lower extremity swelling has also improved. Medical Exam Vital signs and Labs for Last 24 Hours: Vital Signs Temp Pulse Pulse Resp BP Pulse Ox 09/16/22 09:10 82 99 09/16/22 08:00 82 20 93/54 L 99 09/16/22 08:00 97.6 F 09/16/22 08:00 97.6 F 85 20 97/53 L 97 09/16/22 05:00 110 H 09/16/22 06:00 98 H 20 108/81 L 92 L 09/16/22 04:00 97.9 F 112 H 18 165/108 H 95 09/16/22 02:00 94 H 20 164/117 H 93 L 09/16/22 00:00 99.1 F 92 H 137/89 96 09/16/22 00:00 90 09/15/22 20:00 100 H 09/15/22 20:00 98.8 F 101 H 20 156/103 H 95 09/15/22 22:00 93 H 18 115/56 L 93 L 09/15/22 21:24 94 L 09/15/22 16:00 98 H 94 L 09/15/22 18:00 94 H 20 150/96 H 96 09/15/22 16:00 96 H 09/15/22 16:00 98.2 F 09/15/22 14:24 94 H 20 115/58 L 96 09/15/22 13:00 81 20 115/64 95 09/15/22 12:00 94 H 09/15/22 16:00 93 H 20 133/98 H 96 09/15/22 14:00 102 H 20 155/100 H 95 09/15/22 12:00 89 22 125/78 94 L 09/15/22 12:00 98.1 F Intake and Output 09/15/22 09/16/22 09/16/22 23:59 07:59 15:59 Intake Total 1823 / 2393.45 25 / 145 120 / 145 Output Total 0 / 800 500 / 500 0 / 500 Balance 1823 / 1593.45 -475 / -355 120 / -355 Intake: Intake, Oral Amount 120 / 120 120 / 120 Intake, Total IV Amount 1703 / 2273.45 25 / 25 Ceftriaxone Sodium 1 gm In 0.9 50 / 50 % Sodium Chloride 50 ml @ 100 mls/hr IV 1300 KAT Rx#:[id number] Nitroprusside Sodium 50 mg In 1401 / 1401 25 / 25 Dextrose 5 % in Water 250 ml @ 0.3 MCG/KG/MIN 9.053 mls/hr IV .Q24H KTA Rx#:[id number] Output: Output, Urine Amount 0 / 800 500 / 500 0 / 500 Other: Number of Voids 0 Number of Unmeasured Voids 1 1 Weight 231 lb 0.711 oz Patient Weight 09/16/22 23:59 Weight 231 lb 0.711 oz Laboratory Results - last 24 hr 09/16/22 06:11: WBC 6.4 D, RBC 3.08 L, Hgb 8.2 L, Hct 23.9 L, MCV 77.6 L, MCH 26.6 L, MCHC 34.2, RDW 15.6, Plt Count 397, MPV 8.4, Neut % (Auto) 59.9, Lymph % (Auto) 30.5, [place] % (Auto) 4.7, Eos % (Auto) 4.4, Baso % (Auto) 0.6, Neut # (Auto) 3.8, Lymph # (Auto) 1.9, [place] # (Auto) 0.3, Eos # (Auto) 0.3, Baso # (Auto) 0.0 09/16/22 06:11: Sodium 134 L, Potassium 3.9, Chloride 105, Carbon Dioxide 25, Anion Gap 7.9, BUN 6 L, Creatinine 0.70, Estimated Creat Clear 182, Estimated GFR 94, Est GFR ( Amer) 114, Glucose 133 H, Calcium 8.4, Magnesium 1.8, Total Bilirubin 0.3, AST 93 H, ALT 88 H, Alkaline Phosphatase 234 H, Total Protein 6.2 L, Albumin 3.3 L, Globulin 2.9, Albumin/Globulin Ratio 1.1 I & O for Labs for Last 24 Hours: Intake & Output 09/13/22 09/14/22 09/15/22 09/16/22 23:59 23:59 23:59 23:59 Intake Total 61.176 / 61.176 2393.45 / 2393.45 145 / 145 Output Total 100 / 100 600 / 800 500 / 500 Balance -38.824 / -38.824 1793.45 / 1593.45 -355 / -355 Weight 220 lb 231 lb 5 oz 231 lb 0.711 oz Microbiology Reports for the Last 24 Hours: Microbiology 09/14/22 16:40 Urine,Clean Catch Urine Culture - Preliminary Head: Present atraumatic and normocephalic ENT: Present normal exam Neck: Present normal inspection and full ROM Respiratory: Present CTA bilaterally and normal respiratory effort Cardiac: Present Reg Rate and Rhythm GI: Present soft and normal bowel sounds; Absent distention, tenderness, guarding or rebound Rectal (female): Present deferred (female): Present deferred Extremities: Present full ROM and edema (+1 bilateral lower extremity edema)
[2022-09-16 11:55] LABS: Appearance,Urine CLEAR (Clear); Bilirubin,Urine Negative (Negative); Blood, Urine 3+ (Negative); Color,Urine ORANGE (Yellow); Glucose,Urine (UA) Negative (Negative); Ketones,Urine Negative (Negative); Leukocyte Esterase,Urine 2+ (Negative); Nitrate,Urine POSITIVE (Negative); PH,Urine 6.5 (5.0-8.5); Protein,Urine 1+ (Negative); Specific Gravity, Urine <= 1.005 (1.005-1.030)
--- NOTE | 2022-09-16 12:05 | PC.NURSE ---
1130 notified Jacquie that pt bp was 144/93 after ambulating off unit, pt also requesting to go home. new orders recheck bp. in 30mins 1200 notified Jacquie pt bp 170/90 manually with hr in the mid 90's pt did not received 1100 dose of metoprolol bc order was cancelled. new med order of metoprolol succinate 150mg bid does not start until 2100. jacquie marie to make rounds on pt again, potential for new medications to be added.
[2022-09-16 12:10] LABS: Bacteria,Urine 1+ /lpf; RBC,Urine 20-50 #/hpf (0-3)
--- NOTE | 2022-09-16 13:53 | EXP.DC.SUM ---
General Admission date:: 09/14/22 HPI HPI HPI: Ms. Erendira Ahmadi is a 37-year-old female [id number] with a past medical history of Chronic Hypertension, Gestational DM, Sjogrens, Migraine Headaches, Anxiety Disorder. She is 6 days s/p normal . She was taking Labetalol q 8 hours during - 200 mg, 300mg and then 200 mg. She was delivered at 37w2d for CHTN in . While in Labor her BP became severe range and labile and she was started on mag sulfate for preeclampsia. She also received IV Labetalol and PO Procardia to help stablize BP. She received mag sulfate during labor and for 24 hours . Mag level was therapeutic during treatment. Blood pressures continued to be labile after delivery. Cardiology was consulted. She underwent an echocardiogram that showed normal LVSF and preserved EF. She was treated with Bisoprolol at discharge with follow-up in the Cardiology clinic. She presented to [facility] on 09/14/22 with complaints of colicky suprapubic pain, nausea, headache, painful and frequent urination that has worsened over a 3-day period since being discharged from the facility on 09/11/2022. UA demonstrated positive Nitrates. Urine culture was sent and she was given Rocephin 1 gram in ED. Upon evaluation in the ER blood pressure was 204/128. Hgb was 9.4. Platelets were 384. AST is 136, ALT 100. Chest Xray showed no acute cardiopulmonary findings. TVUS was performed showed endometrial fluid and hematoma causing abnormal thickening of the endometrial stripe. Ovaries within normal limits. The patient was placed on a Nipride gtt. Patient examined at bedside this morning. She states suprapubic pain is much better. Headache has resolved. She states her current pad is saturated but she hasn't changed it since her visit to the ED last night. She is formula feeding. She states she feels better today. Denies fever/chills, chest pain and shortness of breath. Admits to continued nausea. Admits to improvement in bilateral lower extremity swelling. She had bilateral lower extremity swelling in and during labor and . Hospital Course Hospital Course Hospital Course: Admitted 5 days for abdominal pain bilateral lower extremity edema and hypertensive emergency BP 200/100. Patient was started on nitro drip. Also having suprapubic pain, nausea, headache, pain with frequent urination. Blood pressure decreased, patient started on metoprolol titrate 100 mg every 6 hours... CT PE negative. Transthoracic echo normal. Transaminases improving started on Rocephin for urinary tract infection, still having symptoms of dysuria. Started on Pyridium with mild improvement. Transition to Levaquin 750 mg. Will discharge with follow-up with obstetricians. Will discharge to follow-up with cardiology. Labs still pending including: Haptoglobin, LDH, Fibrinogen, PT, PTT, Urine Fraction Metanephrine and catecholamines, anticardiolipin antibodies Exam Data for Last 24 hours Vital signs and Labs for Last 24 Hours: Temp Pulse Resp BP Pulse Ox 97.9 F 94 H 18 170/90 H 96 09/16/22 12:00 09/16/22 12:00 09/16/22 12:00 09/16/22 12:23 09/16/22 12:00 Laboratory Results - last 24 hr 09/16/22 06:11: WBC 6.4 D, RBC 3.08 L, Hgb 8.2 L, Hct 23.9 L, MCV 77.6 L, MCH 26.6 L, MCHC 34.2, RDW 15.6, Plt Count 397, MPV 8.4, Neut % (Auto) 59.9, Lymph % (Auto) 30.5, [place] % (Auto) 4.7, Eos % (Auto) 4.4, Baso % (Auto) 0.6, Neut # (Auto) 3.8, Lymph # (Auto) 1.9, [place] # (Auto) 0.3, Eos # (Auto) 0.3, Baso # (Auto) 0.0 09/16/22 06:11: Sodium 134 L, Potassium 3.9, Chloride 105, Carbon Dioxide 25, Anion Gap 7.9, BUN 6 L, Creatinine 0.70, Estimated Creat Clear 182, Estimated GFR 94, Est GFR ( Amer) 114, Glucose 133 H, Calcium 8.4, Magnesium 1.8, Total Bilirubin 0.3, AST 93 H, ALT 88 H, Alkaline Phosphatase 234 H, Total Protein 6.2 L, Albumin 3.3 L, Globulin 2.9, Albumin/Globulin Ratio 1.1 09/16/22 10:30: Urine [place]
--- NOTE | 2022-09-16 15:16 | PC.NURSE ---
1515 during discharge process with pharmacy, family had questions regarding medications that were called in. per jaspal in cardiology pt is to be prescribed metoprolol succinate 150mg bid (order was written by hospitalist for metoprolol succinate 150mg daily)with a 30 day supply. this RN contacted [facility] pharmacy and called in new RX for metoprolol succinate 150mg bid for 30 days supply with no refills.
--- NOTE | 2022-09-16 15:33 | HMH.PHAINT1 ---
Pharmacy Intervention Comments: Met with patient and mother at bedside to discuss discharge medications. Counseled on new, changed, and continued medications. Overviewed indications, possible adverse effects, and mitigation strategies. Clarified that metoprolol dose is to be 150 mg twice daily. Patient and family verbalized understanding of the information provided and had no questions or concerns at this time.
[2022-09-16 16:12] LABS: Anti-Cardio Antibody IgM <9 MPL U/mL (0-12); Anti-Cardiolipin Antibody IgG <9 GPL U/mL (0-14); Anticardiolipin Ab,IgA,Qn <9 APL U/mL (0-11)
[2022-09-16 17:12] LABS: Haptoglobin 290 mg/dL (33-278)
--- NOTE | 2022-09-17 14:56 | CARE MANAGER ---
Spoke with patient for post-discharge follow-up phone interview, patient states that her blood pressure is still elevated. She is calling Dr. Yang office for a follow-up appointment.
== END 2022-09-16 15:48 | disposition home or self-care (01) | DRG 776 ==
LOC: ER 19:59 → 2ND 20:55
PROVIDERS: Internal Medicine; Nurse Practitioner Family; Admitting Provider Internal Medicine Adolescent Medicine; Emergency Provider Emergency Medicine; Visit Provider Student in an Organized Health Care Education/Training Program
DX: O10.93 Unspecified pre-existing hypertension complicating the puerperium (principal); I16.1 Hypertensive emergency; N39.0 Urinary tract infection, site not specified; O86.20 Urinary tract infection following delivery, unspecified; R00.0 Tachycardia, unspecified; G43.909 Migraine, unspecified, not intractable, without status migrainosus; O90.81 Anemia of the puerperium; O90.89 Other complications of the puerperium, not elsewhere classified; M35.00 Sjogren syndrome, unspecified; O99.345 Other mental disorders complicating the puerperium; F53.0 Postpartum depression
CPT/HCPCS: 36415; 70450; 71045; 71275; 74176; 76856; 80053; 81001; 83010; 83615; 83735; 83880; 84439; 84443; 84484; 85025; 85384; 85610; 85730; 86147; 87086; 87088; 87186; 93005; 93308; 99285; C9803; J0696; J1335; J2405; Q9967; U0003; U0005

== ENCOUNTER 2022-10-15 10:17 | Outpatient (CLI) | payer OTHER, SELFPAY ==
[2022-10-15 10:27] VITALS: BMI 32.8
[2022-10-15 10:50] VITALS: BP 153/100; PULSE 89; RESP 18; O2SAT 95
[2022-10-15 10:54] LABS: Basophils # 0.1 K/mm3 (0-0.2); Basophils % 0.6 % (0.1-2.0); Eosinophils # 0.1 K/mm3 (0.0-0.4); Eosinophils % 1.5 % (0.1-12.0); Hematocrit 34.6 % (37.0-47.0); Hemoglobin 11.4 g/dL (12.2-16.2); Lymphocytes # 1.8 K/mm3 (0.7-4.5); Lymphocytes % 24.5 % (10-50); Mean Corpuscular Hemoglobin 25.2 pg (27.0-31.2); Mean Corpuscular Volume 76.2 fl (81-99); Mean Platelet Volume 8.4 fl (7.4-10.4); Monocytes # 0.5 K/mm3 (0.1-1.0); Monocytes % 7.2 % (1.7-9.3); Neutrophils # 4.9 K/mm3 (1.8-7.8); Neutrophils % 66.2 % (37.0-80.0); Platelet Count 469 K/mm3 (142-424); Red Blood Count 4.54 M/mm3 (4.20-5.40); Red Cell Distribution Width 15.8 % (11.5-17.5); White Blood Count 7.3 K/mm3 (4.8-10.8)
[2022-10-15 11:08] LABS: Alanine Aminotransferase 27 U/L (12-78); Albumin Level 5.1 g/dl (3.5-5.0); Albumin/Globulin Ratio 1.4 (1.1-1.8); Alkaline Phosphatase 122 U/L (38-126); Anion Gap 12.5 mEq/L (5-15); Aspartate Amino Transferase 33 U/L (14-36); Bilirubin,Total 0.5 mg/dl (0.2-1.3); Blood Urea Nitrogen 15 mg/dl (7-17); Calcium 9.5 mg/dl (8.4-10.2); Carbon Dioxide 30 mmol/L (22.0-30.0); Chloride 101 mmol/L (98-107); Creatinine Clearance Estimated 59 mL/min (50-200); Estimated Glomerular Filt Rate 30 ml/min (>60); GFR (African American) 36 ML/MIN (>60); Globulin 3.7 g/dL (1.3-3.2); Glucose 126 mg/dl (74-100); Potassium 3.5 mmoL/L (3.5-5.1); Sodium 140 mmol/L (136-145); Total Protein,Serum 8.8 g/dl (6.3-8.2)
[2022-10-15 11:12] VITALS: BP 199/110; PULSE 88; RESP 18
[2022-10-15 11:20] VITALS: BP 199/110; PULSE 86; RESP 18
--- NOTE | 2022-10-15 11:25 | PC.NURSE ---
1125-called and left a message with saurav in cardiology office about pt's elevated blood pressure; will wait on new orders
--- NOTE | 2022-10-15 11:30 | PC.NURSE ---
1130-notified by saurav in cardiology that crystal rosales aprn will call and speak to patient later today.
[2022-10-15 11:50] VITALS: BP 191/116; PULSE 89; RESP 18
--- NOTE | 2022-10-15 12:02 | PC.NURSE ---
1202-called 's office and left a message with mendez and ; she is going to call and call rn back.
--- NOTE | 2022-10-15 12:03 | PC.NURSE ---
1203-mendez called back from 's office with new orders;phenergan 12.5mg iv and clonidine 0.1mg po once.
[2022-10-15 12:15] VITALS: BP 173/111; PULSE 91; RESP 18
[2022-10-15 12:36] VITALS: BP 184/110; PULSE 92; RESP 18; O2SAT 100
== END 2022-10-15 12:36 | disposition home or self-care (01) ==
LOC: INF 10:19
PROVIDERS: PCP Emergency Medicine; Visit Provider Emergency Medicine
DX: I10 Essential (primary) hypertension (principal)
CPT/HCPCS: 80053; 85025; 96360; 96367; 96375; J0696; J2405

== ENCOUNTER 2022-10-15 12:40 | Inpatient (IN) | payer OTHER, SELFPAY ==
[2022-10-15] VITALS (16 sets, daily range): BP systolic 145–187; BP diastolic 95–127; PULSE 89–126; RESP 11–23; TEMP 36.8–37.3; O2SAT 94–100; BMI 32.8; BMI 32.5
--- NOTE | 2022-10-15 13:00 | PC.NURSE ---
DR. CRAFT NOTIFIED OF ELEVATED B/P
--- NOTE | 2022-10-15 13:04 | PC.NURSE ---
DR. CRAFT AT BEDSIDE
--- NOTE | 2022-10-15 13:11 | PC.NURSE ---
DR. CRAFT SPEAKING WITH DR. RCAFT
--- NOTE | 2022-10-15 13:13 | PC.NURSE ---
1305 CARDIOLOGY NOTIFIED OF PT ARRIVAL
--- NOTE | 2022-10-15 13:14 | PC.NURSE ---
DR CRAFT SPEAKING WITH ANA FARAH
--- NOTE | 2022-10-15 13:15 | PC.NURSE ---
Manual Blood pressure on patient, 180/120
--- NOTE | 2022-10-15 13:17 | HMH.EDGENADL ---
Discharge Plan Disposition Patient Disposition: Admitted As Inpatient Clinical Impressions Clinical Impression: Hypertensive emergency Discharge ED Provider: Galdino Jhaveri General Adult HPI General Chief complaint: Recheck/Abnormal Lab/Rx Stated complaint: Physician Referral High BP Time Seen by Provider: 10/15/22 13:03 Mode of Arrival: Wheelchair Limitations: No Limitations Description of Symptoms (Recalled from ER Triage Doc. by RN): PT SEEN BY DR. SHER THIS AM FOR UTI SYMPTOMS, SENT TO OUTPT INFUSION FOR TREATMENT. PT HYPERTENSIVE, DR. SHER NOTIFIED INSTRUCTED TO SEND PT TO ED FOR WORK-UP. CARDIOLOGY NOTIFIED BY DR. SHER, PT REPORTS N/V/D THAT STARTED YESTERDAY. History of Present Illness HPI narrative: Patient presents with a 2-3 history history of vomiting and diarrhea. She has a history of high blood pressure and yesterday was unable to keep down her blood pressure medication and today her pressure was noted to be elevated for which she was seen at a nearby clinic, clonidine was administered and without significant treatment for which she was then referred here for further evaluation and management. Complains of low back and lower abdominal discomfort. She describes her symptoms as moderate to severe without exacerbating alleviating factors. Is been no fever. She describes her stool as watery. Related Data Home Medications Medication Instructions Recorded Confirmed duloxetine 30 mg capsule,delayed 30 mg PO DAILY Depression 10/15/22 10/15/22 release metoprolol succinate 200 mg 200 mg PO BID High blood pressure 10/15/22 10/15/22 tablet,extended release 24 hr (Toprol XL) phenazopyridine 200 mg tablet 200 mg PO TID UTI 10/15/22 10/15/22 tizanidine 4 mg tablet See Rx Instructions .Route 10/15/22 10/15/22 .COMPLEX Pain Previous Rx's Medication Instructions Recorded sumatriptan succinate 50 mg tablet 50 mg PO Q2H PRN migraine headache 09/11/22 #30 tabs clonazepam 0.5 mg tablet (Klonopin) 0.5 mg PO TID Anxiety #90 tabs 10/15/22 promethazine 25 mg tablet 25 mg PO Q8H PRN nausea and 10/15/22 vomiting #30 tabs tramadol 50 mg tablet 50 mg PO TID Pain #90 tabs 10/15/22 Allergies Allergy/AdvReac Type Severity Reaction Status Date / Time No Known Allergies Allergy Verified 10/15/22:20 [facility] Disclaimer: The information contained in this section may have been updated after the patient was seen, as this information can be updated by other users. Medical History (Updated 10/15/22 @ 17:20 by Raven Rubin RN) 37 weeks gestation of Acute blood loss anemia Atopic dermatitis Cervical strain, acute Chronic hypertension affecting Edema Gestational diabetes Has daytime drowsiness Lumbar transverse process fracture Maternal obesity affecting , antepartum Nausea and vomiting No significant past medical history Obesity Partial thickness burn of back Restless sleeper Screening for genetic disease carrier status Sjogren syndrome with other organ involvement Sleep apnea Snoring Status post normal vaginal delivery Witnessed apneic spells Family History Other No significant family history Social History (Updated 10/15/22 @ 17:20 by Raven Rubin RN) Smoking Status: Never smoker alcohol intake: never substance use type: denies use current occupational status: unemployed Travel in the last 8 weeks: None household members: family housing: house caffeine: Yes ROS Obtained: Yes All systems reviewed & no additional complaints except as documented Physical Exam General General appearance: alert and in no apparent distress Head Head exam: atraumatic and other (Pupils are dilated) ENT ENT exam: Present normal exam Neck Neck exam: Present normal inspection Chest Chest inspection: Present normal inspection Respiratory Respiratory exam: Present normal lung sounds bilaterally Card
[2022-10-15 14:12] LABS: Microscopic, Urine URINE MICROSCOPIC (MICROSCOPIC)
[2022-10-15 14:17] LABS: Appearance,Urine CLEAR (Clear); Blood, Urine Negative (Negative); Color,Urine ORANGE (Yellow); Glucose,Urine (UA) 1+ (Negative); Ketones,Urine 1+ (Negative); Leukocyte Esterase,Urine 1+ (Negative); Nitrate,Urine POSITIVE (Negative); PH,Urine 6.5 (5.0-8.5); Protein,Urine 3+ (Negative); Urobilinogen,Urine >=8.0 EU/dl (0.2)
--- NOTE | 2022-10-15 14:20 | PC.NURSE ---
1420 PT MEDICATED PER EMAR, NO NEEDS AT THIS TIME. FAMILY AT BEDSIDE
--- NOTE | 2022-10-15 14:24 | CT_ITS ---
FINAL REPORT TECHNIQUE: Axial images through the abdomen and pelvis were performed without contrast. This study was performed with techniques to keep radiation doses as low as reasonably achievable, (ALARA). Individualized dose reduction techniques using automated exposure control or adjustment of mA and/or kV according to the patient's size were employed. CLINICAL HISTORY: abd pain, [address] Jhaveri in er said test not needed, do cat scan. COMPARISON: 09/15/2022 FINDINGS: ABDOMEN: The lung bases are clear. The heart size is normal. Limited images of the liver are unremarkable. The patient is status post cholecystectomy. The spleen is normal. No adrenal mass is identified. The aorta is normal in caliber. There is no significant free fluid or adenopathy. There is no nephrolithiasis. There is no hydronephrosis. PELVIS: The appendix is unremarkable. There has been interval decrease in size of the uterus. No mass or fluid collection is identified. There is no localized inflammatory process The urinary bladder is unremarkable. There is no significant free fluid or adenopathy. IMPRESSION: Interval decrease in size of the uterus. No localized inflammatory process. Reviewed, Interpreted and Dictated by Manpreet Dunlap III, MD Transcribed by Leslie Prasad Authenticated and [facility]
--- NOTE | 2022-10-15 14:25 | PC.NURSE ---
ANA ZHAO FROM CARDIOLOGY AT BEDSIDE
[2022-10-15 14:34] LABS: Bilirubin,Urine Negative (Negative)
[2022-10-15 14:41] LABS: Bacteria,Urine Trace /lpf; Squamous Epithelial Cell,Urine Occasional #/hpf (0-5)
--- NOTE | 2022-10-15 14:44 | ECG_ITS ---
APPROVED REPORT Exam: Resting ECG HR:107 bpm ECG Measurements Heart Rate 107 AXES MS 148 P 56 QRSd 89 QRS 26 QT 323 T 68 QTc 386 Conclusion SINUS TACHYCARDIA NONSPECIFIC ST & T-WAVE ABNORMALITY ABNORMAL RHYTHM ECG UNCONFIRMED REPORT Electronically signed by : Linus Olivera MD 10/16/2022 21:52:24
--- NOTE | 2022-10-15 14:44 | EXP.CARD.CON ---
History of Present Illness History of Present Illness Consult date: 10/15/22 Requesting physician: Al Oconnell Consult reason: hypertension Chief complaint: N/V, HTN urgency Additional Medical History:: 1. Hypertension A. Hypertensive emergency with LINDY, 10/15/2022 B. Echocardiogram, 09/10/2022, normal LV size, preserved EF at 55% with no regional wall motion abnormalities. Diastolic parameters normal. Trace MR and TR. C. Limited echocardiogram, 09/15/2022, EF 65% 2. History of Sjogren's disease 3. UTI, 10/15/2022 4. Nausea and vomiting, 10/15/2022 5. History of gestational diabetes 6. History of anxiety disorder 7. History of migraine headaches History of present illness: 37-year-old white female with known history of hypertension presented to the emergency department for 2 to 3-day history of vomiting and diarrhea with blood pressure noted to be uncontrolled. Patient has been unable to keep down her medication for the last 24 hours. She was seen in Dr. Yang's office earlier today and diagnosed with UTI for which she was sent to infusion therapy for IV antibiotics along with morphine due to abdominal pain and clonidine for blood pressure. Symptoms did not immediately improve and patient was sent to the ER for further evaluation. She has been started on IV nicardipine drip with improvement in her blood pressure from peak of 199/110 mm Hg down to 145/111 mm Hg at this time. Patient just received morphine. She has had IV antiemetics. Cardiology consulted for help with blood pressure management. Once patient's nausea and vomiting has subsided we will resume her metoprolol succinate 200 mg twice daily. [facility] Disclaimer: The information contained in this section may have been updated after the patient was seen, as this information can be updated by other users. Medical History 37 weeks gestation of Acute blood loss anemia Atopic dermatitis Cervical strain, acute Chronic hypertension affecting Edema Gestational diabetes Has daytime drowsiness Lumbar transverse process fracture Maternal obesity affecting , antepartum Nausea and vomiting No significant past medical history Obesity Partial thickness burn of back Restless sleeper Screening for genetic disease carrier status Sleep apnea Snoring Status post normal vaginal delivery Witnessed apneic spells Family History Other No significant family history Social History Smoking Status: Never smoker alcohol intake: never substance use type: denies use current occupational status: unemployed Travel in the last 8 weeks: None household members: family housing: house caffeine: Yes Review of Systems Review of Systems Review of systems:: pertinent systems reviewed and negative unless documented below Constitutional Constitutional: Reports weakness *Cardiovascular Cardiovascular: Denies chest pain and Denies dyspnea *Respiratory Respiratory: Denies dyspnea *Gastrointestinal Gastrointestinal: Reports abdominal pain, Reports diarrhea and Reports vomiting *Genitourinary Genitourinary: Reports dysuria *Neurologic Neurologic: Reports weakness Exam Data for Last 24 hours Vital signs and Labs for Last 24 Hours: Temp Pulse Resp BP Pulse Ox 98.3 F 104 H 12 145/111 H 98 10/15/22 12:41 10/15/22 14:18 10/15/22 14:18 10/15/22 14:18 10/15/22 14:18 Laboratory Results - last 24 hr 10/15/22 14:05: Urine Color [place], Urine Appearance Clear, Urine pH 6.5, Ur Specific [place] 1.020, Urine Protein 3+, Urine Glucose (UA) 1+, Urine Ketones 1+, Urine Blood Negative, Urine Nitrate Positive, Urine Bilirubin Negative, Urine Urobilinogen >=8.0, Ur Leukocyte Esterase 1+ A, Urine RBC None, Urine WBC 3-5, Ur Squamous Epith Cells Occasional, Urine Bacteria Trace I & O for Last 24
--- NOTE | 2022-10-15 15:03 | PC.NURSE ---
PT MEDICATED PER EMAR, MOTHER AT BEDSIDE. REPORTS HEADACHE IMPROVED. NO NEEDS AT THIS TIME
--- NOTE | 2022-10-15 15:14 | PC.NURSE ---
PT TO CT
--- NOTE | 2022-10-15 15:15 | PC.NURSE ---
DRIP STOPPED LONG ENOUGH TO GO TO CT TUBING NOT LONG ENOUGH
[2022-10-15 15:16] LABS: Urine Pregnancy, HCG Qual. Negative (Negative)
[2022-10-15 15:33] LABS: Activated Partial Thrombo Time 23.5 seconds (22.8-30.6); INR 1.05 (0.9-1.1); Prothrombin Time 11.3 seconds (10.1-12.5)
--- NOTE | 2022-10-15 15:38 | CA_ITS ---
FINAL REPORT TECHNIQUE: Grayscale, color Doppler and duplex Doppler ultrasound of the kidneys, aorta and renal arteries was performed. Multiple velocities were measured. CLINICAL HISTORY: MALIGNANT HTN,SJOGRENS DISEASE,LINDY,UTI FINDINGS: Aorta velocity: 122 cm/sec Right kidney: 12.1 cm. No evidence of hydronephrosis or mass. Right intrarenal RI: 0.61 Right renal artery velocity: 156 cm/sec. Right RAR (Renal artery-Aortic Ratio): 1.27 Left Kidney: 13.8 cm. No evidence of hydronephrosis or mass. Left intrarenal RI: 0.63 Left renal artery velocity: 121 cm/sec. Left RAR (Renal Artery-Aortic Ratio): 0.99 IMPRESSION: No evidence of significant renal artery stenosis. CT angiogram or postcontrast MR angiogram would be more sensitive for evaluation of possible renal artery stenosis. Reviewed, Interpreted and Dictated by Manpreet Dunlap III, MD Transcribed by Leslie Prasad Authenticated and . [facility]
--- NOTE | 2022-10-15 15:41 | PC.NURSE ---
1590 DR[address] CRAFT SPEAKING WITH DR DOOLEY FOR ADMISSION
--- NOTE | 2022-10-15 15:42 | PC.NURSE ---
CARE MANAGEMENT NOTIFIED OF ADMISSION
--- NOTE | 2022-10-15 15:49 | PC.NURSE ---
CARDENE DRIP INCREASED AT THIS TIME TO 55MLS/HR
[2022-10-15 16:01] LABS: Coronavirus 19, PCR Not Detected (NotDetected); Influenza A, PCR Not Detected (NotDetected); Influenza B, PCR Not Detected (NotDetected)
--- NOTE | 2022-10-15 16:04 | PC.NURSE ---
VASCULAR AT BEDSIDE FOR U/S
--- NOTE | 2022-10-15 16:25 | EXP.HP ---
History of Present Illness *Admission Date: 10/15/22 *Reason for visit:: malignant hypertension, headache, nausea and vomiting *History of present illness: 37-year female who is 1 month . Was admitted previously after delivery for malignant hypertension. Has been struggling with hypertension since and following with cardiology for outpatient adjustments of her medications. She presented to the ER today as she has been having worsening back pain, lower abdominal pain, nausea and vomiting. Has been unable to tolerate her medications and has developed headaches. Initially saw her PCP this morning who sent her for labs and IV fluids. Labs showed an LINDY. Noted to have significantly elevated blood pressure at her IV fluid infusion sent to the ER for further evaluation. In the ER she was afebrile, Malignant hypertension with blood pressure of 181/127. Urinalysis obtained was grossly abnormal with leukocyte esterase and nitrite positive. Patient initiated on nicardipine drip, given ceftriaxone, cardiology consulted for malignant hypertension. They recommended admission for further treatment. Medicine consulted for admission. After arriving to the floor, patient's blood pressure is improving on nicardipine drip but she remains tachycardic. Complaining of headache, low back pain, lower abdominal pain, and nausea. Denies confusion, shortness of breath, chest pain. States that she got better from her last UTI at the beginning of September but began feeling bad 2 to 3 days ago and has been unable to tolerate her oral medications at home. [facility] Disclaimer: The information contained in this section may have been updated after the patient was seen, as this information can be updated by other users. Medical History 37 weeks gestation of Acute blood loss anemia Atopic dermatitis Cervical strain, acute Chronic hypertension affecting Edema Gestational diabetes Has daytime drowsiness Lumbar transverse process fracture Maternal obesity affecting , antepartum Nausea and vomiting No significant past medical history Obesity Partial thickness burn of back Restless sleeper Screening for genetic disease carrier status Sjogren syndrome with other organ involvement Sleep apnea Snoring Status post normal vaginal delivery Witnessed apneic spells Family History No significant family history Social History Smoking Status: Never smoker alcohol intake: never substance use type: denies use current occupational status: unemployed Travel in the last 8 weeks: None household members: family housing: house caffeine: Yes Review of Systems Review of Systems Review of systems (narrative): 14 point review of systems performed, pertinent positives and negatives as per HPI Constitutional Constitutional: Reports weakness *Neurologic Neurologic: Reports weakness Meds Home Medications and Allergies Home Medications Medication Instructions Recorded Confirmed Type sumatriptan succinate 50 mg tablet 50 mg PO Q2H PRN migraine headache 09/11/22 10/15/22 Rx #30 tabs clonazepam 0.5 mg tablet (Klonopin) 0.5 mg PO TID Anxiety #90 tabs 10/15/22 10/15/22 Rx duloxetine 30 mg capsule,delayed 30 mg PO DAILY Depression 10/15/22 10/15/22 History release metoprolol succinate 200 mg 200 mg PO BID High blood pressure 10/15/22 10/15/22 History tablet,extended release 24 hr (Toprol XL) phenazopyridine 200 mg tablet 200 mg PO TID UTI 10/15/22 10/15/22 History promethazine 25 mg tablet 25 mg PO Q8H PRN nausea and 10/15/22 10/15/22 Rx vomiting #30 tabs tizanidine 4 mg tablet See Rx Instructions .Route 10/15/22 10/15/22 History .COMPLEX Pain tramadol 50 mg tablet 50 mg PO TID Pain #90 tabs 10/15/22 10/15/22 Rx New Prescriptions to Start Pr
--- NOTE | 2022-10-15 16:44 | PC.NURSE ---
REPORT GIVEN TO Michele DAVID RN
--- NOTE | 2022-10-15 16:51 | PC.NURSE ---
PT ASSISTED TO BR AND BACK, NO NEEDS AT THIS TIME. CARDENE DRIP AT 60ML/HR
--- NOTE | 2022-10-15 17:09 | PC.NURSE ---
arrived to floor by wheelchair from ED
--- NOTE | 2022-10-15 17:10 | PC.NURSE ---
PT TO MED SURG AT THIS TIME, PER HManuela DAVID RN
--- NOTE | 2022-10-15 20:52 | PC.NURSE ---
pt was up to bathroom and noted vomiting and states she does not feel good, c/o of pain in lower abd 9/10 and reports feels like someone stabbing her when she urinates ; pt c/o lightheadness and bsc placed in room, b/p noted to be 176/102 after episode, Michael Laureano aprn called, note order entered for morphine 2mg to be given iv x1, telephone order also to give phenergan dose early, last dose at 1600.
[2022-10-16] VITALS (19 sets, daily range): BP systolic 72–162; BP diastolic 56–99; PULSE 69–115; RESP 12–24; TEMP 36.5–37.1; O2SAT 92–100; BMI 32.6
--- NOTE | 2022-10-16 01:15 | PC.NURSE ---
0015 cardene drip reduced to 5mcg/50ml/hr for sbp <150
--- NOTE | 2022-10-16 03:08 | PC.NURSE ---
Michael Hodgson aprn called with pt complaints of pain unrelieved by hydrocodone ordered, not orders entered for morphine by provider.
--- NOTE | 2022-10-16 03:48 | PC.NURSE ---
mary kate martines aprn called regarding pt sbp consisitently below 150 since 1am, no new orders at this time, mary kate states to continue cardene drip at current rate 5mcg/50ml/hr
--- NOTE | 2022-10-16 04:55 | PC.NURSE ---
pt with complaints of pain unrelieved by hydrocodone prescribed, morphine given for breakthrough pain x4, pt stated compazine helped with dizziness, pt complains of urinary spasms and lower abd pain, pt remains on cardene drip at 5mcg/50ml/hr with sbp's less than 150, pts sbp will increase above 150 upon ambulation and urination, pt also noted to be tachycardic as well with hr up to 140, generalized edema 1+ noted, telemetry reveals sinus tach, skin pwd, no acute distress
--- NOTE | 2022-10-16 06:28 | PC.NURSE ---
0600 pt complained of starting to feel bad again and complains of pain 04/23, mary kate martines aprn notified, note orders entered for compazine and morphine per provider.
[2022-10-16 06:53] LABS: Basophils # 0.1 K/mm3 (0-0.2); Basophils % 0.5 % (0.1-2.0); Eosinophils # 0.2 K/mm3 (0.0-0.4); Eosinophils % 1.6 % (0.1-12.0); Hemoglobin 11.5 g/dL (12.2-16.2); Lymphocytes # 2.6 K/mm3 (0.7-4.5); Lymphocytes % 28.5 % (10-50); Mean Corpuscular HGB Conc 32.1 g/dL (31.8-35.4); Mean Corpuscular Hemoglobin 24.5 pg (27.0-31.2); Mean Corpuscular Volume 76.5 fl (81-99); Mean Platelet Volume 8.5 fl (7.4-10.4); Monocytes # 0.6 K/mm3 (0.1-1.0); Monocytes % 6.5 % (1.7-9.3); Neutrophils # 5.8 K/mm3 (1.8-7.8); Neutrophils % 62.9 % (37.0-80.0); Platelet Count 474 K/mm3 (142-424); Red Cell Distribution Width 15.9 % (11.5-17.5); White Blood Count 9.2 K/mm3 (4.8-10.8)
[2022-10-16 07:28] LABS: Chloride 106 mmol/L (98-107)
[2022-10-16 07:29] LABS: Potassium 3.8 mmoL/L (3.5-5.1); Sodium 143 mmol/L (136-145)
[2022-10-16 07:31] LABS: Alanine Aminotransferase 36 U/L (12-78); Alkaline Phosphatase 114 U/L (38-126); Anion Gap 14.8 mEq/L (5-15); Aspartate Amino Transferase 61 U/L (14-36); Bilirubin,Total 0.6 mg/dl (0.2-1.3); Blood Urea Nitrogen 8 mg/dl (7-17); Carbon Dioxide 26 mmol/L (22.0-30.0); Creatinine Clearance Estimated 112 mL/min (50-200); Estimated Glomerular Filt Rate 62 ml/min (>60); GFR (African American) 75 ML/MIN (>60)
[2022-10-16 07:32] LABS: Albumin Level 4.8 g/dl (3.5-5.0); Albumin/Globulin Ratio 1.3 (1.1-1.8); Calcium 9.3 mg/dl (8.4-10.2); Globulin 3.8 g/dL (1.3-3.2); Glucose 128 mg/dl (74-100); Magnesium 1.7 mg/dl (1.6-2.3); Total Protein,Serum 8.6 g/dl (6.3-8.2)
--- NOTE | 2022-10-16 09:23 | HMH.PHAINT1 ---
Pharmacy Intervention Comments: home medication list verified using list from outpatient pharmacy
--- NOTE | 2022-10-16 11:02 | EXP.CARD.PN ---
Subjective Subjective Date: 10/16/22 Time: 11:02 Principal diagnosis: Hypertension, UTI Interval history: 37-year-old white female currently sleeping after being given medications for her UTI and associated pain. Patient is off of the IV Nicardipine drip. Blood pressure 138/89 mmHg with heart rate around 100 bpm. Renal artery duplex was negative for significant stenosis. Abdominal/pelvis CT showed no evidence of enlarged renal size. No evidence of adrenal masses. In discussion with the mother patient previously had well-controlled blood pressure on lisinopril however during to her pregnancies this was discontinued and labetalol was used which ultimately was switched to bisoprolol and now on metoprolol therapy. We will try to reinstitute ARB therapy for help with blood pressure control along with proteinuria. Exam Data for Last 24 hours Vital signs and Labs for Last 24 Hours: Temp Pulse Resp BP Pulse Ox 97.9 F 90 20 124/89 93 L 10/16/22 07:46 10/16/22 10:00 10/16/22 10:00 10/16/22 10:00 10/16/22 10:00 Laboratory Results - last 24 hr 10/15/22 13:22: SARS-CoV-2 (PCR) Not detected, Influenza A Untype (PCR) Not detected, Influenza Type B (PCR) Not detected 10/15/22 14:05: Urine Color [place], Urine Appearance Clear, Urine pH 6.5, Ur Specific [place] 1.020, Urine Protein 3+, Urine Glucose (UA) 1+, Urine Ketones 1+, Urine Blood Negative, Urine Nitrate Positive, Urine Bilirubin Negative, Urine Urobilinogen >=8.0, Ur Leukocyte Esterase 1+ A, Urine RBC None, Urine WBC 3-5, Ur Squamous Epith Cells Occasional, Urine Bacteria Trace 10/15/22 14:05: Urine HCG, Qual Negative 10/15/22 15:15: PT 11.3, INR 1.05, APTT 23.5 10/16/22 05:45: WBC 9.2 D, RBC 4.70, Hgb 11.5 L, Hct 36.0 L, MCV 76.5 L, MCH 24.5 L, MCHC 32.1, RDW 15.9, Plt Count 474 H, MPV 8.5, Neut % (Auto) 62.9, Lymph % (Auto) 28.5, [place] % (Auto) 6.5, Eos % (Auto) 1.6, Baso % (Auto) 0.5, Neut # (Auto) 5.8, Lymph # (Auto) 2.6, [place] # (Auto) 0.6, Eos # (Auto) 0.2, Baso # (Auto) 0.1 10/16/22 05:45: Sodium 143, Potassium 3.8, Chloride 106, Carbon Dioxide 26, Anion Gap 14.8, BUN 8 D, Creatinine 1.00 D, Estimated Creat Clear 112, Estimated GFR 62, Est GFR ( Amer) 75 D, Glucose 128 H, Calcium 9.3, Magnesium 1.7, Total Bilirubin 0.6, AST 61 H D, ALT 36 D, Alkaline Phosphatase 114, Total Protein 8.6 H, Albumin 4.8, Globulin 3.8 H, Albumin/Globulin Ratio 1.3 I & O for Last 24 hours: Intake & Output 10/13/22 10/14/22 10/15/22 10/16/22 11:59 11:59 11:59 11:59 Intake Total 2199 / 2199 Output Total 1800 / 1800 Balance 399 / 399 Weight 203 lb Constitutional Constitutional: no acute distress *Routine Respiratory Exam Respiratory: Present CTA bilaterally *Routine Cardiovascular Exam Cardiovascular: Present RRR Progress Note: A&P Assessment and plan (1) Hypertensive emergency: Status: Acute (2) UTI (urinary tract infection): Status: Acute (3) Obesity (BMI 30.0-34.9): Status: Chronic (4) Chronic hypertension: Status: Chronic (5) Anemia: Status: Acute (6) Nausea and vomiting in adult: Status: Acute Assessment and Plan Assessment and Plan for All Diagnoses:: 1.? Nausea and vomiting with recent exposure to someone with GI illness, continue IV fluids and antiemetics.? Defer to hospitalist. 2.? UTI, patient has been given IV Rocephin earlier today.? Defer to hospitalist 3.? Hypertension with hypertensive emergency, due to inability to take medications.? BP improved on combination of IV nicardipine and oral metoprolol. IV nicardipine now discontinued and patient's blood pressures controlled on her home dose of metoprolol succinate 200 mg twice daily. We will try to institute ARB therapy and reduce metoprolol as able.. 4.? LINDY due to nausea and vomiting and dehydration, continue IV fluids. Resolved with IV fluids.
--- NOTE | 2022-10-16 11:12 | EXP.ACUTE.PN ---
Subjective *Date: 10/16/22 *Time: 11:12 Interval history: Blood pressure improved overnight. Able to come off nicardipine drip this morning. Blood pressure 124/89 on rounds. Resumed oral metoprolol. Afebrile. Still having significant lower abdominal and low back pain. Denies nausea, vomiting, diarrhea. No bowel movement since admission. Tolerating p.o. meds. stable on RA. Medical Exam Vital signs and Labs for Last 24 Hours: Vital Signs Temp Pulse Pulse Pulse Resp BP BP 10/16/22 08:00 110 H 10/16/22 10:00 90 20 124/89 10/16/22 08:00 115 H 10/16/22 08:00 115 H 20 145/99 H 10/16/22 07:46 97.9 F 10/16/22 07:36 97.7 F 10/16/22 06:00 114 H 16 143/94 H 10/16/22 05:00 109 H 18 140/74 10/16/22 04:00 98.1 F 10/16/22 04:00 115 H 10/16/22 04:00 112 H 24 162/94 H 10/16/22 03:51 112 H 10/16/22 03:00 103 H 19 149/74 H 10/16/22 00:00 110 H 10/16/22 02:00 103 H 23 146/92 H 10/16/22 01:00 107 H 21 140/87 10/16/22 00:00 107 H 20 139/92 H 10/16/22 00:00 98.2 F 10/15/22 20:00 110 H 10/15/22 22:30 103 H 23 145/97 H 10/15/22 22:00 124 H 22 163/99 H 10/15/22 20:00 106 H 10/15/22 20:00 98.4 F 103 H 20 155/95 H 10/15/22 18:00 126 H 10/15/22 14:30 105 H 145/111 H 10/15/22 17:05 99.0 F 110 H 17 150/102 H 10/15/22 14:30 107 H 18 10/15/22 17:15 99.1 F 10/15/22 16:30 113 H 11 L 181/116 H 10/15/22 16:00 113 H 17 174/108 H 10/15/22 15:30 107 H 17 163/110 H 10/15/22 15:00 12 170/111 H 10/15/22 14:30 105 H 16 174/111 H 10/15/22 14:18 104 H 12 145/111 H 10/15/22 14:05 101 H 16 187/118 H 10/15/22 13:30 97 H 10/15/22 13:01 91 H 181/127 H 10/15/22 12:41 98.3 F 89 18 BP Pulse Ox 10/16/22 08:00 10/16/22 10:00 93 L 10/16/22 08:00 94 L 10/16/22 08:00 94 L 10/16/22 07:46 10/16/22 07:36 10/16/22 06:00 99 10/16/22 05:00 100 10/16/22 04:00 10/16/22 04:00 10/16/22 04:00 100 10/16/22 03:51 100 10/16/22 03:00 94 L 10/16/22 00:00 10/16/22 02:00 92 L 10/16/22 01:00 93 L 10/16/22 00:00 96 10/16/22 00:00 10/15/22 20:00 10/15/22 22:30 96 10/15/22 22:00 98 10/15/22 20:00 96 10/15/22 20:00 98 10/15/22 18:00 100 10/15/22 14:30 97 10/15/22 17:05 10/15/22 14:30 145/111 H 96 10/15/22 17:15 10/15/22 16:30 97 10/15/22 16:00 95 10/15/22 15:30 94 L 10/15/22 15:00 10/15/22 14:30 96 10/15/22 14:18 98 10/15/22 14:05 100 10/15/22 13:30 100 10/15/22 13:01 100 10/15/22 12:41 181/127 H 98 Intake and Output 10/15/22 10/16/22 10/16/22 23:59 07:59 15:59 Intake Total 993 / 993 1206 / 1206 Output Total 1000 / 1200 800 / 800 Balance -7 / 207 406 / 406 Intake: Intake, Oral Amount 240 / 240 Intake, Other Amount 200 / 200 Intake, Total IV Amount 993 / 993 766 / 766 Nicardipine HCl 25 mg In 0.9 % 766 / 766 Sodium Chloride 240 ml @ 50 mls /hr IV .Q5H KAT Rx#:[id number] Ringers Solution,Lactated 1,000 993 / 993 ml @ 500 mls/hr IV .Q2H KAT Rx #:[id number] Output: Output, Urine Amount 1000 / 1200 800 / 800 Other: Intake, Other Source Saline Solution Number of Unmeasured Voids 0 0 Weight 91.314 kg 92.079 kg Patient Weight 10/16/22 23:59 Weight 92.079 kg Laboratory Results - last 24 hr 10/15/22 13:22: SARS-CoV-2 (PCR) Not detected, Influenza A Untype (PCR) Not detected, Influenza Type B (PCR) Not detected 10/15/22 14:05: Urine Color [place], Urine Appearance Clear, Urine pH 6.5, Ur Specific [place] 1.020, Urine Protein 3+, Urine Glucose (UA) 1+, Urine Ketones 1+, Urine Blood Negative, Urine Nitrate Positive, Urine Bilirubin Negative, Urine Urobilinogen >=8.0, Ur Leukocyte Esteras
--- NOTE | 2022-10-16 18:10 | EXP.DC.SUM ---
General Admission date:: 10/15/22 Discharge date: 10/17/22 HPI HPI HPI: 37-year female who is 1 month . Was admitted previously after delivery for malignant hypertension. Has been struggling with hypertension since and following with cardiology for outpatient adjustments of her medications. She presented to the ER today as she has been having worsening back pain, lower abdominal pain, nausea and vomiting. Has been unable to tolerate her medications and has developed headaches. Initially saw her PCP this morning who sent her for labs and IV fluids. Labs showed an LINDY. Noted to have significantly elevated blood pressure at her IV fluid infusion sent to the ER for further evaluation. In the ER she was afebrile, Malignant hypertension with blood pressure of 181/127. Urinalysis obtained was grossly abnormal with leukocyte esterase and nitrite positive. Patient initiated on nicardipine drip, given ceftriaxone, cardiology consulted for malignant hypertension. They recommended admission for further treatment. Medicine consulted for admission. After arriving to the floor, patient's blood pressure is improving on nicardipine drip but she remains tachycardic. Complaining of headache, low back pain, lower abdominal pain, and nausea. Denies confusion, shortness of breath, chest pain. States that she got better from her last UTI at the beginning of September but began feeling bad 2 to 3 days ago and has been unable to tolerate her oral medications at home. Hospital Course Hospital Course Hospital Course: 37-year-old female who presents with malignant hypertensive, hypertensive emergency, LINDY, UTI, inability to tolerate oral medication.? Initiated on nicardipine drip in the ER.? Discussed case with ER physician, given patient's need for IV therapy, kidney injury, IV antibiotic needs, requesting admission.? Patient admitted to medicine for further management. Initiated on nicardipine drip, weaned to oral therapy. Blood pressure still not quite at goal by time of discharge however better controlled and patient clinically is improved. Continue oral regimen below. Close follow-up with outpatient providers. Stable to discharge home. Problems addressed as follows: Hypertensive emergency Chronic hypertension -Cardiology consulted, appreciate their recommendations.? Discussed case with radiator specialist, okay to discontinue nicardipine drip.? Resume home metoprolol regimen 200 mg succinate twice daily.? Has responded well to SUSAN inhibitor in the past, initiated on irbesartan. We will continue 150 mg daily. Needs close follow-up in a week with cardiology for further adjustment to blood pressure regimen. Recommended patient continue her blood pressure log at home to aid in adjustment of meds. -Renal Doppler results negative for renal artery stenosis Nausea vomiting Diarrhea -No further episodes of nausea and vomiting after admission. Treated with Zofran and Phenergan during hospitalization. Unable to have a bowel movement. No diarrhea panel obtained. Overall felt better clinically. Symptoms resolved with fluid resuscitation and pain medication. Discussed concern for possible component of withdrawal from medications such as Klonopin or tramadol. Recommend patient discuss weaning off these medications in the outpatient setting with her PCP. UTI - Grossly abnormal UA. Urine culture obtained. Treated initially with 1 g ceftriaxone IV daily during hospitalization. No growth by day of discharge, will complete empiric 5-day course with cefdinir 300 mg twice a day for 3 more days. Started on phenazopyridine for bladder spasms and pain. Discharged home with a few days of phenazopyridine for pain control. LINDY: Prerenal in the setting of nausea and vomiting on admission. Initially elevated 1.9, normalized after fluid resuscitation. Stable at 1.1 on day of discharge. needs repeat labs in a week to monitor for stability given initiation of irbesarta
--- NOTE | 2022-10-16 18:34 | PC.NURSE ---
pt has rested t/o most of shift, nicardipine gtt turned off at approximately 0800, has complained of pain 2 times and nausea once and was treated per NOV, SBP 124/161, HR 90-115, remains on room air
--- NOTE | 2022-10-16 20:27 | EXP.RR ---
Documented by User: Michael Almazan DNP 10/16/22 20:41 Acute Rapid Response Note Subjective Date Responded: 10/16/22 Time Responded: 20:10 Provider Note: Called to patient's room by primary RN. Patient unresponsive, blood pressures in the 70's systolic. On arrival, patient upright in bed, non-responsive, will respond to pain. Blood pressure in the 70s on the monitor, NSR rate in the 80's. Narcan .04 mg iv given, patient slighty aroused. Gave order for NS bolus 1 liter x 1 Narcan 0.4 mg iv x 1 again repeated. Blood pressures in the 100 range systolic. Order for UDS. RN reported prior to event, patient up in bathroom was visiting. Event occurred after left. While RN were trying to put in torres for UDS, patient awoke, oriented. Blood pressures elevated. Will continue to monitor closely overnight. Spoke with RN, no sedating medications. Objective Findings: Vital Signs - Last 4 Hours Temperature 97.8 F 10/16/22 15:13 Temperature Source Oral 10/16/22 15:13 Pulse Rate 106 H 10/16/22 18:00 Respiratory Rate 18 10/16/22 18:00 Blood Pressure 134/84 10/16/22 18:00 Blood Pressure Mean 100 10/16/22 18:00 Blood Pressure Source Automatic Cuff 10/16/22 05:00 Blood Pressure Position Supine 10/16/22 06:00 02 Sat by Pulse Oximetry 100 10/16/22 18:00 Oxygen Delivery Method 10/16/22 19:00 My Orders Category Date Time Status Drug Screen,Urine Routine Lab 10/16/22 20:26 Ordered 0.9 % Sodium Chloride [Sod Chlor 0.9% 1000mL Bag] 500 Med 10/16/22 20:15 Ordered ml IV 999 mls/hr Naloxone HCl [Narcan 0.4mg/mL vial] Med 10/16/22 20:10 Once 0.4 mg IV ONCE ONE Naloxone HCl [Narcan 0.4mg/mL vial] Med 10/16/22 20:18 Once 0.4 mg IV ONCE ONE Rapid Response Exam General General appearance: lethargic and obtunded Head Head exam: normocephalic ENT ENT exam: Present normal exam Neck Neck exam: Present normal inspection Chest Chest inspection: Present normal inspection Respiratory Respiratory exam: Present normal lung sounds bilaterally Cardiovascular Cardiovascular exam: Present regular rate and normal rhythm Abdominal Exam Abdominal exam: Present soft and normal bowel sounds Neurological Exam Neurological exam: Present other RR Procedures/Assess/Plan (1) Hypertensive emergency: Status: Acute (2) UTI (urinary tract infection): Status: Acute (3) LINDY (acute kidney injury): Status: Acute (4) Obesity (BMI 30.0-34.9): Status: Chronic (5) Chronic hypertension: Status: Chronic (6) Anemia: Status: Acute Qualifiers: Anemia type: iron deficiency (7) Nausea and vomiting in adult: Status: Acute Assessment and plan all Dx Assessment and Plan for all problems:: Continue to monitor closely overnight No sedating medications Sending urine for UDS Watch blood pressures closely Documented by User: Al Oconnell MD 10/17/22 12:02 RR Procedures/Assess/Plan (1) Hypertensive emergency: Status: Acute (2) UTI (urinary tract infection): Status: Acute (3) LINDY (acute kidney injury): Status: Acute (4) Obesity (BMI 30.0-34.9): Status: Chronic (5) Chronic hypertension: Status: Chronic (6) Anemia: Status: Acute Qualifiers: Anemia type: iron deficiency (7) Nausea and vomiting in adult: Status: Acute Assessment and plan all Dx Assessment and Plan for all problems:: Continue to monitor closely overnight No sedating medications Sending urine for UDS Watch blood pressures closely Rounded on patient after nurse practitioner. Personally examined and interviewed patient. Agree with exam findings and care plan as documented.
--- NOTE | 2022-10-16 20:50 | PC.NURSE ---
1999 bp 72/58 Upon assessment of pt, pt is unresponsive with only small flinching to deep pain. Manual bp 75/50. 2005 Hospitalist notified, this RN stayed at bedside with pt 2009 Hospitalist at bedside, bp 70/30. Hospitalist orders to administer 0.4mg of Narcan. 2011 Narcan administered. 2015 Hospitalist states to give 500ml bolus. Carried out. 2018 Pt continues to be unresponsive. Hospitalist states to give 0.4mg Narcan. current bp 99/40 2019 Narcan administered. Current bp 106/49. 2023 Hospitalist states to in/out cath for a urine drug screen. 2028 Urine collected and sent to lab. Pt awakens for brief moment while inserting cath. Pt able to state her name and where she is. Pt breathing on her own and HR currently 95. Hospitalist states to closely monitor pt.
[2022-10-16 21:23] LABS: Benzodiazepines Screen,Urine Negative ng/ml (<200)
[2022-10-16 21:24] LABS: Amphetamine/Metha Screen,Urine Negative ng/ml (<1000); Barbiturates Screen,Urine Negative ng/ml (<200)
[2022-10-16 21:26] LABS: Cannabinoid Screen,Urine Positive ng/ml (<50); Cocaine Screen,Urine Negative ng/ml (<300)
[2022-10-16 21:27] LABS: Methadone Screen,Urine Negative ng/ml (<300)
[2022-10-16 21:28] LABS: Opiate Screen,Urine Positive ng/ml (<300); Phencyclidine Screen,Urine Negative ng/ml (<25)
[2022-10-17] VITALS: BP 114/83; PULSE 77; PULSE 80; RESP 19; TEMP 36.8; O2SAT 96
[2022-10-17 02:00] VITALS: BP 124/87; PULSE 100; RESP 20; O2SAT 100
[2022-10-17 04:00] VITALS: BP 141/93; PULSE 115; PULSE 70; RESP 15; TEMP 36.6; O2SAT 96; BMI 33.5
[2022-10-17 06:00] VITALS: BP 162/100; PULSE 96; RESP 20; O2SAT 99
[2022-10-17 06:31] LABS: Basophils # 0.1 K/mm3 (0-0.2); Basophils % 1.6 % (0.1-2.0); Eosinophils # 0.2 K/mm3 (0.0-0.4); Eosinophils % 3.1 % (0.1-12.0); Hematocrit 33.3 % (37.0-47.0); Hemoglobin 10.7 g/dL (12.2-16.2); Lymphocytes # 2.6 K/mm3 (0.7-4.5); Lymphocytes % 36.8 % (10-50); Mean Corpuscular HGB Conc 32.2 g/dL (31.8-35.4); Mean Corpuscular Hemoglobin 24.4 pg (27.0-31.2); Mean Corpuscular Volume 75.7 fl (81-99); Mean Platelet Volume 9.1 fl (7.4-10.4); Monocytes # 0.5 K/mm3 (0.1-1.0); Monocytes % 6.6 % (1.7-9.3); Neutrophils # 3.7 K/mm3 (1.8-7.8); Neutrophils % 51.9 % (37.0-80.0); Platelet Count 392 K/mm3 (142-424); Red Cell Distribution Width 15.9 % (11.5-17.5); White Blood Count 7.1 K/mm3 (4.8-10.8)
[2022-10-17 06:33] LABS: Chloride 108 mmol/L (98-107); Potassium 3.9 mmoL/L (3.5-5.1); Sodium 141 mmol/L (136-145)
[2022-10-17 06:36] LABS: Anion Gap 11.9 mEq/L (5-15); Blood Urea Nitrogen 13 mg/dl (7-17); Calcium 9.1 mg/dl (8.4-10.2); Carbon Dioxide 25 mmol/L (22.0-30.0); Creatinine Clearance Estimated 104 mL/min (50-200); Estimated Glomerular Filt Rate 56 ml/min (>60); GFR (African American) 68 ML/MIN (>60); Glucose 101 mg/dl (74-100)
--- NOTE | 2022-10-17 07:02 | PC.NURSE ---
Pt woke up around 0230 c/o pain and nausea. Hospitalist notified and Zofran 4mg IV Q6h PRN ordered. Zofran and Toradol administered. Pt was notified of low bp episode earlier in night and need to d/c sedative medications at this time. Pt states understanding. No other c/o voiced t/o night. Rounded on pt with Michael DAVIS this am to answer pt questions. Home meds locked in drawer. Mother at bedside. Call light within reach.
[2022-10-17 08:00] VITALS: BP 163/105; PULSE 102; PULSE 110; RESP 12; TEMP 36.9; O2SAT 100
--- NOTE | 2022-10-17 09:58 | EXP.PHA.PN ---
Subjective *Date: 10/17/22 *Time: 09:58 Medical Exam Vital signs and Labs for Last 24 Hours: Vital Signs Temp Pulse Pulse Resp BP Pulse Ox 10/17/22 08:00 98.5 F 102 H 12 163/105 H 100 10/17/22 06:00 96 H 20 162/100 H 99 10/17/22 00:00 80 10/17/22 04:00 70 10/16/22 20:00 80 10/17/22 04:00 97.8 F 115 H 15 141/93 H 96 10/17/22 02:00 100 H 20 124/87 100 10/16/22 20:00 94 L 10/17/22 00:00 98.2 F 77 19 114/83 96 10/16/22 22:00 71 18 91/56 L 95 10/16/22 20:00 98.7 F 69 12 72/58 L 94 L 10/16/22 16:00 97 H 97 10/16/22 18:00 106 H 18 134/84 100 10/16/22 16:00 100 H 10/16/22 14:00 112 H 20 161/83 H 98 10/16/22 16:00 98 H 18 140/98 H 95 10/16/22 12:00 90 10/16/22 15:13 97.8 F 10/16/22 12:00 105 H 18 137/94 H 94 L 10/16/22 10:00 90 20 124/89 93 L Intake and Output 10/16/22 10/17/22 10/17/22 23:59 07:59 15:59 Intake Total 120 / 1616 720 / 720 Output Total 0 / 1050 Balance 120 / 566 720 / 720 Intake: Intake, Oral Amount 120 / 600 720 / 720 Output: Output, Urine Amount 0 / 1050 Other: Number of Unmeasured Voids 1 Weight 94.529 kg Patient Weight 10/17/22 23:59 Weight 94.529 kg Laboratory Results - last 24 hr 10/16/22 20:37: Urine Opiates Screen Positive H, Urine Methadone Screen Negative, Ur Barbituates Screen Negative, Ur Phencyclidine Scrn Negative, Ur Amphetamines Screen Negative, U Benzodiazepines Scrn Negative, Urine Cocaine Screen Negative, U Marijuana (THC) Screen Positive H 10/17/22 05:51: WBC 7.1, RBC 4.40, Hgb 10.7 L, Hct 33.3 L, MCV 75.7 L, MCH 24.4 L, MCHC 32.2, RDW 15.9, Plt Count 392, MPV 9.1, Neut % (Auto) 51.9, Lymph % (Auto) 36.8, [place] % (Auto) 6.6, Eos % (Auto) 3.1, Baso % (Auto) 1.6, Neut # (Auto) 3.7, Lymph # (Auto) 2.6, [place] # (Auto) 0.5, Eos # (Auto) 0.2, Baso # (Auto) 0.1 10/17/22 05:51: Sodium 141, Potassium 3.9, Chloride 108 H, Carbon Dioxide 25, Anion Gap 11.9, BUN 13 D, Creatinine 1.10 H, Estimated Creat Clear 104, Estimated GFR 56 L, Est GFR ( Amer) 68, Glucose 101 H, Calcium 9.1 I & O for Labs for Last 24 Hours: Intake & Output 10/14/22 10/15/22 10/16/22 10/17/22 23:59 23:59 23:59 23:59 Intake Total 993 / 993 1616 / 1616 720 / 720 Output Total 1000 / 1200 1050 / 1050 Balance -7 / -207 566 / 566 720 / 720 Weight 91.314 kg 92.079 kg 94.529 kg Microbiology Reports for the Last 24 Hours: Microbiology 10/15/22 14:05 Urine,Clean Catch Urine Culture - Preliminary NO GROWTH AFTER 24 HOURS The patient's infection will respond to the chosen ABx?: Yes (SENSITIVE ) Is the patient receiving the right drug, dose, and route?: Yes Could a more targeted ABx be ordered?: No
[2022-10-17 10:00] VITALS: BP 158/105; PULSE 98; RESP 16; O2SAT 100
--- NOTE | 2022-10-22 14:44 | CARE MANAGER ---
Spoke with patient for post-discharge phone interview, no issues noted.
== END 2022-10-17 11:00 | disposition home or self-care (01) | DRG 305 ==
LOC: ER 15:36 → 2ND 16:07
PROVIDERS: Nurse Practitioner Family; Admitting Provider Internal Medicine Adolescent Medicine; Emergency Provider Emergency Medicine; PCP Emergency Medicine; Visit Provider Internal Medicine Adolescent Medicine
DX: I16.1 Hypertensive emergency (principal); N17.9 Acute kidney failure, unspecified; I10 Essential (primary) hypertension; E66.9 Obesity, unspecified; Z68.33 Body mass index [BMI] 33.0-33.9, adult; E86.0 Dehydration
CPT/HCPCS: 36415; 74176; 80048; 80053; 80305; 81001; 81025; 83735; 85025; 85610; 85730; 87086; 93005; 93976; 96360; 96367; 96375; 99291; C9803; J0696; J2405; U0003; U0005

== ENCOUNTER → 2022-10-15 19:33 | Outpatient (CLI) | payer OTHER, SELFPAY | PROVIDERS: PCP Emergency Medicine; Visit Provider Emergency Medicine | DX: I10 Essential (primary) hypertension (principal) ==

== ENCOUNTER → 2022-10-28 14:00 | Outpatient (CLI) | payer OTHER, SELFPAY | PROVIDERS: PCP Emergency Medicine; Visit Provider Nurse Practitioner Family | DX: G47.33 Obstructive sleep apnea (adult) (pediatric) (principal); R06.83 Snoring; I10 Essential (primary) hypertension | CPT/HCPCS: G0399 ==

== ENCOUNTER → 2022-11-27 11:40 | Outpatient (CLI) | payer OTHER, SELFPAY | PROVIDERS: PCP Emergency Medicine; Visit Provider Nurse Practitioner Family | DX: I49.9 Cardiac arrhythmia, unspecified (principal) | CPT/HCPCS: 93270 ==

== ENCOUNTER → 2022-12-25 20:41 | Outpatient (CLI) | payer OTHER, SELFPAY | PROVIDERS: PCP Student in an Organized Health Care Education/Training Program; Visit Provider Student in an Organized Health Care Education/Training Program | DX: N39.0 Urinary tract infection, site not specified (principal) | CPT/HCPCS: 87086 ==

== ENCOUNTER → 2023-01-23 23:27 | Outpatient (CLI) | payer OTHER, SELFPAY ==
[2023-01-23 17:37] LABS: Basophils % 0.4 % (0.1-2.0); Eosinophils # 0.5 K/mm3 (0.0-0.4); Eosinophils % 5.5 % (0.1-12.0); Hematocrit 33.8 % (37.0-47.0); Lymphocytes # 2.5 K/mm3 (0.7-4.5); Lymphocytes % 26.7 % (10-50); Mean Corpuscular HGB Conc 32.5 g/dL (31.8-35.4); Mean Corpuscular Hemoglobin 25.8 pg (27.0-31.2); Mean Corpuscular Volume 79.3 fl (81-99); Mean Platelet Volume 7.6 fl (7.4-10.4); Monocytes # 0.4 K/mm3 (0.1-1.0); Monocytes % 4.5 % (1.7-9.3); Neutrophils # 5.8 K/mm3 (1.8-7.8); Neutrophils % 62.8 % (37.0-80.0); Platelet Count 494 K/mm3 (142-424); Red Blood Count 4.27 M/mm3 (4.20-5.40); Red Cell Distribution Width 16.3 % (11.5-17.5); White Blood Count 9.2 K/mm3 (4.8-10.8)
[2023-01-23 18:05] LABS: Alanine Aminotransferase 37 U/L (12-78); Albumin Level 4.8 g/dl (3.5-5.0); Albumin/Globulin Ratio 1.7 (1.1-1.8); Alkaline Phosphatase 97 U/L (38-126); Anion Gap 20.4 mEq/L (5-15); Aspartate Amino Transferase 40 U/L (14-36); Bilirubin,Total 0.3 mg/dl (0.2-1.3); Blood Urea Nitrogen 9 mg/dl (7-17); Calcium 9.4 mg/dl (8.4-10.2); Carbon Dioxide 26 mmol/L (22.0-30.0); Chloride 96 mmol/L (98-107); Estimated Glomerular Filt Rate 94 ml/min (>60); GFR (African American) 114 ML/MIN (>60); Globulin 2.9 g/dL (1.3-3.2); Glucose 80 mg/dl (74-100); Potassium 4.4 mmoL/L (3.5-5.1); Sodium 138 mmol/L (136-145); Total Protein,Serum 7.7 g/dl (6.3-8.2)
[2023-01-23 18:06] LABS: Erythrocyte Sedimentation Rate 33 mm/hr (0-20)
[2023-01-23 18:11] LABS: C-Reactive Protein 5.1 mg/L (0-4)
[2023-01-23 18:37] LABS: Thyroid Stimulating Hormone 2.17 uIU/mL (0.465-4.68)
[2023-01-26 14:08] LABS: Anti-Centromere B Antibodies <0.2 AI (0.0-0.9); Anti-DNA (DS) Ab Qn <1 IU/mL (0-9); Anti-Jo-1 <0.2 AI (0.0-0.9); Anti-Smith Antibody <0.2 AI (0.0-0.9); Antichromatin Antibodies <0.2 AI (0.0-0.9); Antiscleroderma-70 Antibodies <0.2 AI (0.0-0.9); RNP Antibodies <0.2 AI (0.0-0.9); Sjogren's Anti-SS-A <0.2 AI (0.0-0.9); Sjogren's Anti-SS-B <0.2 AI (0.0-0.9)
== END ==
PROVIDERS: PCP Emergency Medicine; Visit Provider Emergency Medicine
DX: R53.83 Other fatigue (principal)
CPT/HCPCS: 80053; 84443; 85025; 85651; 86140; 86225; 86235

== ENCOUNTER → 2023-01-26 15:26 | Outpatient (CLI) | payer OTHER, SELFPAY ==
[2023-01-26 15:31] LABS: Microscopic, Urine URINE MICROSCOPIC (MICROSCOPIC)
[2023-01-26 15:51] LABS: Appearance,Urine CLEAR (Clear); Bilirubin,Urine Negative (Negative); Blood, Urine TRACE-I (Negative); Color,Urine YELLOW (Yellow); Glucose,Urine (UA) Negative (Negative); Ketones,Urine Negative (Negative); Leukocyte Esterase,Urine Negative (Negative); Nitrate,Urine Negative (Negative); PH,Urine 5.5 (5.0-8.5); Protein,Urine TRACE (Negative); Specific Gravity, Urine >= 1.030 (1.005-1.030); Urobilinogen,Urine 0.2 EU/dl (0.2)
[2023-01-26 16:13] LABS: Bacteria,Urine 1+ /lpf; RBC,Urine Occasional #/hpf (0-3); WBC,Urine Occasional #/hpf (0-3)
[2023-01-28 13:58] LABS: Progesterone 0.1 ng/mL (.)
[2023-02-01 14:31] LABS: Estrogen 107 pg/mL (.)
== END ==
PROVIDERS: PCP Emergency Medicine; Visit Provider Nurse Practitioner Family
DX: E34.9 Endocrine disorder, unspecified (principal); R35.0 Frequency of micturition; N39.0 Urinary tract infection, site not specified; B96.29 Other Escherichia coli [E. coli] as the cause of diseases classified elsewhere
CPT/HCPCS: 36415; 81001; 82672; 84144; 87086; 87088; 87186

== ENCOUNTER → 2023-01-28 09:59 | Outpatient (CLI) | payer OTHER, SELFPAY ==
--- NOTE | 2023-01-28 10:00 | US_ITS ---
FINAL REPORT CLINICAL HISTORY: Urinary tract infection, site not specified COMPARISON: None FINDINGS: RENAL ULTRASOUND Ultrasound images of the kidneys were obtained. Limited images of the liver parenchyma demonstrates normal echogenicity. The right kidney measures 11.9 cm in length. It is normal echogenicity. There is no hydronephrosis. The left kidney measures 9.5 cm in length. It is normal echogenicity. There is no hydronephrosis. Reviewed, Interpreted and Dictated by Manpreet Dunlap III, MD Transcribed by Yesy Aviles Authenticated and [facility]
== END ==
PROVIDERS: PCP Emergency Medicine; Visit Provider Nurse Practitioner Family
DX: N39.0 Urinary tract infection, site not specified (principal)
CPT/HCPCS: 76770

== ENCOUNTER → 2023-02-06 23:29 | Outpatient (CLI) | payer OTHER, SELFPAY | PROVIDERS: PCP Student in an Organized Health Care Education/Training Program; Visit Provider Student in an Organized Health Care Education/Training Program | DX: N39.0 Urinary tract infection, site not specified (principal) | CPT/HCPCS: 87086 ==

== ENCOUNTER → 2023-02-16 14:02 | Outpatient (CLI) | payer OTHER, SELFPAY ==
[2023-02-16 15:04] LABS: Basophils % 0.5 % (0.1-2.0); Eosinophils # 0.5 K/mm3 (0.0-0.4); Eosinophils % 7.9 % (0.1-12.0); Hemoglobin 11.4 g/dL (12.2-16.2); Lymphocytes # 2.4 K/mm3 (0.7-4.5); Lymphocytes % 39.6 % (10-50); Mean Corpuscular HGB Conc 32.5 g/dL (31.8-35.4); Mean Corpuscular Hemoglobin 25.8 pg (27.0-31.2); Mean Corpuscular Volume 79.4 fl (81-99); Mean Platelet Volume 7.6 fl (7.4-10.4); Monocytes # 0.3 K/mm3 (0.1-1.0); Monocytes % 5.4 % (1.7-9.3); Neutrophils # 2.8 K/mm3 (1.8-7.8); Neutrophils % 46.6 % (37.0-80.0); Platelet Count 361 K/mm3 (142-424); Red Cell Distribution Width 14.8 % (11.5-17.5); White Blood Count 5.9 K/mm3 (4.8-10.8)
[2023-02-16 15:39] LABS: Chloride 101 mmol/L (98-107); Potassium 4.4 mmoL/L (3.5-5.1); Sodium 138 mmol/L (136-145)
[2023-02-16 15:42] LABS: Anion Gap 14.4 mEq/L (5-15); Blood Urea Nitrogen 7 mg/dl (7-17); Carbon Dioxide 27 mmol/L (22.0-30.0); Estimated Glomerular Filt Rate 81 ml/min (>60); GFR (African American) 98 ML/MIN (>60)
[2023-02-16 15:43] LABS: Calcium 9.8 mg/dl (8.4-10.2); Glucose 81 mg/dl (74-100)
[2023-02-16 15:43] LABS: Iron 43 ug/dL (37-170)
[2023-02-16 15:52] LABS: Total Iron Binding Capacity 495 ug/dL (265-497)
[2023-02-16 16:18] LABS: Ferritin 6.14 ng/ml (6.24-137)
== END ==
LOC: INF 14:04 → LAB 14:06
PROVIDERS: PCP Emergency Medicine; Referring Provider Internal Medicine Medical Oncology; Visit Provider Nurse Practitioner Family
DX: D64.9 Anemia, unspecified (principal); F41.9 Anxiety disorder, unspecified; I10 Essential (primary) hypertension; M35.00 Sjogren syndrome, unspecified; G47.33 Obstructive sleep apnea (adult) (pediatric)
CPT/HCPCS: 36415; 80048; 82728; 83540; 83550; 85025

== ENCOUNTER 2023-02-26 14:05 | Outpatient (CLI) | payer OTHER, SELFPAY ==
[2023-02-26 14:36] VITALS: BP 154/96; PULSE 88; RESP 18; O2SAT 99
[2023-02-26 15:30] VITALS: BP 162/87; PULSE 89; RESP 18; O2SAT 99
== END 2023-02-26 15:30 | disposition home or self-care (01) ==
LOC: INF 14:06
PROVIDERS: PCP Emergency Medicine; Visit Provider Internal Medicine Medical Oncology
DX: D64.9 Anemia, unspecified (principal); D50.9 Iron deficiency anemia, unspecified
CPT/HCPCS: 96365; J1756

== ENCOUNTER 2023-03-05 12:42 | Outpatient (CLI) | payer OTHER, SELFPAY ==
[2023-03-05 13:15] VITALS: BP 166/102; PULSE 69; RESP 16; O2SAT 99
[2023-03-05 13:45] VITALS: BP 168/106; PULSE 68; RESP 16
== END 2023-03-05 14:00 | disposition home or self-care (01) ==
LOC: INF 12:43
PROVIDERS: PCP Emergency Medicine; Visit Provider Internal Medicine Medical Oncology
DX: D50.9 Iron deficiency anemia, unspecified (principal)
CPT/HCPCS: 96365; J1756

== ENCOUNTER 2023-03-12 10:50 | Outpatient (CLI) | payer OTHER, SELFPAY ==
[2023-03-12 11:12] VITALS: BP 127/90; PULSE 66; RESP 18; TEMP 36.8; O2SAT 100
[2023-03-12 11:59] VITALS: BP 123/84; PULSE 67; RESP 18; O2SAT 99
== END 2023-03-12 12:12 | disposition home or self-care (01) ==
LOC: INF 10:51
PROVIDERS: PCP Emergency Medicine; Visit Provider Internal Medicine Medical Oncology
DX: D64.9 Anemia, unspecified (principal); D50.9 Iron deficiency anemia, unspecified
CPT/HCPCS: 96365; J1756

== ENCOUNTER 2023-03-19 09:56 | Outpatient (CLI) | payer OTHER, SELFPAY ==
[2023-03-19 10:08] VITALS: BP 131/85; PULSE 75; RESP 18; TEMP 36.6; O2SAT 98
[2023-03-19 11:21] VITALS: BP 153/95; PULSE 88; RESP 16; TEMP 36.7; O2SAT 100
== END 2023-03-19 11:25 | disposition home or self-care (01) ==
LOC: INF 09:56
PROVIDERS: PCP Emergency Medicine; Visit Provider Internal Medicine Medical Oncology
DX: D64.9 Anemia, unspecified (principal); D50.9 Iron deficiency anemia, unspecified; T45.4X5A Adverse effect of iron and its compounds, initial encounter
CPT/HCPCS: 96365; J1756

== ENCOUNTER → 2023-03-24 23:34 | Outpatient (CLI) | payer OTHER, SELFPAY | PROVIDERS: PCP Emergency Medicine; Visit Provider Emergency Medicine | DX: N39.0 Urinary tract infection, site not specified (principal) | CPT/HCPCS: 87086 ==

== ENCOUNTER 2023-03-26 10:05 | Outpatient (CLI) | payer OTHER, SELFPAY ==
[2023-03-26 10:45] VITALS: BP 136/87; PULSE 65; RESP 16
[2023-03-26 11:20] VITALS: BP 137/87; PULSE 60; RESP 16
== END 2023-03-26 11:25 | disposition home or self-care (01) ==
LOC: INF 10:05
PROVIDERS: PCP Emergency Medicine; Visit Provider Internal Medicine Medical Oncology
DX: D50.9 Iron deficiency anemia, unspecified (principal)
CPT/HCPCS: 96365; J1756

== ENCOUNTER → 2023-05-04 09:51 | Outpatient (CLI) | payer OTHER, SELFPAY ==
[2023-05-04 10:29] LABS: Basophils # 0.1 K/mm3 (0-0.2); Basophils % 0.8 % (0.1-2.0); Eosinophils # 0.5 K/mm3 (0.0-0.4); Hematocrit 41.7 % (37.0-47.0); Hemoglobin 13.9 g/dL (12.2-16.2); Lymphocytes # 2.6 K/mm3 (0.7-4.5); Lymphocytes % 33.2 % (10-50); Mean Corpuscular HGB Conc 33.2 g/dL (31.8-35.4); Mean Corpuscular Hemoglobin 28.3 pg (27.0-31.2); Mean Corpuscular Volume 85.1 fl (81-99); Mean Platelet Volume 7.8 fl (7.4-10.4); Monocytes # 0.3 K/mm3 (0.1-1.0); Monocytes % 3.8 % (1.7-9.3); Neutrophils # 4.4 K/mm3 (1.8-7.8); Neutrophils % 56.2 % (37.0-80.0); Platelet Count 378 K/mm3 (142-424); Red Cell Distribution Width 15.7 % (11.5-17.5); White Blood Count 7.8 K/mm3 (4.8-10.8)
[2023-05-04 10:52] LABS: Iron 63 ug/dL (37-170)
[2023-05-04 11:02] LABS: Total Iron Binding Capacity 415 ug/dL (265-497)
[2023-05-04 11:28] LABS: Ferritin 91.7 ng/ml (6.24-137)
== END ==
PROVIDERS: PCP Emergency Medicine; Visit Provider Internal Medicine Medical Oncology
DX: D50.9 Iron deficiency anemia, unspecified (principal)
CPT/HCPCS: 36415; 82728; 83540; 83550; 85025

== ENCOUNTER 2023-08-05 14:58 | Emergency (ER) | payer OTHER, SELFPAY ==
[2023-08-05 14:59] VITALS: BP 120/41; PULSE 103; RESP 20; TEMP 36.8; O2SAT 98; BMI 31.6
--- NOTE | 2023-08-05 15:40 | EXP.UTC ---
Discharge Plan Disposition Patient Disposition: Home, Self-Care Condition: Good Prescriptions Prescriptions: New benzonatate [benzonatate] 100 mg capsule 100 mg PO TIDP PRN (Reason: Cough) Qty: 30 0RF ondansetron 4 mg Tablet,Disintegrating 4 mg PO Q8H PRN (Reason: Nausea) Qty: 12 0RF Paxlovid 300 mg (150 mg x 2)-100 mg tablets,dose pack See Rx Instructions .ROUTE .COMPLEX Qty: 30 0RF Rx Instructions: take TWO 150 mg tablets of nirmatrelvir with ONE 100 mg tablet of ritonavir twice daily for 5 days No Action medroxyprogesterone [Depo-Provera] 150 mg/mL suspension 150 mg IM [id number] Qty: 1 3RF tramadol 50 mg tablet 50 mg PO TID PRN (Reason: moderate to severe pain) Qty: 90 2RF clonazepam [Klonopin] 0.5 mg tablet 0.5 mg PO TID PRN (Reason: Anxiety) Qty: 90 2RF metoprolol succinate [Toprol XL] 200 mg tablet extended release 24 hr 200 mg PO BID Qty: 30 5RF hydrochlorothiazide 12.5 mg tablet See Rx Instructions .ROUTE .COMPLEX Qty: 90 1RF Dose Instruction: TAKE 1 TABLET BY MOUTH ONCE DAILY Rx Instructions: TAKE 1 TABLET BY MOUTH ONCE DAILY tizanidine 4 mg tablet 8 mg PO Q8H 30 Days Qty: 180 2RF duloxetine 30 mg capsule,delayed release(DR/EC) 30 mg PO DAILY Qty: 90 0RF sumatriptan succinate 50 mg tablet See Rx Instructions PO .COMPLEX PRN (Reason: Headache) Qty: 30 0RF Rx Instructions: take 1 tab at onset of headache; if no relief may repeat 1 tab after at least 2 hrs; max = 4 tabs/24 hr orally PRN; ondansetron HCl 4 mg tablet 4 mg PO Q8H PRN (Reason: nausea and vomiting) Qty: 30 1RF Ubrelvy 100 mg tablet 100 mg PO ONCE PRN (Reason: migraine headache) Qty: 10 2RF irbesartan 300 mg tablet 150 mg PO BID Referrals Follow up/Referrals: Provider,Referral, MD [Primary Care Provider] - See instructions Activity Restrictions/Add. Instructions Additional Instructions/Restrictions: Drink plenty of fluids. Take tylenol or ibuprofen for pain or fever. Take the medications as directed. Follow up with your regular doctor. Don't start the paxlovid unless you come back positive for covid-19. GO TO THE ER FOR ANY WORSENING SYMPTOMS Clinical Impressions Clinical Impression: Exposure to 2019 novel coronavirus, Acute viral syndrome Instructions Patient Instructions: Coronavirus Disease 2019, Preventing the Spread of Coronavirus Discharge Instructions Discharge ED Provider: Al Encarnacion [facility] [place] HPI General Stated complaint: POSITIVE HOME COVID TEST Mode of Arrival: Ambulatory Source of Information: Patient Limitations: No Limitations Time Seen by Provider: 08/05/23 15:39 Description of Symptoms (Recalled from Triage Doc. by RN): c/o weak, body aches, cough, chills, REEVES, ribs hurt, chest hurts, tested positive at home for covid HEENT Symptoms (Recalled from RN notes): Yes Resp Symptoms (Recalled from RN notes): Yes (cough) Skin Symptoms (Recalled from RN notes): No MS Symptoms (Recalled from RN notes): No Functional Status (Recalled from RN notes): na History of Present Illness Provider Complaint: She states that she started feeling bad 2 days ago. Yesterday her symptoms worsened. She is having body aches, chills, fever up to 102, and a dry cough. She tested positive on a home covid-19 test. She denies shortness of breath. Related Data Home Medications Medication Instructions Recorded Confirmed irbesartan 300 mg tablet 150 mg PO BID Hypertension 02/26/23 06/23/23 Previous Rx's Medication Instructions Recorded metoprolol succinate 200 mg 200 mg PO BID High blood pressure 12/31/22 tablet,extended release 24 hr #30 tabs (Toprol XL) medroxyprogesterone 150 mg/mL 150 mg IM [id number] control 03/31/23 intramuscular suspension #1 mL (Depo-Provera) hydrochlorothiazide 12.5 mg tablet See Rx Instructions .Route 05/29/23 .COMPLEX #90 tabs clonazepam 0.5 mg tablet (Klonopin) 0.5 mg PO TID PRN Anxiety
[2023-08-05 15:51] VITALS: BP 120/41; PULSE 103; RESP 20; TEMP 36.8; O2SAT 98
== END 2023-08-05 15:52 | disposition home or self-care (01) ==
PROVIDERS: Emergency Provider Nurse Practitioner Family
DX: U07.1 COVID-19 (principal); R07.9 Chest pain, unspecified; R50.9 Fever, unspecified; R05.9 Cough, unspecified; R51.9 Headache, unspecified; R53.1 Weakness
CPT/HCPCS: 87635; 99212; 99214; G0463

== ENCOUNTER 2023-09-23 18:20 | Outpatient (CLI) | payer OTHER, SELFPAY ==
[2023-09-23 20:12] LABS: Barbiturates Screen,Urine Negative ng/ml (<200)
[2023-09-23 21:25] LABS: Amphetamine/Metha Screen,Urine Negative ng/ml (<1000); Benzodiazepines Screen,Urine Negative ng/ml (<200); Cannabinoid Screen,Urine Negative ng/ml (<50); Cocaine Screen,Urine Negative ng/ml (<300); Methadone Screen,Urine Negative ng/ml (<300); Opiate Screen,Urine Negative ng/ml (<300); Phencyclidine Screen,Urine Positive ng/ml (<25)
[2023-10-01 02:09] LABS: Alprazolam Negative (Cutoff=100); Benzodiazepines Positive ng/mL (Cutoff=100); Clonazepam Positive (.); Clonazepam Confirm 1163 ng/mL (Cutoff=100); Codeine Comment: (.); Flurazepam Negative (Cutoff=100); Hydrocodone Negative (Cutoff=100); Hydromorphone Negative (Cutoff=100); Lorazepam Negative (Cutoff=100); Midazolam Negative (Cutoff=100); Morphine Comment: (.); Opiates Comment: ng/mL (.); Temazepam Negative (Cutoff=100); Triazolam Negative (Cutoff=100)
== END 2023-09-23 23:59 ==
LOC: LAB.DROPOF 18:21
PROVIDERS: PCP Nurse Practitioner Family; Visit Provider Nurse Practitioner Family
DX: Z79.899 Other long term (current) drug therapy (principal); F41.9 Anxiety disorder, unspecified; M54.9 Dorsalgia, unspecified
CPT/HCPCS: 80307; 80346; 80361; G0480

== ENCOUNTER 2023-11-05 14:21 | Emergency (ER) | payer OTHER, SELFPAY ==
[2023-11-05 14:25] VITALS: BP 161/98; PULSE 131; RESP 21; TEMP 37.2; O2SAT 100; BMI 31.6
[2023-11-05 14:42] LABS: UTC Strep Screen (Rapid) Negative (Negative)
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
[2023-11-05 14:50] VITALS: BP 161/98; PULSE 131; RESP 21; TEMP 37.2; O2SAT 100
== END 2023-11-05 15:01 | disposition home or self-care (01) ==
PROVIDERS: Emergency Provider Nurse Practitioner; PCP Student in an Organized Health Care Education/Training Program
DX: R07.0 Pain in throat (principal); R50.9 Fever, unspecified; J06.9 Acute upper respiratory infection, unspecified; B34.9 Viral infection, unspecified; Z20.818 Contact with and (suspected) exposure to other bacterial communicable diseases
CPT/HCPCS: 87880; 99212; 99213; G0463

== ENCOUNTER 2023-11-20 11:48 | Outpatient (CLI) | payer OTHER, SELFPAY ==
[2023-11-20 12:23] LABS: Basophils # 0.1 K/mm3 (0-0.2); Basophils % 1.2 % (0.1-2.0); Eosinophils # 0.4 K/mm3 (0.0-0.4); Eosinophils % 5.1 % (0.1-12.0); Hematocrit 40.1 % (37.0-47.0); Hemoglobin 13.3 g/dL (12.2-16.2); Lymphocytes # 2.6 K/mm3 (0.7-4.5); Lymphocytes % 33.8 % (10-50); Mean Corpuscular HGB Conc 33.1 g/dL (31.8-35.4); Mean Corpuscular Hemoglobin 30.8 pg (27.0-31.2); Mean Corpuscular Volume 93.3 fl (81-99); Mean Platelet Volume 7.5 fl (7.4-10.4); Monocytes # 0.5 K/mm3 (0.1-1.0); Monocytes % 5.7 % (1.7-9.3); Neutrophils # 4.2 K/mm3 (1.8-7.8); Neutrophils % 54.3 % (37.0-80.0); Platelet Count 408 K/mm3 (142-424); Red Cell Distribution Width 13.3 % (11.5-17.5); White Blood Count 7.8 K/mm3 (4.8-10.8)
[2023-11-20 13:03] LABS: Alanine Aminotransferase 18 U/L (12-78); Albumin Level 4.6 g/dl (3.5-5.0); Alkaline Phosphatase 74 U/L (38-126); Anion Gap 12.5 mEq/L (5-15); Aspartate Amino Transferase 21 U/L (14-36); Bilirubin,Direct 0.1 mg/dl (0.0-0.4); Bilirubin,Indirect 0.2 mg/dL (0.0-0.9); Bilirubin,Total 0.3 mg/dl (0.2-1.3); Bilirubin,Unconjugated 0.2 mg/dL (0.0-1.1); Blood Urea Nitrogen 14 mg/dl (7-17); Calcium 9.4 mg/dl (8.4-10.2); Carbon Dioxide 27 mmol/L (22.0-30.0); Chloride 103 mmol/L (98-107); Chol/HDL Ratio 4.1 (1-3.5); Cholesterol 213 mg/dl (140-200); Estimated Glomerular Filt Rate 80 ml/min (>60); GFR (African American) 97 ML/MIN (>60); Glucose 94 mg/dl (74-100); HDL Cholesterol 52 mg/dl (40-60); Magnesium 2.1 mg/dl (1.6-2.3); Potassium 4.5 mmoL/L (3.5-5.1); Sodium 138 mmol/L (136-145); Triglycerides 230 mg/dl (30-150); VLDL Cholesterol 46 mg/dL (0-40)
[2023-11-20 13:15] LABS: Direct LDL Cholesterol 111.45 mg/dL (100-129)
[2023-11-20 13:20] LABS: Free T4 (Free Thyroxine) 0.93 ng/dl (0.78-2.19)
[2023-11-20 13:33] LABS: Thyroid Stimulating Hormone 1.46 uIU/mL (0.465-4.68)
[2023-11-26 09:33] LABS: Dopamine, Plasma < 30 pg/mL (0-48); Epinephrine, Plasma < 15 pg/mL (0-62); Norepinephrine, Plasma 953 pg/mL (0-874)
[2023-11-26 22:08] LABS: Metanephrine Plasma < 25.0 pg/mL (0.0-88.0)
[2023-11-30 09:38] LABS: Renin 0.356
== END 2023-11-20 23:59 ==
LOC: LAB 11:49
PROVIDERS: PCP Student in an Organized Health Care Education/Training Program; Visit Provider Internal Medicine
DX: I10 Essential (primary) hypertension (principal); R07.9 Chest pain, unspecified; D64.9 Anemia, unspecified; G47.33 Obstructive sleep apnea (adult) (pediatric)
CPT/HCPCS: 36415; 80048; 80061; 80076; 82088; 82384; 83735; 83835; 84244; 84439; 84443; 85025

== ENCOUNTER 2023-11-27 16:12 | Outpatient (CLI) | payer OTHER, SELFPAY ==
[2023-12-01 17:36] LABS: Dopamine, Ur, 24hr 195 ug/24 hr (0-510); Dopamine, Urine 150 ug/L (Undefined); Epinephrine, U, 24hr <4 ug/24 hr (0-20); Epinephrine, Urine <3 ug/L (Undefined); Norepinephrine, Ur 37 ug/L (Undefined); Norepinephrine,U,24h 48 ug/24 hr (0-135); VMA, Urine 1.7 mg/L (Undefined); VMA, Urine, 24hr 2.2 mg/24 hr (0.0-7.5)
[2023-12-02 17:54] LABS: Metanephrine, U,24hr 36 ug/24 hr (36-209); Metanephrine, Ur 28 ug/L (Undefined); Normetanephr.,U,24h 355 ug/24 hr (131-612); Normetanephrine, Ur 273 ug/L (Undefined)
== END 2023-11-27 23:59 ==
LOC: LAB.DROPOF 16:12
PROVIDERS: PCP Student in an Organized Health Care Education/Training Program; Visit Provider Internal Medicine
DX: I10 Essential (primary) hypertension (principal); D64.9 Anemia, unspecified; R07.9 Chest pain, unspecified; G47.33 Obstructive sleep apnea (adult) (pediatric)
CPT/HCPCS: 82384; 83835; 84585

== ENCOUNTER 2023-11-27 16:19 | Emergency (ER) | payer OTHER, SELFPAY ==
[2023-11-27 16:35] VITALS: BP 136/79; PULSE 79; RESP 20; TEMP 37; O2SAT 97; BMI 34.0
[2023-11-27 16:51] LABS: UTC Influenza A Antigen Negative (Negative); UTC Influenza B Antigen Negative (Negative)
[2023-11-27 16:52] LABS: UTC Strep Screen (Rapid) Positive (Negative)
[2023-11-27 16:53] VITALS: BP 136/79; PULSE 79; RESP 20; TEMP 37; O2SAT 97
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
== END 2023-11-27 17:13 | disposition home or self-care (01) ==
PROVIDERS: Emergency Provider Nurse Practitioner; PCP Student in an Organized Health Care Education/Training Program
DX: J02.0 Streptococcal pharyngitis (principal); R51.9 Headache, unspecified; R05.9 Cough, unspecified; R09.81 Nasal congestion; M35.09 Sjogren syndrome with other organ involvement; G47.30 Sleep apnea, unspecified
CPT/HCPCS: 87804; 87880; 99212; 99214; G0463

== ENCOUNTER 2024-01-05 14:07 | Outpatient (CLI) | payer OTHER, SELFPAY | END 2024-01-05 23:59 | disposition home or self-care (01) | LOC: RT 14:08 | PROVIDERS: PCP Student in an Organized Health Care Education/Training Program; Visit Provider Internal Medicine | DX: R00.2 Palpitations (principal); I10 Essential (primary) hypertension | CPT/HCPCS: 93225 ==

== ENCOUNTER 2024-01-07 16:37 | Outpatient (CLI) | payer OTHER, SELFPAY | END 2024-01-07 23:59 | disposition home or self-care (01) | LOC: RT 16:38 | PROVIDERS: PCP Student in an Organized Health Care Education/Training Program; Visit Provider Internal Medicine | DX: R00.2 Palpitations (principal); I10 Essential (primary) hypertension | CPT/HCPCS: 93270 ==

== ENCOUNTER 2024-04-17 11:27 | Emergency (ER) | payer OTHER, SELFPAY ==
[2024-04-17 11:35] VITALS: BP 130/94; PULSE 120; RESP 20; TEMP 36.7; O2SAT 100; BMI 36.6
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
[2024-04-17 11:56] LABS: Apearance,Urine Clear (Clear); Bilirubin,Urine 2+ (Negative); Blood, Urine Negative (Negative); Color,Urine Orange (Yellow); Glucose,Urine (UA) 250 (Negative); Ketones,Urine 15 (Negative); Protein,Urine 3+ (Negative); Specific Gravity, Urine 1.015 (1.005-1.030); UTC Leukocyte Esterase,Urine 3+ (Negative); UTC Nitrate,Urine Positive (Negative); Urobilinogen,Urine >=8 EU/dl (0.2)
[2024-04-17 12:02] VITALS: BP 130/94; PULSE 120; RESP 20; TEMP 36.7; O2SAT 100
== END 2024-04-17 12:07 | disposition home or self-care (01) ==
PROVIDERS: Emergency Provider Nurse Practitioner; PCP Student in an Organized Health Care Education/Training Program
DX: N39.0 Urinary tract infection, site not specified (principal); R31.9 Hematuria, unspecified; M54.59 Other low back pain; R35.0 Frequency of micturition; R39.15 Urgency of urination
CPT/HCPCS: 81003; 87086; 99212; 99214; G0463

== ENCOUNTER 2024-04-19 14:42 | Outpatient (CLI) | payer MEDICAID, SELFPAY ==
[2024-04-19 18:54] LABS: Alanine Aminotransferase 21 U/L (12-78); Albumin Level 4.5 g/dl (3.5-5.0); Albumin/Globulin Ratio 1.5 (1.1-1.8); Alkaline Phosphatase 59 U/L (38-126); Anion Gap 14.5 mEq/L (5-15); Aspartate Amino Transferase 22 U/L (14-36); Bilirubin,Total 0.4 mg/dl (0.2-1.3); Blood Urea Nitrogen 11 mg/dl (7-17); Calcium 9.6 mg/dl (8.4-10.2); Carbon Dioxide 25 mmol/L (22.0-30.0); Chloride 105 mmol/L (98-107); Estimated Glomerular Filt Rate 80 ml/min (>60); GFR (African American) 97 ML/MIN (>60); Globulin 3.1 g/dL (1.3-3.2); Glucose 96 mg/dl (74-100); Potassium 4.5 mmoL/L (3.5-5.1); Sodium 140 mmol/L (136-145); Total Protein,Serum 7.6 g/dl (6.3-8.2)
[2024-04-19 19:47] LABS: Basophils # 0.1 K/mm3 (0-0.2); Basophils % 0.8 % (0.1-2.0); Eosinophils # 0.4 K/mm3 (0.0-0.4); Eosinophils % 5.4 % (0.1-12.0); Hematocrit 40.2 % (37.0-47.0); Hemoglobin 13.1 g/dL (12.2-16.2); Lymphocytes # 2.2 K/mm3 (0.7-4.5); Lymphocytes % 33.6 % (10-50); Mean Corpuscular HGB Conc 32.6 g/dL (31.8-35.4); Mean Corpuscular Hemoglobin 29.8 pg (27.0-31.2); Mean Corpuscular Volume 91.4 fl (81-99); Mean Platelet Volume 8.7 fl (7.4-10.4); Monocytes # 0.3 K/mm3 (0.1-1.0); Monocytes % 5.1 % (1.7-9.3); Neutrophils # 3.6 K/mm3 (1.8-7.8); Neutrophils % 55.1 % (37.0-80.0); Platelet Count 396 K/mm3 (142-424); Red Cell Distribution Width 13.8 % (11.5-17.5); White Blood Count 6.6 K/mm3 (4.8-10.8)
[2024-04-19 20:01] LABS: Hemoglobin A1C 6.1 % (4.0-6.0)
== END 2024-04-19 23:59 | disposition home or self-care (01) ==
LOC: LAB.DROPOF 04-20 14:42
PROVIDERS: PCP Student in an Organized Health Care Education/Training Program; Visit Provider Student in an Organized Health Care Education/Training Program
DX: N39.0 Urinary tract infection, site not specified (principal); R31.9 Hematuria, unspecified; R81 Glycosuria; I10 Essential (primary) hypertension
CPT/HCPCS: 80053; 83036; 85025

== ENCOUNTER 2024-04-26 15:33 | Outpatient (CLI) | payer MEDICAID, SELFPAY | END 2024-04-26 23:59 | disposition home or self-care (01) | LOC: LAB.DROPOF 04-27 13:38 | PROVIDERS: PCP Student in an Organized Health Care Education/Training Program; Visit Provider Student in an Organized Health Care Education/Training Program | DX: J02.9 Acute pharyngitis, unspecified (principal); B95.4 Other streptococcus as the cause of diseases classified elsewhere | CPT/HCPCS: 87070; 87077; 87186 ==

== ENCOUNTER 2024-07-07 13:26 | Outpatient (CLI) | payer MEDICAID, SELFPAY | END 2024-07-07 23:59 | disposition home or self-care (01) | LOC: LAB.DROPOF 07-08 13:24 | PROVIDERS: PCP Student in an Organized Health Care Education/Training Program; Visit Provider Student in an Organized Health Care Education/Training Program | DX: R39.9 Unspecified symptoms and signs involving the genitourinary system (principal) | CPT/HCPCS: 87086 ==

== ENCOUNTER 2024-07-07 14:14 | Emergency (ER) | payer MEDICAID, SELFPAY ==
[2024-07-07 14:16] VITALS: BP 191/136; PULSE 87; RESP 18; TEMP 36.6; O2SAT 96; BMI 37.1
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
--- NOTE | 2024-07-07 14:23 | PC.NURSE ---
JHONNY HERNADEZ AT BEDSIDE
[2024-07-07 14:36] LABS: Microscopic, Urine URINE MICROSCOPIC (MICROSCOPIC)
[2024-07-07 14:37] VITALS: BP 137/99; PULSE 81; O2SAT 98
[2024-07-07 14:41] LABS: Appearance,Urine SL CLOUDY (Clear); Bilirubin,Urine 1+ (Negative); Blood, Urine Negative (Negative); Glucose,Urine (UA) TRACE (Negative); Ketones,Urine Negative (Negative); Leukocyte Esterase,Urine TRACE (Negative); Nitrate,Urine POSITIVE (Negative); Protein,Urine 2+ (Negative); Urobilinogen,Urine >=8.0 EU/dl (0.2)
[2024-07-07 14:42] LABS: Color,Urine ORANGE (Yellow)
[2024-07-07 14:42] LABS: Urine Pregnancy, HCG Qual. Negative (Negative)
[2024-07-07 14:43] LABS: Basophils # 0.1 K/mm3 (0-0.2); Basophils % 1.2 % (0.1-2.0); Eosinophils # 0.3 K/mm3 (0.0-0.4); Eosinophils % 4.7 % (0.1-12.0); Hematocrit 42.1 % (37.0-47.0); Hemoglobin 14.3 g/dL (12.2-16.2); Lymphocytes # 2.3 K/mm3 (0.7-4.5); Lymphocytes % 34.3 % (10-50); Mean Corpuscular HGB Conc 33.9 g/dL (31.8-35.4); Mean Corpuscular Hemoglobin 29.8 pg (27.0-31.2); Mean Corpuscular Volume 87.7 fl (81-99); Mean Platelet Volume 7.1 fl (7.4-10.4); Monocytes # 0.3 K/mm3 (0.1-1.0); Monocytes % 4.4 % (1.7-9.3); Neutrophils # 3.7 K/mm3 (1.8-7.8); Neutrophils % 55.4 % (37.0-80.0); Platelet Count 358 K/mm3 (142-424); Red Cell Distribution Width 13.5 % (11.5-17.5); White Blood Count 6.7 K/mm3 (4.8-10.8)
[2024-07-07 14:44] LABS: Albumin Level 4.8 g/dl (3.5-5.0); Chloride 103 mmol/L (98-107)
[2024-07-07 14:45] LABS: Potassium 3.9 mmoL/L (3.5-5.1); Sodium 138 mmol/L (136-145)
[2024-07-07 14:47] LABS: Alanine Aminotransferase 34 U/L (12-78); Anion Gap 11.9 mEq/L (5-15); Aspartate Amino Transferase 29 U/L (14-36); Blood Urea Nitrogen 9 mg/dl (7-17); Carbon Dioxide 27 mmol/L (22.0-30.0); Creatinine Clearance Estimated 138 mL/min (50-200); Estimated Glomerular Filt Rate 70 ml/min (>60); GFR (African American) 84 ML/MIN (>60)
[2024-07-07 14:48] LABS: Albumin/Globulin Ratio 1.4 (1.1-1.8); Alkaline Phosphatase 75 U/L (38-126); Bilirubin,Total 0.5 mg/dl (0.2-1.3); Calcium 9.3 mg/dl (8.4-10.2); Globulin 3.4 g/dL (1.3-3.2); Glucose 132 mg/dl (74-100); Total Protein,Serum 8.2 g/dl (6.3-8.2)
[2024-07-07 14:50] LABS: Bacteria,Urine Trace /lpf; WBC,Urine Occasional #/hpf (0-3)
--- NOTE | 2024-07-07 14:51 | PC.NURSE ---
ROUNDED ON PT, CALL LIGHT WITHIN REACH. PT OFFERED PILLOW AND BLANKET, DECLINED. NO NEEDS AT THIS TIME
[2024-07-07 15:23] VITALS: BP 144/101; PULSE 81; RESP 16; TEMP 36.6; O2SAT 91
[2024-07-07 16:44] LABS: HIV (1&2) Antibody Rapid NONREACTIVE (NONREACTIVE)
[2024-07-08 05:56] LABS: HCV Ab Non Reactive (Non Reactive)
== END 2024-07-07 15:24 | disposition home or self-care (01) ==
PROVIDERS: Emergency Medicine; Physician Assistant; Emergency Provider Emergency Medicine; PCP Student in an Organized Health Care Education/Training Program
DX: R10.30 Lower abdominal pain, unspecified (principal); R10.9 Unspecified abdominal pain; I10 Essential (primary) hypertension
CPT/HCPCS: 80053; 81001; 81025; 85025; 86803; 87389; 99283

== ENCOUNTER 2024-07-11 15:02 | Outpatient (CLI) | payer MEDICAID, SELFPAY | END 2024-07-11 23:59 | disposition home or self-care (01) | LOC: LAB.DROPOF 07-12 15:22 | PROVIDERS: PCP Student in an Organized Health Care Education/Training Program; Visit Provider Student in an Organized Health Care Education/Training Program | DX: N39.0 Urinary tract infection, site not specified (principal); R31.9 Hematuria, unspecified; R39.9 Unspecified symptoms and signs involving the genitourinary system | CPT/HCPCS: 87086 ==

== ENCOUNTER 2024-08-02 21:43 | Outpatient (CLI) | payer MEDICAID, SELFPAY | END 2024-08-02 23:59 | disposition home or self-care (01) | PROVIDERS: PCP Student in an Organized Health Care Education/Training Program; Visit Provider Student in an Organized Health Care Education/Training Program | DX: Z13.1 Encounter for screening for diabetes mellitus (principal) | CPT/HCPCS: 83036 ==